=== PATIENT | male | born 1930 | race Caucasian/White ===

== ENCOUNTER 2016-07-31 12:03 | Inpatient (IN) | payer MEDICARE, BC ==
[~2016-07-31] VITALS: Ht 172.7 cm; Wt 60.3 kg
[~2016-07-31 12:03] MED LIST: ATEN1TAB73 PO; BIOTCAP PO; ECHI167T PO; GABA100C4 PO; GNP120TA3 PO; OMEG1CAP53 PO; SAWPOW; VITA400C28 PO; VITA400C70 PO
[2016-07-31 12:08] VITALS: BP 198/74; PULSE 65; RESP 17; TEMP 98.2; O2SAT 96
--- NOTE | 2016-07-31 14:43 | PD ---
HPI Chief Complaint: Abdominal Pain Time Seen by Provider: 14:35 Travel History International Travel<30 days: Yes Contact w/Intl Traveler<30days: [place] of Country Traveled to: [place] Traveled to known affect area: No History of Present Illness HPI 85-year-old male presents for evaluation of abdominal pain. Symptoms started this morning when he woke up at 9 AM. He describes it as an aching pain in the epigastrium which is constant. Nothing makes it better or worse. The pain does not radiate anywhere else. Denies any chest pain or shortness of breath, fevers or chills, flank pain, dysuria, testicular or scrotal pain, hematuria, diarrhea or constipation. He does note that he has had a dry cough for about a week. He reports a history of bilateral hernia repair as well as appendectomy in the past. No history of pancreatitis, cholecystitis. No other complaints. Primary care physician is Dr. Nam. [facility] Past Medical History Anemia: Yes Arthritis: Yes (HANDS KNEES) Atrial Fibrillation: Yes Autoimmune Disease: No Blood Disorders: No Anxiety: Yes Depression: Yes Heart Rhythm Problems: Yes (HISTORY OF ARRYTHMIA, ATENOLOL QOD ) Cancer: No Cardiovascular Problems: Yes (afib) Chemotherapy: No Cerebrovascular Accident: No Diabetes: No Diminished Hearing: No Endocrine: No Gastrointestinal Disorders: Yes (HX OF COLON POLYPS, DIVERTICULOSIS) GERD: Yes Genitourinary: No Headaches: Yes Hepatitis: No Hiatal Hernia: No Hypertension: No Immune Disorder: No Musculoskeletal: Yes Neurologic: No Psychiatric: No Reproductive: No Respiratory: No Immunizations Current: No Radiation Therapy: No Renal Failure: No Seizures: No Thyroid Disease: No Ulcer: Yes (GASTRIC) Past Surgical History Abdominal Surgery: Yes AICD: No Appendectomy: Yes Cardiac Surgery: No Cholecystectomy: Yes (2004) Ear Surgery: No Endocrine Surgery: No Eye Surgery: Yes (CATARACTS) Genitourinary Surgery: No Gynecologic Surgery: No Joint Replacement: No Neurologic Surgery: Yes (LUMBAR LAMINECTOMY) Oral Surgery: Yes (DENTURES, TONSILECTOMY) Pacemaker: No Thoracic Surgery: No Other Surgery: Yes Social History Alcohol Use: No Tobacco Use: No Substance Use: No Allergies-Medications (Allergen,Severity, Reaction): Coded Allergies: Local Anesthetics (Verified Allergy, Severe, ALLERGY TO NOVOCAIN, 3/27/17) PT STATES THAT HE HAS HAD NOVOCAINE NUMEROUS TIMES SINCE THIS EPISODE ALMOST 30 YRS AGO WITHOUT PROBLEM Reported Meds & Prescriptions Reported Meds & Active Scripts Active Review of Systems Except as stated in HPI: all other systems reviewed are Neg Physical Exam Narrative GENERAL: Well-developed well-nourished male in no acute distress SKIN: Warm and dry. HEAD: Atraumatic. Normocephalic. EYES: Pupils equal and round. No scleral icterus. No injection or drainage. ENT: No nasal bleeding or discharge. Mucous membranes pink and moist. NECK: Trachea midline. No JVD. CARDIOVASCULAR: Regular rate and rhythm. No murmur appreciated. RESPIRATORY: No accessory muscle use. Clear to auscultation. Breath sounds equal bilaterally. GASTROINTESTINAL: Abdomen soft, tender to palpation in the epigastrium without guarding. Mild right upper quadrant and left upper quadrant tenderness. MUSCULOSKELETAL: No obvious deformities. No edema. NEUROLOGICAL: Awake and alert. No obvious cranial nerve deficits. Motor grossly within normal limits. Normal speech. PSYCHIATRIC: Appropriate mood and affect; insight and judgment normal. Data Data Last Documented VS Vital Signs Date Time Temp Pulse Resp B/P Pulse Ox O2 Delivery O2 Flow Rate FiO2 07/31/16 17:30 18 07/31/16 17:30 67 159/73 97 Room Air 07/31/16 12:08 98.2 Orders Complete Blood Count With Diff (07/31/16 14:41) Comprehensive Metabolic Panel (07/31/16 14:41) Lipase (07/31/16 14:41) Urinalysis - C+S If Indicated (07/31/16 14:41) Ct Abd/Pel W Iv Contrast(Rout) (07/31/16 14:41) Electrocardiogram (07/31/16 14:41) Ed Poc Ultrasound (07/31/16 ) Labs Laboratory Tests Test 07/31/16 14:50 White Blood Count 8.3 TH/MM3 Red Blood Count 4.27 MIL/MM3 Hemoglobin 12.6 GM/DL Hematocrit 37.3 % Mean Corpuscular Volume 87.3 FL Mean Corpuscular Hemoglobin 29.6 PG Mean Corpuscular Hemoglobin 33.9 % Concent Red Cell Distribution Width 14.8 % Platelet Count 183 TH/MM3 Mean Platelet Volume 9.3 FL Neutrophils (%) (Auto) 64.6 % Lymphocytes (%) (Auto) 25.4 % Monocytes (%) (Auto) 9.0 % Eosinophils (%) (Auto) 0.5 % Basophils (%) (Auto) 0.5 % Neutrophils # (Auto) 5.4 TH/MM3 Lymphocytes # (Auto) 2.1 TH/MM3 Monocytes # (Auto) 0.7 TH/MM3 Eosinophils # (Auto) 0.0 TH/MM3 Basophils # (Auto) 0.0 TH/MM3 CBC Comment DIFF FINAL Differential Comment Urine Color LIGHT-YELLOW Urine Turbidity CLEAR Urine pH 8.0 Urine Specific [place] 1.007 Urine Protein NEG mg/dL Urine Glucose (UA) NEG mg/dL Urine Ketones NEG mg/dL Urine Occult Blood SMALL Urine Nitrite NEG Urine Bilirubin NEG Urine Urobilinogen LESS THAN 2.0 MG/DL Urine Leukocyte Esterase NEG Urine RBC 47 /hpf Urine WBC 1 /hpf Urine Squamous Epithelial <1 /hpf Cells Microscopic Urinalysis Comment CULT NOT INDICATED Sodium Level 141 MEQ/L Potassium Level 4.1 MEQ/L Chloride Level 103 MEQ/L Carbon Dioxide Level 32.5 MEQ/L Anion Gap 6 MEQ/L Blood Urea Nitrogen 16 MG/DL Creatinine 0.87 MG/DL Estimat Glomerular Filtration 84 ML/MIN Rate Random Glucose 106 MG/DL Calcium Level 8.8 MG/DL Total Bilirubin 0.2 MG/DL Aspartate Amino Transf 45 U/L (AST/SGOT) Alanine Aminotransferase 48 U/L (ALT/SGPT) Alkaline Phosphatase 63 U/L Total Protein 6.5 GM/DL Albumin 3.5 GM/DL Lipase 1103 U/L [facility] Medical Decision Making Medical Screen Exam Complete: Yes Emergency Medical Condition: Yes Medical Record Reviewed: Yes Differential Diagnosis Pancreatitis, bowel obstruction, biliary colic, cholecystitis, AAA, ACS, colitis , gastritis Narrative Course 85-year-old male who woke up with epigastric abdominal pain this morning. The patient was initially seen in triage were lab work, EKG, CT abdomen and pelvis have been ordered. The patient will be moved to medical bed when one becomes available. [employer] Trev[employer] Jul 31, 2016 14:43
[2016-07-31 15:28] LABS: AUTOMATED NEUTROPHIL # 5.4 TH/MM3 (1.8-7.7); BASOPHIL % 0.5 % (0.0-2.0); EOSINOPHIL % 0.5 % (0.0-4.0); HEMATOCRIT 37.3 % (39.0-51.0); HEMO FLAGS DIFF FINAL; LYMPH % 25.4 % (9.0-44.0); LYMPHOCYTE # 2.1 TH/MM3 (1.0-4.8); MEAN CELL VOLUME 87.3 FL (80.0-100.0); MEAN CORPUSCULAR HEMOGLOBIN 29.6 PG (27.0-34.0); MEAN CORPUSCULAR HGB CONC 33.9 % (32.0-36.0); NEUT % 64.6 % (16.0-70.0); PLATELET COUNT 183 TH/MM3 (150-450); RED BLOOD COUNT 4.27 MIL/MM3 (4.50-5.90); RED CELL DISTRIBUTION WIDTH 14.8 % (11.6-17.2); WHITE BLOOD COUNT 8.3 TH/MM3 (4.0-11.0)
[2016-07-31 15:35] LABS: BLOOD, URINE SMALL (NEG); GLUCOSE,URINE NEG (NEG); KETONE, URINE NEG (NEG); NITRITE,URINE NEG (NEG); SQUAMOUS EPITHELIAL CELL URINE <1 /hpf (0-5); URINE COLOR LIGHT-YELLOW (YELLW/STRAW)
[2016-07-31 15:37] LABS: COMMENT (UR) CULT NOT INDICATED; CULTURE IF INDICATED CULT NOT INDICATED
[2016-07-31 15:48] LABS: ANION GAP 6 MEQ/L (5-15); AST (GOT) 45 U/L (15-37); BICARBONATE 32.5 MEQ/L (21.0-32.0); BLOOD UREA NITROGEN 16 MG/DL (7-18); CHLORIDE 103 MEQ/L (98-107); GLOMERULAR FILTRATION RATE 84 ML/MIN (>89); POTASSIUM 4.1 MEQ/L (3.5-5.1); SODIUM (NA) 141 MEQ/L (136-145)
[2016-07-31 15:51] LABS: ALKALINE PHOSPHATASE 63 U/L (45-117); ALT (GPT) 48 U/L (12-78); TOTAL BILIRUBIN ADULT 0.2 MG/DL (0.2-1.0)
[2016-07-31 17:30] VITALS: BP 159/73; PULSE 67; RESP 16; O2SAT 97
[2016-07-31] MEDS ORDERED: IOHEXOL 350 MG/ML 10 ML VIAL (for RAD DIAG) IV ONE (18:08)
[2016-07-31] MEDS ORDERED: BIOT50005 PO (18:15)
[2016-07-31] MEDS ORDERED: VITATAB11 PO (18:15)
[2016-07-31] MEDS ORDERED: [UNRECOGNIZED DRUG - CODE] PO (18:15)
[2016-07-31] MEDS ORDERED: OMEP40CA2 PO (18:15)
[2016-07-31] MEDS ORDERED: MISC1CAP2 PO (18:15)
[2016-07-31] MEDS ORDERED: TYLE325T PO (18:15)
[2016-07-31] MEDS ORDERED: ATEN50TA PO (18:15)
[2016-07-31] MEDS ORDERED: GLUCCAP5 PO (18:15)
[2016-07-31] MEDS ORDERED: VITA10006 PO (18:15)
[2016-07-31] MEDS ORDERED: NAPR220T95 PO (18:15)
[2016-07-31] MEDS ORDERED: PREV10CA PO (18:15)
[2016-07-31] MEDS ORDERED: GINK120C4 PO (18:15)
[2016-07-31] MEDS ORDERED: OMEG5CAP PO (18:15)
[2016-07-31] MEDS ORDERED: TAMS0.4C4 PO (18:15)
[2016-07-31] MEDS ORDERED: VITA200012 PO (18:15)
[2016-07-31] MEDS ORDERED: GABA300C5 PO (18:15)
--- NOTE | 2016-07-31 18:29 | RADRPT ---
EXAM DATE/TIME: 07/31/2016 17:59 [place] COMPARISON: CT PULMONARY ANGIOGRAM, June 17, 2015, 12:01. INDICATIONS : Epigastric pain since this morning. IV CONTRAST: 70 cc Omnipaque 350 (iohexol) IV ORAL CONTRAST: No oral contrast ingested. RADIATION DOSE: 9.96 CTDIvol (mGy) MEDICAL HISTORY : Cardiovascular disease. Gastroesophageal reflux disease. Diverticulosis.Prostate cancer SURGICAL HISTORY : Appendectomy. Cholecystectomy.Discectomy, lumbar.Hernia's ENCOUNTER: Initial ACUITY: 1 day PAIN SCALE: 7/10 LOCATION: epigastric region TECHNIQUE: Volumetric scanning of the abdomen and pelvis was performed. Using automated exposure control and ad justment of the mA and/or kV according to patient size, radiation dose was kept as low as reasonably achievable to obtain optimal diagnostic quality images. FINDINGS: There is moderate hydronephrosis on the left to the level of the proximal ureter which raises the pos sibility of congenital UPJ obstruction or possible proximal ureteral stricture. No calcified obstruc ting calculus is noted. Bilateral renal cysts are noted. The largest cyst is noted arising from the lower pole on the left and measures 6.2 cm. The liver, spleen, pancreas and adrenal glands are unre markable. The gallbladder has been resected. The abdominal aorta is calcified but is not aneurysmal ly dilated. The inferior vena cava is normal. No paraaortic, retroperitoneal or mesenteric lymphaden opathy is noted. Degenerative changes are noted throughout the thoracolumbar spine. The urinary bita dder is unremarkable. The prostate gland contains multiple radiation seed implants. No pelvic lymphad enopathy is noted. Bilateral inguinal hernia repairs are noted. No recurrent abdominal wall hernia i s noted. The visualized lung bases are clear. CONCLUSION: 1. Moderate hydronephrosis on the left to the level of the proximal ureter suggestive of congenital U PJ obstruction or possible proximal ureteral stricture. No calcified obstructing ureteral calculus i s noted. 2. Bilateral renal cysts. 3. Degenerative changes throughout the thoracolumbar spine. Yusuf Sneed MD on July 31, 2016 at 18:15 Board Certified Radiologist. This report was verified electronically.
[2016-07-31 18:50] VITALS: BP 159/71; PULSE 68; RESP 16; O2SAT 99
--- NOTE | 2016-07-31 19:24 | PD ---
Physical Exam Narrative I, Dr. Jackson, have reviewed the advance practice practitioner's documentation and am in agreement, met with the patient face to face, made the diagnosis, and the medical decision making was done by me. *My assessment and Findings: Acute pancreatitis vs. gastritis 85yo M with PMH of prostate CA presents to the ED with c/o epigastric abdominal pain that started at 9am this morning. States initially he had back pain but it is now in epigastric region. +Chills. +Hematuria. Denies n/v, dysuria. Labs reviewed, no leukocytosis. H/H low at 12.6/37.3 but at baseline. Lipase is elevated at 1103. AST mildly elevated at 45. UA showed small blood. RBC 47. CTa/p showed moderate hydronephrosis on left suggestive of congenital UPJ obstruction or possible proximal ureteral stricture. Pancreas unremarkable in CT scan. Morphine 2mg IV given for pain. Pt's urologist is Dr. Sushil Reilly. Discussed with Dr. Dinh and accepted to her service for pancreatitis. Data Data Last Documented VS Vital Signs Date Time Temp Pulse Resp B/P Pulse Ox O2 Delivery O2 Flow Rate FiO2 07/31/16 18:50 68 16 159/71 99 Room Air 07/31/16 12:08 98.2 Orders Complete Blood Count With Diff (07/31/16 14:41) Comprehensive Metabolic Panel (07/31/16 14:41) Lipase (07/31/16 14:41) Urinalysis - C+S If Indicated (07/31/16 14:41) Ct Abd/Pel W Iv Contrast(Rout) (07/31/16 14:41) Electrocardiogram (07/31/16 14:41) Ed Poc Ultrasound (07/31/16 ) Iohexol 350 Inj (Omnipaque 350 Inj) (07/31/16 18:08) Morphine Inj (Morphine Inj) (07/31/16 19:30) D5-1/2 Ns + Kcl 20 Meq Inj (D5-1/2 Ns + (07/31/16 19:30) Admit Order (Ed Use Only) (07/31/16 19:52) Labs Laboratory Tests Test 07/31/16 14:50 White Blood Count 8.3 TH/MM3 Red Blood Count 4.27 MIL/MM3 Hemoglobin 12.6 GM/DL Hematocrit 37.3 % Mean Corpuscular Volume 87.3 FL Mean Corpuscular Hemoglobin 29.6 PG Mean Corpuscular Hemoglobin 33.9 % Concent Red Cell Distribution Width 14.8 % Platelet Count 183 TH/MM3 Mean Platelet Volume 9.3 FL Neutrophils (%) (Auto) 64.6 % Lymphocytes (%) (Auto) 25.4 % Monocytes (%) (Auto) 9.0 % Eosinophils (%) (Auto) 0.5 % Basophils (%) (Auto) 0.5 % Neutrophils # (Auto) 5.4 TH/MM3 Lymphocytes # (Auto) 2.1 TH/MM3 Monocytes # (Auto) 0.7 TH/MM3 Eosinophils # (Auto) 0.0 TH/MM3 Basophils # (Auto) 0.0 TH/MM3 CBC Comment DIFF FINAL Differential Comment Urine Color LIGHT-YELLOW Urine Turbidity CLEAR Urine pH 8.0 Urine Specific [place] 1.007 Urine Protein NEG mg/dL Urine Glucose (UA) NEG mg/dL Urine Ketones NEG mg/dL Urine Occult Blood SMALL Urine Nitrite NEG Urine Bilirubin NEG Urine Urobilinogen LESS THAN 2.0 MG/DL Urine Leukocyte Esterase NEG Urine RBC 47 /hpf Urine WBC 1 /hpf Urine Squamous Epithelial <1 /hpf Cells Microscopic Urinalysis Comment CULT NOT INDICATED Sodium Level 141 MEQ/L Potassium Level 4.1 MEQ/L Chloride Level 103 MEQ/L Carbon Dioxide Level 32.5 MEQ/L Anion Gap 6 MEQ/L Blood Urea Nitrogen 16 MG/DL Creatinine 0.87 MG/DL Estimat Glomerular Filtration 84 ML/MIN Rate Random Glucose 106 MG/DL Calcium Level 8.8 MG/DL Total Bilirubin 0.2 MG/DL Aspartate Amino Transf 45 U/L (AST/SGOT) Alanine Aminotransferase 48 U/L (ALT/SGPT) Alkaline Phosphatase 63 U/L Total Protein 6.5 GM/DL Albumin 3.5 GM/DL Lipase 1103 U/L [facility] Supervised Visit with SHARON: Yes Interpretation(s) EKG: NSR 83bpm. Normal axis. No ST segment elevation or depression. Diagnosis Primary Impression: Pancreatitis Qualified Code: K85.90 - Acute pancreatitis, unspecified complication status, unspecified pancreatitis type Additional Impression: Hydronephrosis Qualified Code: N13.1 - Hydronephrosis with ureteral stricture, not elsewhere classified Admitting Information Admitting Physician Requests: Admit Fátima Jackson DO Jul 31, 2016 19:24
[2016-07-31] MEDS ORDERED: MORPHINE SULFATE 4 MG/ML INJ IV PUSH ONE (19:30)
[2016-07-31] MEDS ORDERED: D5-1/2 NS + KCL 20 MEQ INJ 1,000 ML IV SCH (19:30)
--- NOTE | 2016-07-31 19:58 | HHI.HP ---
[facility] Brenda Davis MD Admission Diagnosis Hydronephrosis, pancreatitis Diagnoses: (1) Pancreatitis Diagnosis: Principal (2) Hydronephrosis Diagnosis: Principal (3) Prostate CA Diagnosis: Principal (4) HTN (hypertension) Diagnosis: Principal Travel History International Travel<30 Days: Yes Contact w/Intl Traveler <30 Da: [place] of Country Traveled to: [place] Traveled to Known Affected Are: No History of Present Illness This is an 85-year-old male with PMH of HTN, A-fib and Prostate CA who presented to the ER w/ complaints of acute onset of epigastric pain. States symptoms started earlier this morning, associated nausea but no vomiting. Denies fever, chills or diarrhea. On arrival, BP 198/74, HR 65, O2 sat 96% on RA, Afebrile. CBC unremarkable. Chemistry essentially unremarkable. Lipase 1103. UA with hematuria. 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 BUN/Creatinine normal. Urine output normal. Following w/ Dr. Reilly as outpatient, recent diagnosis of Prostate CA 2 months ago, scheduled for MRI at [facility] tomorrow for staging. Review of Systems Except as stated in HPI: all other systems reviewed are Neg ROS: 14 point review of systems otherwise negative. Past Family Social History Past Medical History PMH: HTN, A-fib and Prostate CA Past Surgical History PAST SURGICAL HISTORY: Appendectomy, Cataract Surgery, Cholecystectomy, Lumbar Laminectomy, Tonsillectomy Allergies: Coded Allergies: Local Anesthetics (Verified Allergy, Severe, ALLERGY TO NOVOCAIN, 07/31/16) PT STATES THAT HE HAS HAD NOVOCAINE NUMEROUS TIMES SINCE THIS EPISODE ALMOST 30 YRS AGO WITHOUT PROBLEM Family History PAST FAMILY HISTORY: Reviewed. No h/o DM or CAD Social History PAST SOCIAL HISTORY: Negative for alcohol, tobacco or drugs. Physical Exam Vital Signs Vital Signs Date Time Temp Pulse Resp B/P Pulse Ox O2 Delivery O2 Flow Rate FiO2 07/31/16 18:50 68 16 159/71 99 Room Air 07/31/16 17:30 18 3/27/17 17:30 67 16 159/73 97 Room Air 07/31/16 12:08 98.2 65 17 198/74 96 Physical Exam PE: GENERAL: Very pleasant elderly Serbian male in no acute distress. HEENT: PERRLA, EOMI. No scleral icterus or conjunctival pallor. No lid lag or facial droop. CARDIOVASCULAR: Regular rate and rhythm. No obvious murmurs to auscultation. No chest tenderness to palpation. RESPIRATORY: No obvious rhonchi or wheezing. Clear to auscultation. Breath sounds equal bilaterally. GASTROINTESTINAL: Abdomen soft, mild epigastric tenderness to palpation, nondistended. BS normal. MUSCULOSKELETAL: Extremities without clubbing, cyanosis, or edema. No obvious deformities. NEUROLOGICAL: Awake, alert and oriented x4. No focal neurologic deficits. Moving both upper and lower extremities spontaneously. Laboratory Laboratory Tests Test 07/31/16 14:50 White Blood Count 8.3 Red Blood Count 4.27 Hemoglobin 12.6 Hematocrit 37.3 Mean Corpuscular Volume 87.3 Mean Corpuscular Hemoglobin 29.6 Mean Corpuscular Hemoglobin 33.9 Concent Red Cell Distribution Width 14.8 Platelet Count 183 Mean Platelet Volume 9.3 Neutrophils (%) (Auto) 64.6 Lymphocytes (%) (Auto) 25.4 Monocytes (%) (Auto) 9.0 Eosinophils (%) (Auto) 0.5 Basophils (%) (Auto) 0.5 Neutrophils # (Auto) 5.4 Lymphocytes # (Auto) 2.1 Monocytes # (Auto) 0.7 Eosinophils # (Auto) 0.0 Basophils # (Auto) 0.0 CBC Comment DIFF FINAL Differential Comment Urine Color LIGHT-YELLOW Urine Turbidity CLEAR Urine pH 8.0 Urine Specific [place] 1.007 Urine Protein NEG Urine Glucose (UA) NEG Urine Ketones NEG Urine Occult Blood SMALL Urine Nitrite NEG Urine Bilirubin NEG Urine Urobilinogen LESS THAN 2.0 Urine Leukocyte Esterase NEG Urine RBC 47 Urine WBC 1 Urine Squamous Epithelial <1 Cells Microscopic Urinalysis Comment CULT NOT INDICATED Sodium Level 141 Potassium Level 4.1 Chloride Level 103 Carbon Dioxide Level 32.5 Anion Gap 6 Blood Urea Nitrogen 16 Creatinine 0.87 Estimat Glomerular Filtration 84 Rate Random Glucose 106 Calcium Level 8.8 Total Bilirubin 0.2 Aspartate Amino Transf 45 (AST/SGOT) Alanine Aminotransferase 48 (ALT/SGPT) Alkaline Phosphatase 63 Total Protein 6.5 Albumin 3.5 Lipase 1103 Result Diagram: 07/31/16 1450 07/31/16 1450 Assessment and Plan Problem List: (1) Pancreatitis ICD Code: K85.90 Status: Acute (2) Hydronephrosis ICD Code: N13.30 Status: Acute (3) Prostate CA ICD Code: C61 Status: Acute (4) HTN (hypertension) ICD Code: I10 Status: Acute Assessment and Plan A/P: 1. Pancreatitis: acute onset of epigastric pain w/ associated nausea. Lipase 1103. CT Abd/Pelvis w/ no abnormalities involving the pancreas, images reviewed by me. Protonix IV, IVF, repeat lipase in am. Analgesics/antiemetics as needed. 2. Hydronephrosis: CT Abd/Pelvis w/ moderate left hydronephrosis suggestive of congenital UPJ obstruction or ureteral stricture, no stone noted, images reviewed by me. No recent images for comparison. BUN/Creatinine normal. Urine output normal. 3. Prostate CA: recent diagnosis 2months ago per patient, following w/ Dr. Reilly. Scheduled for MRI tomorrow at [facility] for Prostate Staging. Will order MRI here as pt has already gone through prep. Called Dr. Reilly's service in order to get details on specific MRI requested, however was told Dr. Reilly has no privileges and we would need to call Urology [employer]. Spoke w/ Dr. Beltran, recommended I contact [facility] for specific order. Called [facility], they are closed at this time. Reviewed order from [facility] via ER system w/ assistance of ER doc, order is for MRI w/ and w/o contrast. Will order same. Fleet enema 2hrs pior to imaging. Pt to follow w/ Dr. Reilly as outpatient. 4. HTN: BP 190's on arrival, likely compounded by pain complaints, currently BP 150's. Will monitor. Resume home Atenolol. 5. DVT Prophylaxis: SCD/Teds. 6. Social work for d/c planning as needed. 7. Case discussed w/ ER physician at length. Physician Certification 2 Midnight Certification Type: Admission for Inpatient Services Order for Inpatient Services The services are ordered in accordance with Medicare regulations or non- Medicare payer requirements, as applicable. In the case of services not specified as inpatient-only, they are appropriately provided as inpatient services in accordance with the 2-midnight benchmark. Estimated LOS (days): 2 days is the estimated time the patient will need to remain in the hospital, assuming treatment plan goals are met and no additional complications. Post-Hospital Plan: Home Problem Qualifiers (1) Pancreatitis: Qualified Code: K85.90 - Acute pancreatitis, unspecified complication status, unspecified pancreatitis type (2) Hydronephrosis: Qualified Code: N13.1 - Hydronephrosis with ureteral stricture, not elsewhere classified Alisa Dinh MD Jul 31, 2016 19:58
[2016-07-31 19:59] VITALS: BP 171/73; PULSE 58; RESP 16; O2SAT 98
[2016-07-31] MEDS ORDERED: BISACODYL 10 MG SUPP PR PRN (20:00)
[2016-07-31] MEDS ORDERED: ONDANSETRON HCL 4 MG/2 ML VIAL IVP PRN (20:00)
[2016-07-31] MEDS ORDERED: HYDROmorphone HCL PF 1 MG/ML VIAL IV PRN (20:00)
[2016-07-31] MEDS ORDERED: SODIUM CHLORIDE 0.9% FLUSH 10 ML FLUSH IV FLUSH PRN (20:00)
[2016-07-31] MEDS ORDERED: ACETAMINOPHEN 325 MG TAB PO PRN (20:00)
[2016-07-31] MEDS: SODIUM CHLORIDE 0.9% FLUSH 10 ML FLUSH IV FLUSH SCH (21:17)
[2016-07-31] MEDS: SODIUM CHLOR 0.9% 1000 ML INJ 1,000 ML IV SCH (21:17)
[2016-07-31 22:07] VITALS: BP 153/72; PULSE 57; RESP 20; TEMP 97.8; O2SAT 99
[2016-07-31] MEDS: PANTOPRAZOLE SODIUM 40 MG VIAL IV PUSH SCH (22:44)
[2016-07-31] MEDS: TAMSULOSIN HCL 0.4 MG CAP PO SCH (22:44)
[2016-08-01] VITALS (7 sets, daily range): BP systolic 94–121; BP diastolic 50–59; PULSE 56–75; RESP 14–20; TEMP 97.5–98.7; O2SAT 92–98
[2016-08-01] MEDS: SODIUM CHLOR 0.9% 1000 ML INJ 1,000 ML IV SCH ×2 (05:35→15:56)
[2016-08-01 06:14] LABS: BASOPHIL % 0.7 % (0.0-2.0); EOSINOPHIL # 0.1 TH/MM3 (0-0.4); EOSINOPHIL % 1.8 % (0.0-4.0); HEMATOCRIT 33.7 % (39.0-51.0); HEMO FLAGS DIFF FINAL; LYMPH % 36.1 % (9.0-44.0); LYMPHOCYTE # 2.2 TH/MM3 (1.0-4.8); MEAN CELL VOLUME 86.2 FL (80.0-100.0); MEAN CORPUSCULAR HEMOGLOBIN 30.2 PG (27.0-34.0); MONO % 12.6 % (0.0-8.0); NEUT % 48.8 % (16.0-70.0); PLATELET COUNT 146 TH/MM3 (150-450); RED BLOOD COUNT 3.91 MIL/MM3 (4.50-5.90); RED CELL DISTRIBUTION WIDTH 14.9 % (11.6-17.2); WHITE BLOOD COUNT 6.1 TH/MM3 (4.0-11.0)
[2016-08-01 06:42] LABS: ALKALINE PHOSPHATASE 67 U/L (45-117); ALT (GPT) 65 U/L (12-78); ANION GAP 5 MEQ/L (5-15); AST (GOT) 66 U/L (15-37); BICARBONATE 32.2 MEQ/L (21.0-32.0); BLOOD UREA NITROGEN 14 MG/DL (7-18); CHLORIDE 104 MEQ/L (98-107); GLOMERULAR FILTRATION RATE 96 ML/MIN (>89); POTASSIUM 4.3 MEQ/L (3.5-5.1); SODIUM (NA) 141 MEQ/L (136-145); TOTAL BILIRUBIN ADULT 0.3 MG/DL (0.2-1.0)
--- NOTE | 2016-08-01 07:51 | HHI.PR ---
Subjective Remarks This is an 85-year-old male with PMH of HTN, A-fib and Prostate CA who presented to the ER w/ complaints of acute onset of epigastric pain. States symptoms started earlier this morning, associated nausea but no vomiting. Denies fever, chills or diarrhea. On arrival, BP 198/74, HR 65, O2 sat 96% on RA, Afebrile. CBC unremarkable. Chemistry essentially unremarkable. Lipase 1103. UA with hematuria. 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 BUN/Creatinine normal. Urine output normal. Following w/ Dr. Reilly as outpatient, recent diagnosis of Prostate CA 2 months ago, scheduled for MRI at [place] [facility] for Staging the test was recommended to be performed here in this facility but as per Radiology department we are not able to perform this kind of test will need to be performed in his facility, seen in his bedroom and improving his abdominal pain, improving his Lipase to 280, has cough will start Bronchodilator, Mucolytic and Incentive spirometry encourage activity, Objective Vital Signs Date Time Temp Pulse Resp B/P Pulse Ox O2 Delivery O2 Flow Rate FiO2 08/01/16 07:13 97.5 57 14 116/59 96 08/01/16 04:16 97.6 61 20 108/53 95 08/01/16 00:27 98.7 58 20 114/55 95 07/31/16 22:07 97.8 57 20 153/72 99 07/31/16 19:59 58 16 171/73 98 Room Air 07/31/16 18:50 68 16 159/71 99 Room Air 07/31/16 17:30 18 07/31/16 17:30 67 16 159/73 97 Room Air 07/31/16 12:08 98.2 65 17 198/74 96 I/O 07/31/16 07/31/16 07/31/16 08/01/16 08/01/16 08/01/16 07:00 15:00 23:00 07:00 15:00 23:00 Output Total 375 ml Balance -375 ml Output Urine Total 375 ml # Voids 2 Result Diagram: 08/01/16 0517 08/01/16 0517 Imaging Last Impressions Abdomen/Pelvis CT 07/31/16 1441 Signed Impressions: Service Date/Time: Sunday, July 31, 2016 17:59 - CONCLUSION: 1. Moderate hydronephrosis on the left to the level of the proximal ureter suggestive of congenital UPJ obstruction or possible proximal ureteral stricture. No calcified obstructing ureteral calculus is noted. 2. Bilateral renal cysts. 3. Degenerative changes throughout the thoracolumbar spine. Yusuf Sneed MD Procedures No procedures performed. Other Results Laboratory Tests Test 07/31/16 08/01/16 14:50 05:17 Urine Color LIGHT-YELLOW Urine Turbidity CLEAR Urine pH 8.0 Urine Specific [place] 1.007 Urine Protein NEG mg/dL Urine Glucose (UA) NEG mg/dL Urine Ketones NEG mg/dL Urine Occult Blood SMALL Urine Nitrite NEG Urine Bilirubin NEG Urine Urobilinogen LESS THAN 2.0 MG/DL Urine Leukocyte Esterase NEG Urine RBC 47 /hpf Urine WBC 1 /hpf Urine Squamous Epithelial <1 /hpf Cells Microscopic Urinalysis Comment CULT NOT INDICATED White Blood Count 6.1 TH/MM3 Red Blood Count 3.91 MIL/MM3 Hemoglobin 11.8 GM/DL Hematocrit 33.7 % Mean Corpuscular Volume 86.2 FL Mean Corpuscular Hemoglobin 30.2 PG Mean Corpuscular Hemoglobin 35.0 % Concent Red Cell Distribution Width 14.9 % Platelet Count 146 TH/MM3 Mean Platelet Volume 8.9 FL Neutrophils (%) (Auto) 48.8 % Lymphocytes (%) (Auto) 36.1 % Monocytes (%) (Auto) 12.6 % Eosinophils (%) (Auto) 1.8 % Basophils (%) (Auto) 0.7 % Neutrophils # (Auto) 3.0 TH/MM3 Lymphocytes # (Auto) 2.2 TH/MM3 Monocytes # (Auto) 0.8 TH/MM3 Eosinophils # (Auto) 0.1 TH/MM3 Basophils # (Auto) 0.0 TH/MM3 CBC Comment DIFF FINAL Differential Comment Sodium Level 141 MEQ/L Potassium Level 4.3 MEQ/L Chloride Level 104 MEQ/L Carbon Dioxide Level 32.2 MEQ/L Anion Gap 5 MEQ/L Blood Urea Nitrogen 14 MG/DL Creatinine 0.77 MG/DL Estimat Glomerular Filtration 96 ML/MIN Rate Random Glucose 94 MG/DL Calcium Level 8.4 MG/DL Total Bilirubin 0.3 MG/DL Aspartate Amino Transf 66 U/L (AST/SGOT) Alanine Aminotransferase 65 U/L (ALT/SGPT) Alkaline Phosphatase 67 U/L Total Protein 5.6 GM/DL Albumin 2.9 GM/DL Lipase 280 U/L Objective Remarks GENERAL: No acute distress. HEENT: PERRLA, EOMI. No scleral icterus or conjunctival pallor. No lid lag or facial droop. CARDIOVASCULAR: Regular rate and rhythm. No obvious murmurs to auscultation. No chest tenderness to palpation. RESPIRATORY: No obvious rhonchi or wheezing. Clear to auscultation. Breath sounds equal bilaterally. GASTROINTESTINAL: Abdomen soft, mild epigastric tenderness to palpation, nondistended. BS normal. MUSCULOSKELETAL: Extremities without clubbing, cyanosis, or edema. No obvious deformities. NEUROLOGICAL: Awake, alert and oriented x4. No focal neurologic deficits. Moving both upper and lower extremities spontaneously. Medications and IVs Current Medications Medications (Trade) Dose Ordered Sig/Lakshmi Route Start Time Stop Time Status Last Admin (Neurontin) 300 mg DAILY PO 08/01/16 09:00 (Flomax) 0.4 mg HS PO 07/31/16 21:00 07/31/16 22:44 Pantoprazole Sodium 40 mg 40 mg Q12H IV PUSH 07/31/16 21:00 07/31/16 22:44 (NS 1000 ml Inj) 1,000 ml @ 100 mls/hr Q10H IV 07/31/16 19:56 07/31/16 21:17 (NS Flush) 2 ml UNSCH PRN IV FLUSH 07/31/16 20:00 (NS Flush) 2 ml BID IV FLUSH 07/31/16 21:00 07/31/16 21:17 (Zofran Inj) 4 mg Q6H PRN IVP 07/31/16 20:00 (Dulcolax Supp) 10 mg DAILY PRN [place] 07/31/16 20:00 (Tylenol) 650 mg Q6H PRN PO 07/31/16 20:00 ([place] 5-325 Mg) 1 tab Q4H PRN PO 07/31/16 20:00 (Dilaudid Pf Inj) 0.5 mg Q3H PRN IV 07/31/16 20:00 07/31/16 22:44 A/P Problem List: (1) Pancreatitis ICD Code: K85.90 (2) HTN (hypertension) ICD Code: I10 (3) Prostate CA ICD Code: C61 Assessment and Plan 1. Pancreatitis: acute onset of epigastric pain w/ associated nausea. Lipase 1103. CT Abd/Pelvis w/ no abnormalities involving the pancreas. Protonix IV, IVF, repeat lipase in am. Analgesics /antiemetics as needed. 2. Hydronephrosis: CT Abd/Pelvis w/ moderate left hydronephrosis suggestive of congenital UPJ obstruction or ureteral stricture no stone noted, images reviewed by me. No recent images for comparison. BUN/Creatinine normal. Urine output normal. 3. Prostate CA: recent diagnosis 2months ago per patient, following w/ Dr. Reilly. Scheduled for MRI today at [facility] for Prostate Staging. Will order MRI here as pt has already gone through prep. Called Dr. Reilly's service in order to get details on specific MRI requested, however was told Dr. Reilly has no privileges and we would need to call Urology educational consultant. Admitted hospitalist Spoke w/ Dr. Beltran, recommended I contact [facility] for specific order. Called [facility], they were closed at that time, but Reviewed order from [facility] via ER system w / assistance of ER doc, order is for MRI w/ and w/o contrast. was not possible to perform this test here. will need to be done in his facility as outpatient. 4. Accelerated Hypertension controlled today was 190s on admission. 5. Cough he has multiple pulmonary issues in the past and he is coughing will start Bronchodilator, Mucolytic, Incentive spirometry and will get CXR if he is improving his condition will discharge home. later on today or in am tomorrow. DVT Prophylaxis: SCD/Teds. Social work for d/c planning as needed. Discharge Planning Expected later today or in am tomorrow. Problem Qualifiers (1) Pancreatitis: Qualified Code: K85.90 - Acute pancreatitis, unspecified complication status, unspecified pancreatitis type Michael Esparza MD Aug 01, 2016 07:51
[2016-08-01] MEDS: GABAPENTIN 300 MG CAP PO SCH (08:31)
[2016-08-01] MEDS: SODIUM CHLORIDE 0.9% FLUSH 10 ML FLUSH IV FLUSH SCH ×2 (08:32→20:18)
[2016-08-01] MEDS: PANTOPRAZOLE SODIUM 40 MG VIAL IV PUSH SCH ×2 (08:32→20:18)
[2016-08-01] MEDS: ACETAMINOPHEN/HYDROcodone 325 MG/5 MG TAB PO PRN ×3 (08:32→22:20)
[2016-08-01] MEDS ORDERED: APOAEQUORIN 10 MG PO SCH (09:00)
[2016-08-01] MEDS: guaiFENesin E.R. 600 MG TAB PO SCH ×2 (14:22→20:18)
--- NOTE | 2016-08-01 14:55 | RADRPT ---
EXAM DATE/TIME: 08/01/2016 13:59 [facility] COMPARISON: CHEST PA & LAT, June 21, 2015, 9:30. INDICATIONS : Chest pain, pneumonia MEDICAL HISTORY : atrial fibrillation SURGICAL HISTORY : None. ENCOUNTER: Initial ACUITY: 1 day PAIN SCORE: 7/10 LOCATION: Bilateral chest FINDINGS: PA and lateral views of the chest demonstrate the lungs to be symmetrically aerated without evidence of mass, infiltrate or effusion. The cardiomediastinal contours are unremarkable. Osseous structure s are intact. CONCLUSION: No acute disease. Earl Galan Jr., MD on August 01, 2016 at 14:53 Board Certified Radiologist. This report was verified electronically.
[2016-08-01] MEDS: RESP: ALBUTEROL 2.5 MG/IPRATROPIUM 0.5 MG NEB (SCH) NEB ×2 (15:34→19:59)
[2016-08-01] MEDS: TAMSULOSIN HCL 0.4 MG CAP PO SCH (20:18)
--- NOTE | 2016-08-01 21:57 | EKG ---
Date Performed: 07/31/2016 Time Performed: 15:02:05 PTAGE: 85 years EKG: Sinus rhythm Since previous tracing, no significant change noted NORMAL ECG PREVIOUS TRACING : 06/17/2015 21.43 DOCTOR: Madhuri Durán Interpretating Date/Time 08/01/2016 21:56:45
[2016-08-02] VITALS: BP 110/46; PULSE 61; RESP 20; TEMP 98.4; O2SAT 98
[2016-08-02] MEDS: SODIUM CHLOR 0.9% 1000 ML INJ 1,000 ML IV SCH ×3 (01:56→20:16)
[2016-08-02] MEDS: RESP: ALBUTEROL 2.5 MG/IPRATROPIUM 0.5 MG NEB (SCH) NEB ×4 (04:17→22:06)
[2016-08-02 08:00] VITALS: BP 116/57; PULSE 72; RESP 17; TEMP 97.9; O2SAT 97
--- NOTE | 2016-08-02 08:27 | HHI.PR ---
Subjective Remarks This is an 85-year-old male with PMH of HTN, A-fib and Prostate CA who presented to the ER w/ complaints of acute onset of epigastric pain. States symptoms started earlier this morning, associated nausea but no vomiting. Denies fever, chills or diarrhea. On arrival, BP 198/74, HR 65, O2 sat 96% on RA, Afebrile. CBC unremarkable. Chemistry essentially unremarkable. Lipase 1103. UA with hematuria. 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 BUN/Creatinine normal. Urine output normal. Following w/ Dr. Reilly as outpatient, recent diagnosis of Prostate CA 2 months ago, scheduled for MRI at [place] for Staging the test was recommended to be performed here in this facility but as per Radiology department we are not able to perform this kind of test will need to be performed in his facility, seen in his bedroom and improving his abdominal pain, improving his Lipase to 280, has cough will start Bronchodilator, Mucolytic and Incentive spirometry encourage activity, 08/02 Seen in his bedroom as per patient started having some Nausea, no vomit, increased abdominal discomfort no clear reason for his Acute pancreatitis, worsening today Lipase level, will consult GI specialist. No diarrhea. Objective Vital Signs Date Time Temp Pulse Resp B/P Pulse Ox O2 Delivery O2 Flow Rate FiO2 08/02/16 00:00 98.4 61 20 110/46 98 08/01/16 20:00 97.8 74 20 121/50 97 08/01/16 19:17 97.9 75 20 105/59 98 08/01/16 15:16 97.8 56 20 94/53 97 08/01/16 11:21 97.7 56 16 105/57 92 I/O 08/01/16 08/01/16 08/01/16 08/02/16 08/02/16 08/02/16 07:00 15:00 23:00 07:00 15:00 23:00 Intake Total 39490 ml 0 ml Output Total 375 ml 1700 ml 300 ml Balance -375 ml 9050 ml -300 ml Intake Oral 750 ml 0 ml IV Total 47745 ml Output Urine Total 375 ml 1700 ml 300 ml # Voids 1 Result Diagram: 08/01/1651608/01/16516 Imaging Last Impressions Chest X-Ray 08/01/16 0000 Signed Impressions: Service Date/Time: Monday, August 01, 2016 13:59 - CONCLUSION: No acute disease. Earl Galan Jr., MD Abdomen/Pelvis CT 07/31/16 1441 Signed Impressions: Service Date/Time: Sunday, July 31, 2016 17:59 - CONCLUSION: 1. Moderate hydronephrosis on the left to the level of the proximal ureter suggestive of congenital UPJ obstruction or possible proximal ureteral stricture. No calcified obstructing ureteral calculus is noted. 2. Bilateral renal cysts. 3. Degenerative changes throughout the thoracolumbar spine. Yusuf Sneed MD Procedures No procedures performed. Other Results Laboratory Tests Test 07/31/16 08/01/16 08/02/16 14:50 05:17 04:35 Urine Color LIGHT-YELLOW Urine Turbidity CLEAR Urine pH 8.0 Urine Specific [place] 1.007 Urine Protein NEG mg/dL Urine Glucose (UA) NEG mg/dL Urine Ketones NEG mg/dL Urine Occult Blood SMALL Urine Nitrite NEG Urine Bilirubin NEG Urine Urobilinogen LESS THAN 2.0 MG/DL Urine Leukocyte Esterase NEG Urine RBC 47 /hpf Urine WBC 1 /hpf Urine Squamous Epithelial <1 /hpf Cells Microscopic Urinalysis Comment CULT NOT INDICATED White Blood Count 6.1 TH/MM3 Red Blood Count 3.91 MIL/MM3 Hemoglobin 11.8 GM/DL Hematocrit 33.7 % Mean Corpuscular Volume 86.2 FL Mean Corpuscular Hemoglobin 30.2 PG Mean Corpuscular Hemoglobin 35.0 % Concent Red Cell Distribution Width 14.9 % Platelet Count 146 TH/MM3 Mean Platelet Volume 8.9 FL Neutrophils (%) (Auto) 48.8 % Lymphocytes (%) (Auto) 36.1 % Monocytes (%) (Auto) 12.6 % Eosinophils (%) (Auto) 1.8 % Basophils (%) (Auto) 0.7 % Neutrophils # (Auto) 3.0 TH/MM3 Lymphocytes # (Auto) 2.2 TH/MM3 Monocytes # (Auto) 0.8 TH/MM3 Eosinophils # (Auto) 0.1 TH/MM3 Basophils # (Auto) 0.0 TH/MM3 CBC Comment DIFF FINAL Differential Comment Sodium Level 141 MEQ/L Potassium Level 4.3 MEQ/L Chloride Level 104 MEQ/L Carbon Dioxide Level 32.2 MEQ/L Anion Gap 5 MEQ/L Blood Urea Nitrogen 14 MG/DL Creatinine 0.77 MG/DL Estimat Glomerular Filtration 96 ML/MIN Rate Random Glucose 94 MG/DL Calcium Level 8.4 MG/DL Total Bilirubin 0.3 MG/DL Aspartate Amino Transf 66 U/L (AST/SGOT) Alanine Aminotransferase 65 U/L (ALT/SGPT) Alkaline Phosphatase 67 U/L Total Protein 5.6 GM/DL Albumin 2.9 GM/DL Lipase 304 U/L Objective Remarks GENERAL: No acute distress. HEENT: PERRLA, EOMI. No scleral icterus or conjunctival pallor. No lid lag or facial droop. CARDIOVASCULAR: Regular rate and rhythm. No obvious murmurs to auscultation. No chest tenderness to palpation. RESPIRATORY: No obvious rhonchi or wheezing. Clear to auscultation. Breath sounds equal bilaterally. GASTROINTESTINAL: Abdomen soft, mild epigastric tenderness to palpation, nondistended. BS normal. MUSCULOSKELETAL: Extremities without clubbing, cyanosis, or edema. No obvious deformities. NEUROLOGICAL: Awake, alert and oriented x4. No focal neurologic deficits. Moving both upper and lower extremities spontaneously. Medications and IVs Current Medications Medications (Trade) Dose Ordered Sig/Lakshmi Route Start Time Stop Time Status Last Admin (Neurontin) 300 mg DAILY PO 08/01/16 09:00 08/01/16 08:31 (Flomax) 0.4 mg HS PO 07/31/16 21:00 08/01/16 20:18 Pantoprazole Sodium 40 mg 40 mg Q12H IV PUSH 07/31/16 21:00 08/01/16 20:18 (NS 1000 ml Inj) 1,000 ml @ 100 mls/hr Q10H IV 07/31/16 19:56 08/01/16 15:56 (NS Flush) 2 ml UNSCH PRN IV FLUSH 07/31/16 20:00 (NS Flush) 2 ml BID IV FLUSH 07/31/16 21:00 08/01/16 20:18 (Zofran Inj) 4 mg Q6H PRN IVP 07/31/16 20:00 (Dulcolax Supp) 10 mg DAILY PRN [place] 07/31/16 20:00 (Tylenol) 650 mg Q6H PRN PO 07/31/16 20:00 ([place] 5-325 Mg) 1 tab Q4H PRN PO 07/31/16 20:00 08/01/16 22:20 (Mucinex Er) 600 mg BID PO 08/01/16 13:45 08/01/16 20:18 A/P Problem List: (1) Pancreatitis ICD Code: K85.90 (2) HTN (hypertension) ICD Code: I10 (3) Prostate CA ICD Code: C61 Assessment and Plan 1. Acute Pancreatitis: acute onset of epigastric pain w/ associated nausea. Lipase 1103. CT Abd/Pelvis w/ no abnormalities involving the pancreas. Protonix IV, IVF, Lipase was improving yesterday and was asymptomatic, was left for another 23 hours observation, today his Lipase level increased and is having again abdominal pain and Nausea. No vomit or diarrhea. 2. Hydronephrosis: CT Abd/Pelvis w/ moderate left hydronephrosis suggestive of congenital UPJ obstruction or ureteral stricture no stone noted, images reviewed by me. No recent images for comparison. BUN/Creatinine normal. Urine output normal. 3. Prostate CA: recent diagnosis 2months ago per patient, following w/ Dr. Reilly. Scheduled for MRI today at [place] for Prostate Staging. Will order MRI here as pt has already gone through prep. Called Dr. Reilly's service in order to get details on specific MRI requested, however was told Dr. Reilly has no privileges and we would need to call Urology conference interpreter. Admitted hospitalist Spoke w/ Dr. Beltran, recommended I contact [facility] for specific order. Called [facility], they were closed at that time, but Reviewed order from [facility] via ER system w / assistance of ER doc, order is for MRI w/ and w/o contrast. was not possible to perform this test here. will need to be done in his facility as outpatient. 4. Accelerated Hypertension controlled today was 190s on admission. 5. Cough he has multiple pulmonary issues in the past and he is coughing will start Bronchodilator, Mucolytic, Incentive spirometry, CXR taken no pathology found. Consult GI specialist due to worsening symptoms and no clear reason for Acute Pancreatitis. DVT Prophylaxis: SCD/Teds. Social work for d/c planning as needed. Discharge Planning Expected later today or in am tomorrow. Problem Qualifiers (1) Pancreatitis: Qualified Code: K85.90 - Acute pancreatitis, unspecified complication status, unspecified pancreatitis type Michael Esparza MD Aug 02, 2016 08:27
[2016-08-02] MEDS: PANTOPRAZOLE SODIUM 40 MG VIAL IV PUSH SCH ×2 (08:42→20:15)
[2016-08-02] MEDS: GABAPENTIN 300 MG CAP PO SCH (08:42)
[2016-08-02] MEDS: guaiFENesin E.R. 600 MG TAB PO SCH ×2 (08:42→20:15)
[2016-08-02] MEDS: SODIUM CHLORIDE 0.9% FLUSH 10 ML FLUSH IV FLUSH SCH ×2 (08:43→20:16)
[2016-08-02 12:00] VITALS: BP 96/52; PULSE 71; RESP 17; TEMP 96.8; O2SAT 98
[2016-08-02 16:00] VITALS: BP 119/59; PULSE 88; RESP 18; TEMP 97.3; O2SAT 97
--- NOTE | 2016-08-02 19:33 | MB ---
cc: IRMA DEJESUS M.D., ROXY DR. PERKOWSKI, MERRELL, MATTHEW M. M.D. DATE OF CONSULTATION 08/02/2016 DATE OF 1930 [address] Irma Dejesus. HISTORY The patient is an 85-year-old white male I was asked to see for further evaluation and management of abdominal pain. He tells me 2 days ago he developed a sudden onset of epigastric pain, very sharp in nature, lasting hours. No associated nausea or vomiting. No radiation to the back or chest. No fever or chills. No prior episodes similar to this. He received some pain medication in the emergency room and he has been comfortable ever since, though he has had minimal discomfort today. He tells me oral intake does not necessarily worsen the discomfort. He has had no early satiety. He tells me he has had some dysphagia however over the past year for solids and liquids lasting up to an hour at a time. He has never had to forcefully regurgitate food. Hesitation occurs in the proximal to mid the retrosternal region. He had undergone panendoscopy this past January and an antral ulcer was found. He had been taking Prilosec routinely but now takes it very intermittently. He does take Aleve essentially daily. PAST MEDICAL HISTORY 1. Hypertension. 2. Atrial fibrillation. 3. Prostate cancer. PAST SURGICAL HISTORY 1. Appendectomy. 2. Cataract surgery. 3. Tonsillectomy. 4. Cholecystectomy. 5. Lumbar laminectomy. MEDICATIONS ON ADMISSION Do not see them listed here. I will get to that in a minute. ALLERGIES [place]AIN. SOCIAL HISTORY Tobacco use none. Alcohol use none. FAMILY HISTORY Breast cancer and heart disease. REVIEW OF SYSTEMS He has had no headaches or vision difficulties. He has had some hematuria. He has had no respiratory difficulties except for mild chronic cough. No palpitations recently. No jaundice. No history of thyroid disease or liver disease or pancreatic disease or adrenal dysfunction. No recent rashes or joint pains. MEDICATIONS Currently in the hospital include: 1. DuoNeb. 2. Mucinex. 3. Neurontin. 4. Flomax. 5. Protonix 40 mg IV q.12 h. 6. Zofran p.r.n. 7. Dulcolax. 8. Tylenol p.r.n. 9. [place]. PHYSICAL EXAMINATION VITAL SIGNS: His weight is 60 kg. Temperature 97.3, pulse 88, blood pressure 119/59. GENERAL: He is alert. He is oriented x3. He is anicteric. He is in good spirits. He is in no distress. HEENT: Extraocular motions are intact. LYMPHATICS: I appreciate no submandibular, cervical, supraclavicular, axillary or epitrochlear adenopathy. LUNGS: Clear to auscultation. CARDIOVASCULAR: Heart exam regular rate and rhythm at this time with an occasional extrasystole. No appreciable murmur or gallop. ABDOMEN: Exam good bowel sounds with no appreciable bruit. The abdomen is soft with focal epigastric tenderness. No masses or hepatosplenomegaly are noted. EXTREMITIES: No pedal edema, Dupuytren's contractures or palmar erythema. RECTAL: Exam reveals good sphincter tone. No masses. No tenderness. A very smooth prostate and small pieces of formed brown stool that test hemoccult negative. LABORATORY DATA ON ADMISSION July 31, 2016 sodium 141, potassium 4.1, BUN 16, creatinine 0.87, AST 45, ALT 48. Alkaline phosphatase and bilirubin normal. Lipase 1103, albumin 3.5. Yesterday BUN 14, creatinine 0.77, bilirubin 0.3, AST 66, ALT 65, alkaline phosphatase normal. Lipase down to 280. This morning at 4:30 lipase was slightly more elevated at 304. White blood cell count today 6.1, hemoglobin 11.8, MCV 86.2, platelets 146. IMAGING CT scan of the abdomen and pelvis (I reviewed this with Dr. Whitley in radiology) revealed some thickening of the antrum and pylorus. The fat plane between the stomach and pancreas is well demarcated with no evidence of a penetrating ulcer. Moderate hydronephrosis was noted on the left to the level of the proximal ureter. No obvious stones were noted. Bilateral renal cysts are noted. Degenerative changes seen throughout the thoracolumbar spine. IMPRESSION Epigastric pain sudden in onset with an elevated lipase with minimal elevation of the AST. The biliary tree is not dilated. There is no obvious calcification evident in the biliary tree to suggest stones or obvious microlithiasis. He has been taking Aleve routinely with no acid suppressant on board. We discussed the possibility of another ulcer as he has had one this past January. On the radiologic imaging the pancreatic duct is mildly dilated only in the head and vaguely, slightly prominent in the body and tail. This is not unusual for the mild dilation of the body and the tail in patients of this age. No filling defects were evident in the pancreatic duct or bile duct. After discussion we decided to proceed with panendoscopy and esophageal dilation (because of the dysphagia for solids and liquids with this suggestion of an esophageal motor disorder as no strictures or rings were noted at the time of his endoscopy this past January.) I reviewed the procedure with him including potential risks of medication reaction, bleeding, perforation and a small chance of missing a lesion. If no abnormalities are found endoscopic ultrasound would be considered to evaluate why the pancreatic duct and the head of the pancreas is dilated. There is no obvious neoplasm or stone evident based on CT scanning. The MRI / MRCP may not be of much more help. Endoscopic ultrasound would be the most sensitive test to evaluate this region. MD BEAN Varner/ASUNCION /5:30 PM /7:10 PM
[2016-08-02 20:00] VITALS: BP 101/58; PULSE 92; RESP 20; TEMP 98.1; O2SAT 96
[2016-08-02 20:14] LABS: BICARBONATE 28.8 MEQ/L (21.0-32.0); POTASSIUM 4.6 MEQ/L (3.5-5.1)
[2016-08-02] MEDS: TAMSULOSIN HCL 0.4 MG CAP PO SCH (20:15)
[2016-08-03] VITALS: BP 110/62; PULSE 89; RESP 20; TEMP 97.6; O2SAT 95
[2016-08-03] MEDS ORDERED: LACTATED RINGER'S 1000 ML IV PRN (00:15)
[2016-08-03 04:00] VITALS: BP 112/74; PULSE 84; RESP 20; TEMP 97.2; O2SAT 95
[2016-08-03] MEDS: RESP: ALBUTEROL 2.5 MG/IPRATROPIUM 0.5 MG NEB (SCH) NEB ×2 (04:05→10:00)
[2016-08-03 06:15] VITALS: BP 112/74; PULSE 84; RESP 20; TEMP 97.2; O2SAT 95
[2016-08-03] MEDS ORDERED: PROPOFOL 200 MG/20 ML AMP IV ONE (07:04)
--- NOTE | 2016-08-03 07:49 | HHI.PR ---
Subjective Remarks This is an 85-year-old male with PMH of HTN, A-fib and Prostate CA who presented to the ER w/ complaints of acute onset of epigastric pain. States symptoms started earlier this morning, associated nausea but no vomiting. Denies fever, chills or diarrhea. On arrival, BP 198/74, HR 65, O2 sat 96% on RA, Afebrile. CBC unremarkable. Chemistry essentially unremarkable. Lipase 1103. UA with hematuria. 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 BUN/Creatinine normal. Urine output normal. Following w/ Dr. Reilly as outpatient, recent diagnosis of Prostate CA 2 months ago, scheduled for MRI at [place] for Staging the test was recommended to be performed here in this facility but as per Radiology department we are not able to perform this kind of test will need to be performed in his facility, seen in his bedroom and improving his abdominal pain, improving his Lipase to 280, has cough will start Bronchodilator, Mucolytic and Incentive spirometry encourage activity, 08/02 Seen in his bedroom as per patient started having some Nausea, no vomit, increased abdominal discomfort no clear reason for his Acute pancreatitis, worsening today Lipase level, will consult GI specialist. No diarrhea. 08/03 Status post GI specialist consult Doctor Sravan Dejesus Appreciated Specialist Assistance noted the patient was taking Naproxen with no acid suppressant, possibility of Ulcer, recommended EGD. do not recommended to get MRCP. status post EGD esophagus appeared normal, with no stricture or ring, suggesting his dysphagia is due to an esophageal motor disorder, a large gastric phytobezoar suggests severe gastroparesis as the pylorus was not particularly stenotic, the duodenal bulb and sweep appeared normal, okay to dischargee home and full liquid diet, pineapple juice 8 ounces three times a day and bethanechol avoid cold fluid foods and drink warm liquid specially before and with pills and meals follow up with doctor Melendez in two weeks. Objective Vital Signs Date Time Temp Pulse Resp B/P Pulse Ox O2 Delivery O2 Flow Rate FiO2 08/03/16 06:15 97.2 84 20 112/74 95 08/03/16 04:00 97.2 84 20 112/74 95 08/03/16 00:00 97.6 89 20 110/62 95 08/02/16 20:00 98.1 92 20 101/58 96 08/02/16 16:00 97.3 88 18 119/59 97 08/02/16 12:00 96.8 71 17 96/52 98 08/02/16 08:00 97.9 72 17 116/57 97 I/O 08/02/16 08/02/16 08/02/16 08/03/16 08/03/16 08/03/16 07:00 15:00 23:00 07:00 15:00 23:00 Intake Total 0 ml 120 ml 480 ml 0 ml Output Total 300 ml 400 ml 450 ml 350 ml Balance -300 ml -280 ml 30 ml -350 ml Intake Oral 0 ml 120 ml 480 ml 0 ml IV Total 0 ml Output Urine Total 300 ml 400 ml 450 ml 350 ml # Bowel Movements 0 0 0 Result Diagram: 08/01/16 0517 08/02/16 0435 Imaging Last Impressions Chest X-Ray 08/01/16 0000 Signed Impressions: Service Date/Time: Monday, August 01, 2016 13:59 - CONCLUSION: No acute disease. Earl Galan Jr., MD Abdomen/Pelvis CT 07/31/16 1441 Signed Impressions: Service Date/Time: Sunday, July 31, 2016 17:59 - CONCLUSION: 1. Moderate hydronephrosis on the left to the level of the proximal ureter suggestive of congenital UPJ obstruction or possible proximal ureteral stricture. No calcified obstructing ureteral calculus is noted. 2. Bilateral renal cysts. 3. Degenerative changes throughout the thoracolumbar spine. Yusuf Sneed MD Procedures No procedures performed. Other Results Laboratory Tests Test 07/31/16 08/01/16 08/02/16 14:50 05:17 04:35 Urine Color LIGHT-YELLOW Urine Turbidity CLEAR Urine pH 8.0 Urine Specific [place] 1.007 Urine Protein NEG mg/dL Urine Glucose (UA) NEG mg/dL Urine Ketones NEG mg/dL Urine Occult Blood SMALL Urine Nitrite NEG Urine Bilirubin NEG Urine Urobilinogen LESS THAN 2.0 MG/DL Urine Leukocyte Esterase NEG Urine RBC 47 /hpf Urine WBC 1 /hpf Urine Squamous Epithelial <1 /hpf Cells Microscopic Urinalysis Comment CULT NOT INDICATED White Blood Count 6.1 TH/MM3 Red Blood Count 3.91 MIL/MM3 Hemoglobin 11.8 GM/DL Hematocrit 33.7 % Mean Corpuscular Volume 86.2 FL Mean Corpuscular Hemoglobin 30.2 PG Mean Corpuscular Hemoglobin 35.0 % Concent Red Cell Distribution Width 14.9 % Platelet Count 146 TH/MM3 Mean Platelet Volume 8.9 FL Neutrophils (%) (Auto) 48.8 % Lymphocytes (%) (Auto) 36.1 % Monocytes (%) (Auto) 12.6 % Eosinophils (%) (Auto) 1.8 % Basophils (%) (Auto) 0.7 % Neutrophils # (Auto) 3.0 TH/MM3 Lymphocytes # (Auto) 2.2 TH/MM3 Monocytes # (Auto) 0.8 TH/MM3 Eosinophils # (Auto) 0.1 TH/MM3 Basophils # (Auto) 0.0 TH/MM3 CBC Comment DIFF FINAL Differential Comment Total Bilirubin 0.3 MG/DL Aspartate Amino Transf 66 U/L (AST/SGOT) Alanine Aminotransferase 65 U/L (ALT/SGPT) Alkaline Phosphatase 67 U/L Total Protein 5.6 GM/DL Albumin 2.9 GM/DL Sodium Level 141 MEQ/L Potassium Level 4.6 MEQ/L Chloride Level 105 MEQ/L Carbon Dioxide Level 28.8 MEQ/L Anion Gap 7 MEQ/L Blood Urea Nitrogen 16 MG/DL Creatinine 0.91 MG/DL Estimat Glomerular Filtration 80 ML/MIN Rate Random Glucose 118 MG/DL Calcium Level 8.7 MG/DL Lipase 304 U/L Objective Remarks GENERAL: No acute distress. HEENT: PERRLA, EOMI. No scleral icterus or conjunctival pallor. No lid lag or facial droop. CARDIOVASCULAR: Regular rate and rhythm. No obvious murmurs to auscultation. No chest tenderness to palpation. RESPIRATORY: No obvious rhonchi or wheezing. Clear to auscultation. Breath sounds equal bilaterally. GASTROINTESTINAL: Abdomen soft, mild epigastric tenderness to palpation, nondistended. BS normal. MUSCULOSKELETAL: Extremities without clubbing, cyanosis, or edema. No obvious deformities. NEUROLOGICAL: Awake, alert and oriented x4. No focal neurologic deficits. Moving both upper and lower extremities spontaneously. Medications and IVs Current Medications Medications (Trade) Dose Ordered Sig/Lakshmi Route Start Time Stop Time Status Last Admin (Neurontin) 300 mg DAILY PO 08/01/16 09:00 08/02/16 08:42 (Flomax) 0.4 mg HS PO 07/31/16 21:00 08/02/16 20:15 Pantoprazole Sodium 40 mg 40 mg Q12H IV PUSH 07/31/16 21:00 08/02/16 20:15 (NS 1000 ml Inj) 1,000 ml @ 100 mls/hr Q10H IV 07/31/16 19:56 08/01/16 15:56 (NS Flush) 2 ml UNSCH PRN IV FLUSH 07/31/16 20:00 (NS Flush) 2 ml BID IV FLUSH 07/31/16 21:00 08/02/16 20:16 (Zofran Inj) 4 mg Q6H PRN IVP 07/31/16 20:00 (Dulcolax Supp) 10 mg DAILY PRN NE 07/31/16 20:00 (Tylenol) 650 mg Q6H PRN PO 07/31/16 20:00 ([place] 5-325 Mg) 1 tab Q4H PRN PO 07/31/16 20:00 08/01/16 22:20 Guaifenesin 600 mg 600 mg BID PO 08/01/16 13:45 08/02/16 20:15 (Lr 1000 ml Inj) 1,000 ml @ 0 mls/hr Q0M PRN IV 08/03/16 00:15 08/06/16 00:14 A/P Problem List: (1) Pancreatitis ICD Code: K85.90 (2) HTN (hypertension) ICD Code: I10 (3) Prostate CA ICD Code: C61 Assessment and Plan 1. Acute Pancreatitis: acute onset of epigastric pain w/ associated nausea. Lipase 1103. CT Abd/Pelvis w/ no abnormalities involving the pancreas. Protonix IV, IVF, Lipase was improving yesterday and was asymptomatic, was left for another 23 hours observation, today his Lipase level increased and is having again abdominal pain and Nausea. No vomit or diarrhea. Status post GI specialist consult Doctor Sravan Dejesus Appreciated Specialist Assistance noted the patient was taking Naproxen with no acid suppressant, possibility of Ulcer, recommended EGD. do not recommended to get MRCP. status post EGD esophagus appeared normal, with no stricture or ring, suggesting his dysphagia is due to an esophageal motor disorder, a large gastric phytobezoar suggests severe gastroparesis as the pylorus was not particularly stenotic, the duodenal bulb and sweep appeared normal , okay to dischargee home and full liquid diet, pineapple juice 8 ounces three times a day and bethanechol avoid cold fluid foods and drink warm liquid specially before and with pills and meals follow up with doctor Melendez in two weeks. 2. Hydronephrosis: CT Abd/Pelvis w/ moderate left hydronephrosis suggestive of congenital UPJ obstruction or ureteral stricture no stone noted, images reviewed by me. No recent images for comparison. BUN/Creatinine normal. Urine output normal. 3. Prostate CA: recent diagnosis 2months ago per patient, following w/ Dr. Reilly. Scheduled for MRI today at [place] for Prostate Staging. Will order MRI here as pt has already gone through prep. Called Dr. Reilly's service in order to get details on specific MRI requested, however was told Dr. Reilly has no privileges and we would need to call Urology production administrative assistant. Admitted hospitalist Spoke w/ Dr. Beltran, recommended I contact [place] for specific order. Called [place], they were closed at that time, but Reviewed order from [facility] via ER system w / assistance of ER doc, order is for MRI w/ and w/o contrast. was not possible to perform this test here. will need to be done in his facility as outpatient. 4. Accelerated Hypertension controlled today was 190s on admission. 5. Cough he has multiple pulmonary issues in the past and he is coughing will start Bronchodilator, Mucolytic, Incentive spirometry, CXR taken no pathology found. Consult GI specialist due to worsening symptoms and no clear reason for Acute Pancreatitis. DVT Prophylaxis: SCD/Teds. Social work for d/c planning as needed. Discharge Planning Okay to discharge from GI specialist standpoint. Problem Qualifiers (1) Pancreatitis: Qualified Code: K85.90 - Acute pancreatitis, unspecified complication status, unspecified pancreatitis type Michael Esparza MD Aug 03, 2016 07:49
[2016-08-03] MEDS: SODIUM CHLOR 0.9% 1000 ML INJ 1,000 ML IV SCH (07:56)
[2016-08-03 08:00] VITALS: BP 138/65; PULSE 74; RESP 18; TEMP 97.3; O2SAT 97
[2016-08-03] MEDS: SODIUM CHLORIDE 0.9% FLUSH 10 ML FLUSH IV FLUSH SCH (09:00)
[2016-08-03] MEDS: PANTOPRAZOLE SODIUM 40 MG VIAL IV PUSH SCH (10:10)
[2016-08-03] MEDS: GABAPENTIN 300 MG CAP PO SCH (10:10)
[2016-08-03] MEDS: guaiFENesin E.R. 600 MG TAB PO SCH (10:10)
[2016-08-03] MEDS: ACETAMINOPHEN/HYDROcodone 325 MG/5 MG TAB PO PRN (10:10)
[2016-08-03] MEDS ORDERED: CHERSYP2 PO (10:54)
--- NOTE | 2016-08-03 10:58 | HHI.DS ---
Discharge Summary Admission Date Jul 31, 2016 at 19:53 Discharge Date: Aug 03, 2016 Admitting Diagnosis Hydronephrosis, pancreatitis (1) Pancreatitis ICD Code: K85.90 (2) Hydronephrosis ICD Code: N13.30 Diagnosis: Secondary (3) Prostate CA ICD Code: C61 Diagnosis: Secondary (4) Gastroparesis ICD Code: K31.84 Diagnosis: Principal (5) Accelerated hypertension ICD Code: I10 Diagnosis: Principal Procedures EGD Brief History - From Admission This is an 85-year-old male with PMH of HTN, A-fib and Prostate CA who presented to the ER w/ complaints of acute onset of epigastric pain. States symptoms started earlier this morning, associated nausea but no vomiting. Denies fever, chills or diarrhea. On arrival, BP 198/74, HR 65, O2 sat 96% on RA, Afebrile. CBC unremarkable. Chemistry essentially unremarkable. Lipase 1103. UA with hematuria. 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 BUN/Creatinine normal. Urine output normal. Following w/ Dr. Reilly as outpatient, recent diagnosis of Prostate CA 2 months ago, scheduled for MRI at [place] tomorrow for staging. CBC/BMP: 08/01/16 0517 08/02/16 0435 Significant Findings Laboratory Tests Test 07/31/16 08/01/16 08/02/16 14:50 05:17 04:35 Red Blood Count 4.27 MIL/MM3 3.91 MIL/MM3 (4.50-5.90) (4.50-5.90) Hemoglobin 12.6 GM/DL 11.8 GM/DL (13.0-17.0) (13.0-17.0) Hematocrit 37.3 % 33.7 % (39.0-51.0) (39.0-51.0) Monocytes (%) (Auto) 9.0 % (0.0-8.0) 12.6 % (0.0-8.0) Urine Occult Blood SMALL (NEG) Urine RBC 47 /hpf (0-3) Carbon Dioxide Level 32.5 MEQ/L 32.2 MEQ/L (21.0-32.0) (21.0-32.0) Estimat Glomerular Filtration 84 ML/MIN (>89) 80 ML/MIN (>89) Rate Aspartate Amino Transf 45 U/L (15-37) 66 U/L (15-37) (AST/SGOT) Lipase 1103 U/L (73-393) Platelet Count 146 TH/MM3 (150-450) Calcium Level 8.4 MG/DL (8.5-10.1) Total Protein 5.6 GM/DL (6.4-8.2) Albumin 2.9 GM/DL (3.4-5.0) Random Glucose 118 MG/DL (74-106) Imaging Last Impressions Chest X-Ray 08/01/16 0000 Signed Impressions: Service Date/Time: Monday, August 01, 2016 13:59 - CONCLUSION: No acute disease. Earl Galan Jr., MD Abdomen/Pelvis CT 07/31/16 1441 Signed Impressions: Service Date/Time: Sunday, July 31, 2016 17:59 - CONCLUSION: 1. Moderate hydronephrosis on the left to the level of the proximal ureter suggestive of congenital UPJ obstruction or possible proximal ureteral stricture. No calcified obstructing ureteral calculus is noted. 2. Bilateral renal cysts. 3. Degenerative changes throughout the thoracolumbar spine. Yusuf Sneed MD PE at Discharge GENERAL: No acute distress. HEENT: PERRLA, EOMI. No scleral icterus or conjunctival pallor. No lid lag or facial droop. CARDIOVASCULAR: Regular rate and rhythm. No obvious murmurs to auscultation. No chest tenderness to palpation. RESPIRATORY: No obvious rhonchi or wheezing. Clear to auscultation. Breath sounds equal bilaterally. GASTROINTESTINAL: Abdomen soft, mild epigastric tenderness to palpation, nondistended. BS normal. MUSCULOSKELETAL: Extremities without clubbing, cyanosis, or edema. No obvious deformities. NEUROLOGICAL: Awake, alert and oriented x4. No focal neurologic deficits. Moving both upper and lower extremities spontaneously. Hospital Course This is an 85-year-old male with PMH of HTN, A-fib and Prostate CA who presented to the ER w/ complaints of acute onset of epigastric pain. States symptoms started earlier this morning, associated nausea but no vomiting. Denies fever, chills or diarrhea. On arrival, BP 198/74, HR 65, O2 sat 96% on RA, Afebrile. CBC unremarkable. Chemistry essentially unremarkable. Lipase 1103. UA with hematuria. 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 BUN/Creatinine normal. Urine output normal. Following w/ Dr. Reilly as outpatient, recent diagnosis of Prostate CA 2 months ago, scheduled for MRI at [place] for Staging the test was recommended to be performed here in this facility but as per Radiology department we are not able to perform this kind of test will need to be performed in his facility, seen in his bedroom and improving his abdominal pain, improving his Lipase to 280, has cough will start Bronchodilator, Mucolytic and Incentive spirometry encourage activity, 08/02 Seen in his bedroom as per patient started having some Nausea, no vomit, increased abdominal discomfort no clear reason for his Acute pancreatitis, worsening today Lipase level, will consult GI specialist. No diarrhea. 08/03 Status post GI specialist consult Doctor Sravan Dejesus Appreciated Specialist Assistance noted the patient was taking Naproxen with no acid suppressant, possibility of Ulcer, recommended EGD. do not recommended to get MRCP. status post EGD esophagus appeared normal, with no stricture or ring, suggesting his dysphagia is due to an esophageal motor disorder, a large gastric phytobezoar suggests severe gastroparesis as the pylorus was not particularly stenotic, the duodenal bulb and sweep appeared normal, okay to dischargee home and full liquid diet, pineapple juice 8 ounces three times a day and bethanechol avoid cold fluid foods and drink warm liquid specially before and with pills and meals follow up with doctor Melendez in two weeks. Assessment and Plan 1. Acute Pancreatitis: acute onset of epigastric pain w/ associated nausea. Lipase 1103. CT Abd/Pelvis w/ no abnormalities involving the pancreas. Protonix IV, IVF, Lipase was improving yesterday and was asymptomatic, was left for another 23 hours observation, today his Lipase level increased and is having again abdominal pain and Nausea. No vomit or diarrhea. Status post GI specialist consult Doctor Sravan Dejesus Appreciated Specialist Assistance noted the patient was taking Naproxen with no acid suppressant, possibility of Ulcer, recommended EGD. do not recommended to get MRCP. status post EGD esophagus appeared normal, with no stricture or ring, suggesting his dysphagia is due to an esophageal motor disorder, a large gastric phytobezoar suggests severe gastroparesis as the pylorus was not particularly stenotic, the duodenal bulb and sweep appeared normal , okay to dischargee home and full liquid diet, pineapple juice 8 ounces three times a day and bethanechol avoid cold fluid foods and drink warm liquid specially before and with pills and meals follow up with doctor Melendez in two weeks. 2. Hydronephrosis: CT Abd/Pelvis w/ moderate left hydronephrosis suggestive of congenital UPJ obstruction or ureteral stricture no stone noted, images reviewed by me. No recent images for comparison. BUN/Creatinine normal. Urine output normal. 3. Prostate CA: recent diagnosis 2months ago per patient, following w/ Dr. Reilly. Scheduled for MRI today at [place] for Prostate Staging. Will order MRI here as pt has already gone through prep. Called Dr. Reilly's service in order to get details on specific MRI requested, however was told Dr. Reilly has no privileges and we would need to call Urology car conditioner. Admitted hospitalist Spoke w/ Dr. Beltran, recommended I contact [facility] for specific order. Called [facility], they were closed at that time, but Reviewed order from [facility] via ER system w / assistance of ER doc, order is for MRI w/ and w/o contrast. was not possible to perform this test here. will need to be done in his facility as outpatient. 4. Accelerated Hypertension controlled today was 190s on admission. 5. Cough he has multiple pulmonary issues in the past and he is coughing will start Bronchodilator, Mucolytic, Incentive spirometry, CXR taken no pathology found. Consult GI specialist due to worsening symptoms and no clear reason for Acute Pancreatitis. DVT Prophylaxis: SCD/Teds. Social work for d/c planning as needed. Discharge Planning Okay to discharge from GI specialist standpoint. Pt Condition on Discharge: Good Discharge Disposition: Discharge Home Discharge Time: > 30 minutes Discharge Instructions DIET: Follow Instructions for: Full Liquid Diet Additional Diet Instructions: Read recommendations given by GI specialist. Activities you can perform: Regular-No Restrictions Michael Esparza MD Aug 03, 2016 10:58
[2016-08-03 12:00] VITALS: BP 126/81; PULSE 82; RESP 18; TEMP 96.1; O2SAT 94
--- NOTE | 2016-08-03 13:28 | EKG ---
Date Performed: 08/02/2016 Time Performed: 21:36:13 PTAGE: 85 years EKG: Sinus rhythm WITH FREQUENT SUPRAVENTRICULAR PREMATURE COMPLEXES ABNORMAL RHYTHM ECG PREVIOUS TRACING : 07/31/2016 15.02 Compared to prior tracing no significant change DOCTOR: Cornel Forde Interpretating Date/Time 08/03/2016 13:28:09
== END 2016-08-03 12:51 | disposition home or self-care (01) | DRG 439 ==
LOC: NEPA 12:03 → NEDA 19:53 → NEPFCDU 21:59 → N07A 08-01 21:19
PROVIDERS: ADMIT Internal Medicine; ATTEND Internal Medicine
PROC: 0DJ08ZZ Inspection of Upper Intestinal Tract, Via Natural or Artificial Opening Endoscopic (ICD-10-PCS; principal; 2016-08-03 06:35)
DX: K85.90 Acute pancreatitis without necrosis or infection, unspecified (principal); N13.1 Hydronephrosis with ureteral stricture, not elsewhere classified; T18.2XXA Foreign body in stomach, initial encounter; C61 Malignant neoplasm of prostate; I48.91 Unspecified atrial fibrillation; R13.10 Dysphagia, unspecified; K31.84 Gastroparesis; K21.9 Gastro-esophageal reflux disease without esophagitis; I10 Essential (primary) hypertension; X58.XXXA Exposure to other specified factors, initial encounter; R05 Cough; K22.8 Other specified diseases of esophagus
CPT/HCPCS: 71020; 74177; 80048; 80053; 81001; 83690; 85025; 93005; 94150; 94640; 94664; C9113; J1170; J2270; J3480; J7030; Q9967

== ENCOUNTER 2016-12-25 01:49 | Emergency (ER) | payer MEDICARE, BC ==
[~2016-12-25 01:49] MED LIST changes: -ATEN1TAB73 PO; +ATEN50TA PO; +BIOT50005 PO; -BIOTCAP PO; +CHERSYP2 PO; -ECHI167T PO; -GABA100C4 PO; +GABA300C5 PO; -GNP120TA3 PO; -OMEG1CAP53 PO; +OMEG5CAP PO; +OMEP40CA2 PO; -SAWPOW; +TAMS0.4C4 PO; +TYLE325T PO; +VITA10006 PO; +VITA200012 PO; -VITA400C28 PO; -VITA400C70 PO; +VITATAB11 PO; +[UNRECOGNIZED DRUG - CODE] PO
[2016-12-25 01:53] VITALS: BP 161/70; PULSE 65; RESP 16; TEMP 97.9; O2SAT 99
[2016-12-25] MEDS ORDERED: SODIUM CHLORIDE 0.9% FLUSH 10 ML FLUSH IV FLUSH PRN (02:45)
[2016-12-25 02:55] LABS: AUTOMATED NEUTROPHIL # 6.8 TH/MM3 (1.8-7.7); BASOPHIL % 0.5 % (0.0-2.0); EOSINOPHIL # 0.2 TH/MM3 (0-0.4); EOSINOPHIL % 1.7 % (0.0-4.0); HEMATOCRIT 37.8 % (39.0-51.0); HEMO FLAGS DIFF FINAL; LYMPH % 14.3 % (9.0-44.0); LYMPHOCYTE # 1.3 TH/MM3 (1.0-4.8); MEAN CELL VOLUME 90.1 FL (80.0-100.0); MEAN CORPUSCULAR HEMOGLOBIN 31.3 PG (27.0-34.0); MEAN CORPUSCULAR HGB CONC 34.8 % (32.0-36.0); MONO % 9.8 % (0.0-8.0); NEUT % 73.7 % (16.0-70.0); PLATELET COUNT 165 TH/MM3 (150-450); RED BLOOD COUNT 4.19 MIL/MM3 (4.50-5.90); RED CELL DISTRIBUTION WIDTH 13.9 % (11.6-17.2); WHITE BLOOD COUNT 9.2 TH/MM3 (4.0-11.0)
[2016-12-25 02:57] LABS: BLOOD, URINE SMALL (NEG); CALCIUM OXALATE CRYSTALS,URINE OCC /hpf; COMMENT (UR) CULT NOT INDICATED; CULTURE IF INDICATED CULT NOT INDICATED; GLUCOSE,URINE NEG (NEG); KETONE, URINE NEG (NEG); NITRITE,URINE NEG (NEG); PH, URINE 6.5 (5.0-8.5); URINE COLOR YELLOW (YELLW/STRAW)
[2016-12-25 03:08] LABS: PROTHROMBIN TIME - PATIENT 10.5 SEC (9.8-11.6)
[2016-12-25 03:09] LABS: ALT (GPT) 24 U/L (12-78); ANION GAP 6 MEQ/L (5-15); AST (GOT) 20 U/L (15-37); BICARBONATE 29.8 MEQ/L (21.0-32.0); BLOOD UREA NITROGEN 22 MG/DL (7-18); CHLORIDE 102 MEQ/L (98-107); GLOMERULAR FILTRATION RATE 51 ML/MIN (>89); POTASSIUM 4.3 MEQ/L (3.5-5.1); SODIUM (NA) 138 MEQ/L (136-145)
[2016-12-25 03:11] LABS: ALKALINE PHOSPHATASE 57 U/L (45-117); TOTAL BILIRUBIN ADULT 0.3 MG/DL (0.2-1.0)
[2016-12-25] MEDS ORDERED: ONDANSETRON HCL 4 MG/2 ML VIAL IV PUSH ONE (03:15)
[2016-12-25] MEDS ORDERED: MORPHINE SULFATE 4 MG/ML INJ IV PUSH ONE (03:15)
[2016-12-25] MEDS ORDERED: SODIUM CHLORID 0.9% 500 ML INJ 500 ML IV ONE (03:15)
--- NOTE | 2016-12-25 03:15 | PD ---
HPI Chief Complaint: Flank/Kidney Pain Time Seen by Provider: 02:53 Travel History International Travel<30 days: No Contact w/Intl Traveler<30days: No Traveled to known affect area: No History of Present Illness HPI Patient is an 86-year-old male who presents to emergency room with complaints of left sided flank pain. Patient reports that left-sided flank pain began yesterday, reports that the pain does radiate to his left groin. Patient reports that the pain has been persistent, reports that he has associated dysuria with urinary frequency with this. Denies any hematuria, denies any history of kidney stones in the past. Patient reports nausea with no vomiting. Patient denies any chest pain or shortness of breath. Patient with no other complaints at this time. PFSH Past Medical History Anemia: Yes Arthritis: Yes (HANDS KNEES) Atrial Fibrillation: Yes Autoimmune Disease: No Blood Disorders: No Anxiety: Yes Depression: Yes Heart Rhythm Problems: Yes (A-FIB) Cancer: No Cardiovascular Problems: Yes High Cholesterol: No Chemotherapy: No Chest Pain: No Congestive Heart Failure: No Cerebrovascular Accident: No Diabetes: No Diminished Hearing: No Endocrine: No Gastrointestinal Disorders: Yes (HX OF COLON POLYPS, DIVERTICULOSIS) GERD: Yes Genitourinary: No Headaches: Yes Hepatitis: No Hiatal Hernia: No Hypertension: Yes Immune Disorder: No Musculoskeletal: Yes Neurologic: No Psychiatric: Yes Reproductive: No Respiratory: No Immunizations Current: No Radiation Therapy: No Renal Failure: No Seizures: No Thyroid Disease: No Ulcer: Yes (GASTRIC) Tetanus Vaccination: > 5 Years Influenza Vaccination: Yes Past Surgical History Abdominal Surgery: Yes AICD: No Appendectomy: Yes Cardiac Surgery: No Cholecystectomy: Yes (2004) Ear Surgery: No Endocrine Surgery: No Eye Surgery: Yes (CATARACTS) Genitourinary Surgery: No Gynecologic Surgery: No Joint Replacement: No Neurologic Surgery: Yes (LUMBAR LAMINECTOMY) Oral Surgery: Yes (DENTURES, TONSILECTOMY) Pacemaker: No Thoracic Surgery: No Other Surgery: Yes Social History Alcohol Use: No Tobacco Use: No Substance Use: No Allergies-Medications (Allergen,Severity, Reaction): Coded Allergies: benzocaine (Unverified Allergy, Severe, ALLERGY TO NOVOCAIN, 12/25/16) PT STATES THAT HE HAS HAD NOVOCAINE NUMEROUS TIMES SINCE THIS EPISODE ALMOST 30 YRS AGO WITHOUT PROBLEM bupivacaine (Unverified Allergy, Severe, ALLERGY TO NOVOCAIN, 12/25/16) PT STATES THAT HE HAS HAD NOVOCAINE NUMEROUS TIMES SINCE THIS EPISODE ALMOST 30 YRS AGO WITHOUT PROBLEM ethyl chloride (Unverified Allergy, Severe, ALLERGY TO NOVOCAIN, 12/25/16) PT STATES THAT HE HAS HAD NOVOCAINE NUMEROUS TIMES SINCE THIS EPISODE ALMOST 30 YRS AGO WITHOUT PROBLEM lidocaine (Unverified Allergy, Severe, ALLERGY TO NOVOCAIN, 12/25/16) PT STATES THAT HE HAS HAD NOVOCAINE NUMEROUS TIMES SINCE THIS EPISODE ALMOST 30 YRS AGO WITHOUT PROBLEM ropivacaine (Unverified Allergy, Severe, ALLERGY TO NOVOCAIN, 12/25/16) PT STATES THAT HE HAS HAD NOVOCAINE NUMEROUS TIMES SINCE THIS EPISODE ALMOST 30 YRS AGO WITHOUT PROBLEM Reported Meds & Prescriptions Reported Meds & Active Scripts Active Cheratussin AC Liq (Guaifenesin-Codeine Liq) 100-10 Mg/5 Ml Syrp 10 Ml PO Q4H PRN Do not exceed 6 doses/24 hrs. Reported Omeprazole 40 Mg Cap 40 Mg PO DAILY Tamsulosin (Tamsulosin HCl) 0.4 Mg Cap 0.4 Mg PO HS Vitamin B Complex (B-Complex Vitamins) 1 Tab 1 Tab PO DAILY Quinidine Sulfate 300 Mg Tab 300 Mg PO DAILY PRN Atenolol 50 Mg Tab 50 Mg PO EVERY OTHER DAY Tylenol (Acetaminophen) 325 Mg Tab 650 Mg PO Q4H PRN Gabapentin 300 Mg Cap 300 Mg PO DAILY Review of Systems General / Constitutional: No: Fever Eyes: No: Visual changes HENT: No: Headaches Cardiovascular: No: Chest Pain or Discomfort Respiratory: No: Shortness of Breath Gastrointestinal: Positive: Nausea, Abdominal Pain, No: Vomiting Genitourinary: Positive: Urgency, Frequency, Dysuria, Flank Pain Musculoskeletal: No: Pain Skin: No Rash Neurologic: No: Weakness Psychiatric: No: Depression Endocrine: No: Polydipsia Hematologic/Lymphatic: No: Easy Bruising Physical Exam Narrative GENERAL: Mild distress SKIN: Focused skin assessment warm/dry. HEAD: Atraumatic. Normocephalic. EYES: Pupils equal and round. No scleral icterus. No injection or drainage. ENT: No nasal bleeding or discharge. Mucous membranes pink and moist. NECK: Trachea midline. No JVD. CARDIOVASCULAR: Regular rate and rhythm. No murmur appreciated. RESPIRATORY: No accessory muscle use. Clear to auscultation. Breath sounds equal bilaterally. GASTROINTESTINAL: Abdomen soft, non-tender, nondistended. Hepatic and splenic margins not palpable. Patient with left sided flank pain MUSCULOSKELETAL: No obvious deformities. No clubbing. No cyanosis. No edema. NEUROLOGICAL: Awake and alert. No obvious cranial nerve deficits. Motor grossly within normal limits. Normal speech. PSYCHIATRIC: Appropriate mood and affect; insight and judgment normal. Data Data Last Documented VS Vital Signs Date Time Temp Pulse Resp B/P (MAP) Pulse Ox O2 Delivery O2 Flow Rate FiO2 12/25/16 01:53 97.9 65 16 161/70 (100) 99 Room Air Orders Orders Complete Blood Count With Diff (12/25/16 02:41) Comprehensive Metabolic Panel (12/25/16 02:41) Lipase (12/25/16 02:41) Prothrombin Time / Inr (Pt) (12/25/16 02:41) Act Partial Throm Time (Ptt) (12/25/16 02:41) Urinalysis - C+S If Indicated (12/25/16 02:41) Iv Access Insert/Monitor (12/25/16 02:41) Ecg Monitoring (12/25/16 02:41) Oximetry (12/25/16 02:41) Sodium Chloride 0.9% Flush (Ns Flush) (12/25/16 02:45) Ct Abd/Pel W/O Iv Contrast (12/25/16 03:10) Morphine Inj (Morphine Inj) (12/25/16 03:15) Sodium Chlorid 0.9% 500 Ml Inj (Ns 500 M (12/25/16 03:15) Ondansetron Inj (Zofran Inj) (12/25/16 03:15) Labs Laboratory Tests Test 12/25/16 02:50 White Blood Count 9.2 TH/MM3 Red Blood Count 4.19 MIL/MM3 Hemoglobin 13.1 GM/DL Hematocrit 37.8 % Mean Corpuscular Volume 90.1 FL Mean Corpuscular Hemoglobin 31.3 PG Mean Corpuscular Hemoglobin Concent 34.8 % Red Cell Distribution Width 13.9 % Platelet Count 165 TH/MM3 Mean Platelet Volume 8.2 FL Neutrophils (%) (Auto) 73.7 % Lymphocytes (%) (Auto) 14.3 % Monocytes (%) (Auto) 9.8 % Eosinophils (%) (Auto) 1.7 % Basophils (%) (Auto) 0.5 % Neutrophils # (Auto) 6.8 TH/MM3 Lymphocytes # (Auto) 1.3 TH/MM3 Monocytes # (Auto) 0.9 TH/MM3 Eosinophils # (Auto) 0.2 TH/MM3 Basophils # (Auto) 0.0 TH/MM3 CBC Comment DIFF FINAL Differential Comment Prothrombin Time 10.5 SEC Prothromb Time International Ratio 1.0 RATIO Activated Partial Thromboplast Time 27.0 SEC Urine Color YELLOW Urine Turbidity HAZY Urine pH 6.5 Urine Specific [place] 1.016 Urine Protein NEG mg/dL Urine Glucose (UA) NEG mg/dL Urine Ketones NEG mg/dL Urine Occult Blood SMALL Urine Nitrite NEG Urine Bilirubin NEG Urine Urobilinogen LESS THAN 2.0 MG/DL Urine Leukocyte Esterase NEG Urine RBC 5 /hpf Urine WBC 2 /hpf Urine Calcium Oxalate Crystals OCC /hpf Urine Amorphous Sediment FEW Microscopic Urinalysis Comment CULT NOT INDICATED Blood Urea Nitrogen 22 MG/DL Creatinine 1.33 MG/DL Random Glucose 123 MG/DL Total Protein 7.3 GM/DL Albumin 3.7 GM/DL Calcium Level 9.1 MG/DL Alkaline Phosphatase 57 U/L Aspartate Amino Transf (AST/SGOT) 20 U/L Alanine Aminotransferase (ALT/SGPT) 24 U/L Total Bilirubin 0.3 MG/DL Sodium Level 138 MEQ/L Potassium Level 4.3 MEQ/L Chloride Level 102 MEQ/L Carbon Dioxide Level 29.8 MEQ/L Anion Gap 6 MEQ/L Estimat Glomerular Filtration Rate 51 ML/MIN Lipase 101 U/L [facility] Medical Decision Making Medical Screen Exam Complete: Yes Emergency Medical Condition: Yes Interpretation(s) Vital Signs Date Time Temp Pulse Resp B/P (MAP) Pulse Ox O2 Delivery O2 Flow Rate FiO2 12/25/16 01:53 97.9 65 16 161/70 (100) 99 Room Air Differential Diagnosis Differential includes cystitis, pyelonephritis, kidney stone, muscle skeletal pain Narrative Course Patient is an 86-year-old male who presents to emergency room complaints of left -sided flank pain which started yesterday. Patient Reports that flank pain radiates to his left groin, reports that it is associated nausea with dysuria and urinary urgency and frequency. Patient with no fevers or chills, no chest pain or shortness of breath. On physical exam, patient does have tenderness to left flank, CT of the abdomen pelvis ordered to evaluate for possible kidney stones. Lab work ordered to evaluate for renal function. UA ordered to evaluate for possible hematuria versus infection. Will medicate with morphine, Zofran and IV fluids. Vital Signs Date Time Temp Pulse Resp B/P (MAP) Pulse Ox O2 Delivery O2 Flow Rate FiO2 12/25/16 01:53 97.9 65 16 161/70 (100) 99 Room Air Laboratory Tests Test 12/25/16 02:50 White Blood Count 9.2 TH/MM3 (4.0-11.0) Red Blood Count 4.19 MIL/MM3 (4.50-5.90) Hemoglobin 13.1 GM/DL (13.0-17.0) Hematocrit 37.8 % (39.0-51.0) Mean Corpuscular Volume 90.1 FL (80.0-100.0) Mean Corpuscular Hemoglobin 31.3 PG (27.0-34.0) Mean Corpuscular Hemoglobin Concent 34.8 % (32.0-36.0) Red Cell Distribution Width 13.9 % (11.6-17.2) Platelet Count 165 TH/MM3 (150-450) Mean Platelet Volume 8.2 FL (7.0-11.0) Neutrophils (%) (Auto) 73.7 % (16.0-70.0) Lymphocytes (%) (Auto) 14.3 % (9.0-44.0) Monocytes (%) (Auto) 9.8 % (0.0-8.0) Eosinophils (%) (Auto) 1.7 % (0.0-4.0) Basophils (%) (Auto) 0.5 % (0.0-2.0) Neutrophils # (Auto) 6.8 TH/MM3 (1.8-7.7) Lymphocytes # (Auto) 1.3 TH/MM3 (1.0-4.8) Monocytes # (Auto) 0.9 TH/MM3 (0-0.9) Eosinophils # (Auto) 0.2 TH/MM3 (0-0.4) Basophils # (Auto) 0.0 TH/MM3 (0-0.2) CBC Comment DIFF FINAL Differential Comment Prothrombin Time 10.5 SEC (9.8-11.6) Prothromb Time International Ratio 1.0 RATIO Activated Partial Thromboplast Time 27.0 SEC (24.3-30.1) Urine Color YELLOW (YELLW/STRAW) Urine Turbidity HAZY (CLEAR) Urine pH 6.5 (5.0-8.5) Urine Specific [place] 1.016 (1.002-1.035) Urine Protein NEG mg/dL (NEG-TRACE) Urine Glucose (UA) NEG mg/dL (NEG) Urine Ketones NEG mg/dL (NEG) Urine Occult Blood SMALL (NEG) Urine Nitrite NEG (NEG) Urine Bilirubin NEG (NEG) Urine Urobilinogen LESS THAN 2.0 MG/DL (LESS Urine Leukocyte Esterase NEG (NEG) Urine RBC 5 /hpf (0-3) Urine WBC 2 /hpf (0-5) Urine Calcium Oxalate Crystals OCC /hpf (NONE) Urine Amorphous Sediment FEW Microscopic Urinalysis Comment CULT NOT INDICATED Blood Urea Nitrogen 22 MG/DL (7-18) Creatinine 1.33 MG/DL (0.60-1.30) Random Glucose 123 MG/DL (74-106) Total Protein 7.3 GM/DL (6.4-8.2) Albumin 3.7 GM/DL (3.4-5.0) Calcium Level 9.1 MG/DL (8.5-10.1) Alkaline Phosphatase 57 U/L (45-117) Aspartate Amino Transf (AST/SGOT) 20 U/L (15-37) Alanine Aminotransferase (ALT/SGPT) 24 U/L (12-78) Total Bilirubin 0.3 MG/DL (0.2-1.0) Sodium Level 138 MEQ/L (136-145) Potassium Level 4.3 MEQ/L (3.5-5.1) Chloride Level 102 MEQ/L (98-107) Carbon Dioxide Level 29.8 MEQ/L (21.0-32.0) Anion Gap 6 MEQ/L (5-15) Estimat Glomerular Filtration Rate 51 ML/MIN (>89) Lipase 101 U/L (73-393) Ct of abdomen and pelvis: stable moderate left hydronephrosis since july 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 Stable renal cysts. Ct result was reviewed with patient, all labs and studies reviewed with patient in detail. Patient was given a copy of his studies and lab work as he will need to follow up with his urologist. Patient is comfortable in the ER, signs and symptoms of when to return was reviewed with patient in detail Diagnosis Primary Impression: Left flank pain Additional Impressions: Hydronephrosis Renal cyst Patient Instructions: General Instructions, Narcotic given in the ED Additional Instructions: Please provide patient with a copy of his lab work and studies at discharge Please follow up with your urologist as soon as possible, please bring a copy of your studies to your doctor's office for follow up Return to ER if symptoms worsen or progress Please follow up with your primary care doctor Tracee Gillis DO Dec 25, 2016 03:15
--- NOTE | 2016-12-25 03:55 | RADRPT ---
EXAM DATE/TIME: 12/25/2016 03:38 [facility] COMPARISON: No previous studies available for comparison. INDICATIONS : Left sided flank pain with nausea. ORAL CONTRAST: No oral contrast ingested. RADIATION DOSE: 6.39 CTDIvol (mGy) MEDICAL HISTORY : Cardiovascular disease. Gastroesophageal reflux disease. Carcinoma, prostate. SURGICAL HISTORY : Appendectomy. Cholecystectomy. ENCOUNTER: Initial ACUITY: 1 day PAIN SCALE: 6/10 LOCATION: Left flank TECHNIQUE: Volumetric scanning of the abdomen and pelvis was performed. Using automated exposure control and ad justment of the mA and/or kV according to patient size, radiation dose was kept as low as reasonably achievable to obtain optimal diagnostic quality images. DICOM format image data is available electro nically for review and comparison. FINDINGS: There is moderate left hydronephrosis similar in appearance to July 2016. Findings remain compatible with a partial left UPJ obstruction. Again seen is a subcentimeter cyst lower pole left kidney. Stab le lower pole right renal cyst. No right hydronephrosis. Lung bases demonstrate some basilar atelectasis or scarring. No acute findings in the visualized live r, spleen, adrenals or pancreas. No free fluid. No bowel obstruction. No pelvic masses. CONCLUSION: 1. 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 Stable renal cysts. No new findings within the abdomen and pelvis. Joe Stroud MD on December 25, 2016 at 3:45 Board Certified Radiologist. This report was verified electronically.
[2017-02-22] MEDS ORDERED: SODIUM CHLOR 0.9% 1000 ML INJ 1,000 ML IV SCH (19:23)
[2017-02-22] MEDS ORDERED: ACETAMINOPHEN/HYDROcodone 325 MG/10 MG TAB PO PRN (19:30)
[2017-02-22] MEDS ORDERED: ONDANSETRON HCL 4 MG/2 ML VIAL IV PUSH PRN (19:30)
[2017-02-22] MEDS ORDERED: SODIUM CHLORIDE 0.9% FLUSH 10 ML FLUSH IV FLUSH PRN (19:30)
[2017-02-22] MEDS ORDERED: KETOROLAC TROMETHAMINE 30 MG/ML (IVP) VIAL IV PUSH PRN (19:30)
[2017-02-22] MEDS ORDERED: ACETAMINOPHEN/HYDROcodone 325 MG/5 MG TAB PO PRN (19:30)
[2017-02-22] MEDS ORDERED: SODIUM CHLORIDE 0.9% FLUSH 10 ML FLUSH IV FLUSH SCH (21:00)
== END 2016-12-25 05:51 | disposition home or self-care (01) ==
LOC: NEPE 01:49
DX: R10.9 Unspecified abdominal pain (principal); N13.30 Unspecified hydronephrosis; R11.0 Nausea; I48.91 Unspecified atrial fibrillation; K21.9 Gastro-esophageal reflux disease without esophagitis; I10 Essential (primary) hypertension
CPT/HCPCS: 74176; 80053; 81001; 83690; 85025; 85610; 85730; 96374; 96375; 99285; J2270; J2405; J7040

== ENCOUNTER 2017-02-22 12:56 | Observation (INO) | payer MEDICARE, BC ==
[~2017-02-22] VITALS: Ht 167.6 cm; Wt 62.0 kg
[~2017-02-22 12:56] MED LIST changes: -BIOT50005 PO; -OMEG5CAP PO; -VITA10006 PO; -VITA200012 PO
[2017-02-22 12:58] VITALS: BP 139/72; PULSE 51; RESP 14; TEMP 98.1; O2SAT 99
[2017-02-22 14:22] VITALS: BP 122/78; PULSE 55; RESP 18; O2SAT 97
--- NOTE | 2017-02-22 14:47 | PD ---
HPI Chief Complaint: GI Complaint Time Seen by Provider: 14:37 Travel History International Travel<30 days: No Contact w/Intl Traveler<30days: No Traveled to known affect area: No History of Present Illness HPI 86-year-old male came to the emergency room with vague complains. Patient understands Croatian but speaks little Croatian. He is [place]. However communication has been established. Patient says that today he had one episode of vomiting and one episode of diarrhea. The stool appeared very dark in color. Since then he has been feeling extremely weak. He denies of any chest pain, abdominal pain or headache. Denies of any lightheadedness or syncopal episode. Denies of any palpitations. Vital signs were relatively stable. [facility] Past Medical History Narrative Medical List of his past medical, surgical, social and family history is reviewed from the nursing note. Anemia: Yes Arthritis: Yes (HANDS KNEES) Atrial Fibrillation: Yes Autoimmune Disease: No Blood Disorders: No Anxiety: Yes Depression: Yes Heart Rhythm Problems: Yes (A-FIB) Cancer: No Cardiovascular Problems: Yes (A-FIB) High Cholesterol: No Chemotherapy: No Chest Pain: No Congestive Heart Failure: No Cerebrovascular Accident: No Diabetes: No Diminished Hearing: No Endocrine: No Gastrointestinal Disorders: Yes (HX OF COLON POLYPS, DIVERTICULOSIS) GERD: Yes Genitourinary: No Headaches: Yes Hepatitis: No Hiatal Hernia: No Hypertension: Yes Immune Disorder: No Implanted Vascular Access Dvce: No Medical other: No Musculoskeletal: Yes Neurologic: No Psychiatric: Yes Reproductive: No Respiratory: No Immunizations Current: No Radiation Therapy: No Renal Failure: No Seizures: No Thyroid Disease: No Ulcer: Yes (GASTRIC) ?: Not Past Surgical History Abdominal Surgery: Yes AICD: No Appendectomy: Yes Cardiac Surgery: No Cholecystectomy: Yes (2004) Ear Surgery: No Endocrine Surgery: No Eye Surgery: Yes (CATARACTS) Genitourinary Surgery: No Gynecologic Surgery: No Insulin Pump: No Joint Replacement: No Neurologic Surgery: Yes (LUMBAR LAMINECTOMY) Oral Surgery: Yes (DENTURES, TONSILECTOMY) Pacemaker: No Thoracic Surgery: No Other Surgery: Yes Social History Alcohol Use: No Tobacco Use: No Substance Use: No Allergies-Medications (Allergen,Severity, Reaction): Coded Allergies: benzocaine (Unverified Allergy, Severe, ALLERGY TO NOVOCAIN, 12/25/16) PT STATES THAT HE HAS HAD NOVOCAINE NUMEROUS TIMES SINCE THIS EPISODE ALMOST 30 YRS AGO WITHOUT PROBLEM bupivacaine (Unverified Allergy, Severe, ALLERGY TO NOVOCAIN, 12/25/16) PT STATES THAT HE HAS HAD NOVOCAINE NUMEROUS TIMES SINCE THIS EPISODE ALMOST 30 YRS AGO WITHOUT PROBLEM ethyl chloride (Unverified Allergy, Severe, ALLERGY TO NOVOCAIN, 12/25/16) PT STATES THAT HE HAS HAD NOVOCAINE NUMEROUS TIMES SINCE THIS EPISODE ALMOST 30 YRS AGO WITHOUT PROBLEM lidocaine (Unverified Allergy, Severe, ALLERGY TO NOVOCAIN, 12/25/16) PT STATES THAT HE HAS HAD NOVOCAINE NUMEROUS TIMES SINCE THIS EPISODE ALMOST 30 YRS AGO WITHOUT PROBLEM ropivacaine (Unverified Allergy, Severe, ALLERGY TO NOVOCAIN, 12/25/16) PT STATES THAT HE HAS HAD NOVOCAINE NUMEROUS TIMES SINCE THIS EPISODE ALMOST 30 YRS AGO WITHOUT PROBLEM Comments List of his allergies reviewed from the nursing note. Reported Meds & Prescriptions Reported Meds & Active Scripts Active Reported Omeprazole 40 Mg Cap 40 Mg PO DAILY Tamsulosin (Tamsulosin HCl) 0.4 Mg Cap 0.4 Mg PO HS Vitamin B Complex (B-Complex Vitamins) 1 Tab 1 Tab PO DAILY Quinidine Sulfate 300 Mg Tab 300 Mg PO DAILY PRN Atenolol 50 Mg Tab 50 Mg PO EVERY OTHER DAY Tylenol (Acetaminophen) 325 Mg Tab 650 Mg PO Q4H PRN Narrative Medication List of his home medications reviewed from the nursing note. Review of Systems Except as stated in HPI: all other systems reviewed are Neg Gastrointestinal: Positive: Vomiting, Diarrhea Musculoskeletal: Positive: Weakness Physical Exam Narrative GENERAL: Awake, alert, mild distress SKIN: Focused skin assessment warm/dry. HEAD: Atraumatic. Normocephalic. EYES: Pupils equal and round. No scleral icterus. No injection or drainage. ENT: No nasal bleeding or discharge. Mucous membranes pink and moist. Dry mucous membrane. NECK: Trachea midline. No JVD. CARDIOVASCULAR: Regular rate and rhythm. No murmur appreciated. RESPIRATORY: No accessory muscle use. Clear to auscultation. Breath sounds equal bilaterally. GASTROINTESTINAL: Abdomen soft, non-tender, nondistended. Hepatic and splenic margins not palpable. MUSCULOSKELETAL: No obvious deformities. No clubbing. No cyanosis. No edema. NEUROLOGICAL: Awake and alert. No obvious cranial nerve deficits. Motor grossly within normal limits. Normal speech. PSYCHIATRIC: Appropriate mood and affect; insight and judgment normal. Data Data Last Documented VS Vital Signs Date Time Temp Pulse Resp B/P (MAP) Pulse Ox O2 Delivery O2 Flow Rate FiO2 02/22/17 15:38 55 133/59 (83) 129/63 (85) 02/22/17 15:04 98 Room Air 02/22/17 15:04 18 02/22/17 12:58 98.1 Orders Orders Electrocardiogram (02/22/17 14:53) Ckmb (Isoenzyme) Profile (02/22/17 14:53) Complete Blood Count With Diff (02/22/17 14:53) Comprehensive Metabolic Panel (02/22/17 14:53) Magnesium (Mg) (02/22/17 14:53) Prothrombin Time / Inr (Pt) (02/22/17 14:53) Troponin I (02/22/17 14:53) Chest, Single Ap (02/22/17 14:53) Ecg Monitoring (02/22/17 14:53) Bilateral Bp Monitoring (02/22/17 14:53) Iv Access Insert/Monitor (02/22/17 14:53) Oximetry (02/22/17 14:53) Oxygen Administration (02/22/17 14:53) Sodium Chloride 0.9% Flush (Ns Flush) (02/22/17 15:00) Sodium Chlor 0.9% 1000 Ml Inj (Ns 1000 M (02/22/17 15:00) CKMB (02/22/17 15:00) CKMB% (02/22/17 15:00) Labs Laboratory Tests Test 02/22/17 15:00 White Blood Count 4.2 TH/MM3 Red Blood Count 3.79 MIL/MM3 Hemoglobin 11.4 GM/DL Hematocrit 34.1 % Mean Corpuscular Volume 89.8 FL Mean Corpuscular Hemoglobin 30.0 PG Mean Corpuscular Hemoglobin Concent 33.4 % Red Cell Distribution Width 14.2 % Platelet Count 161 TH/MM3 Mean Platelet Volume 9.2 FL Neutrophils (%) (Auto) 60.1 % Lymphocytes (%) (Auto) 26.1 % Monocytes (%) (Auto) 9.7 % Eosinophils (%) (Auto) 2.7 % Basophils (%) (Auto) 1.4 % Neutrophils # (Auto) 2.6 TH/MM3 Lymphocytes # (Auto) 1.1 TH/MM3 Monocytes # (Auto) 0.4 TH/MM3 Eosinophils # (Auto) 0.1 TH/MM3 Basophils # (Auto) 0.1 TH/MM3 CBC Comment DIFF FINAL Differential Comment Prothrombin Time 11.3 SEC Prothromb Time International Ratio 1.0 RATIO Blood Urea Nitrogen 20 MG/DL Creatinine 0.82 MG/DL Random Glucose 132 MG/DL Total Protein 6.2 GM/DL Albumin 3.2 GM/DL Calcium Level 8.7 MG/DL Magnesium Level 2.1 MG/DL Alkaline Phosphatase 53 U/L Aspartate Amino Transf (AST/SGOT) 19 U/L Alanine Aminotransferase (ALT/SGPT) 20 U/L Total Bilirubin 0.3 MG/DL Sodium Level 139 MEQ/L Potassium Level 3.9 MEQ/L Chloride Level 105 MEQ/L Carbon Dioxide Level 30.5 MEQ/L Anion Gap 4 MEQ/L Estimat Glomerular Filtration Rate 90 ML/MIN Total Creatine Kinase 183 U/L Creatine Kinase MB 5.1 NG/ML Troponin I LESS THAN 0.02 NG/ML MDM Medical Decision Making Medical Screen Exam Complete: Yes Emergency Medical Condition: Yes Medical Record Reviewed: Yes Interpretation(s) Twelve-lead EKG was reviewed by me. Normal sinus rhythm, normal axis, bradycardia, nonspecific ST-T wave changes. Heart rate of 59 bpm. Differential Diagnosis Dehydration, electrolyte abnormality, renal failure, ACS Narrative Course 5:21 PM blood test results of back and within acceptable limits. There was orthostatic vital signs done initially which was positive. Patient also got dizzy upon standing up. I had given him 1 L of IV fluid bolus after which orthostatics were repeated and he continues to be positive and still lightheaded when he stands up. I would like to admit him at this point. Procedures EKG Prior to Arrival: No Diagnosis Primary Impression: Dehydration Additional Impression: Orthostatic hypotension Admitting Information Admitting Physician Requests: Stephen Appiah MD Feb 22, 2017 14:47
[2017-02-22] MEDS ORDERED: SODIUM CHLORIDE 0.9% FLUSH 10 ML FLUSH IVF PRN (15:00)
[2017-02-22] MEDS ORDERED: SODIUM CHLOR 0.9% 1000 ML INJ 1,000 ML IV ONE (15:00)
[2017-02-22 15:04] VITALS: RESP 18; O2SAT 98
--- NOTE | 2017-02-22 15:22 | RADRPT ---
EXAM DATE/TIME: 02/22/2017 15:06 [facility] COMPARISON: CHEST PA & LAT, August 01, 2016, 13:59. CHEST SINGLE AP, June 17, 2015, 9:50. INDICATIONS : Chest pain. MEDICAL HISTORY : Gastroesophageal reflux disease. Atrial fibrillation. Dyspnea. Colon polyps.Diverticulosis. Ulcer. Re nal disease. Left renal cyst. Arthritis. SURGICAL HISTORY : Appendectomy. Cholecystectomy. Tonsillectomy. Lumbar laminectomy. ENCOUNTER: Initial ACUITY: 1 day PAIN SCORE: 8/10 LOCATION: Bilateral chest FINDINGS: 2 AP views of the chest demonstrate a normal-sized cardiac silhouette. Multiple EKG lines overlie the patient. No effusion, consolidation, or pneumothorax is present. Bones and soft tissues demonstrate no acute finding. CONCLUSION: No acute cardiopulmonary abnormality is identified. Roldan Gutierrez MD on February 22, 2017 at 15:19 Board Certified Radiologist. This report was verified electronically.
[2017-02-22 15:30] LABS: AUTOMATED NEUTROPHIL # 2.6 TH/MM3 (1.8-7.7); BASOPHIL # 0.1 TH/MM3 (0-0.2); BASOPHIL % 1.4 % (0.0-2.0); EOSINOPHIL # 0.1 TH/MM3 (0-0.4); EOSINOPHIL % 2.7 % (0.0-4.0); HEMATOCRIT 34.1 % (39.0-51.0); HEMO FLAGS DIFF FINAL; LYMPH % 26.1 % (9.0-44.0); LYMPHOCYTE # 1.1 TH/MM3 (1.0-4.8); MEAN CELL VOLUME 89.8 FL (80.0-100.0); MEAN CORPUSCULAR HGB CONC 33.4 % (32.0-36.0); MONO % 9.7 % (0.0-8.0); NEUT % 60.1 % (16.0-70.0); PLATELET COUNT 161 TH/MM3 (150-450); RED BLOOD COUNT 3.79 MIL/MM3 (4.50-5.90); RED CELL DISTRIBUTION WIDTH 14.2 % (11.6-17.2); WHITE BLOOD COUNT 4.2 TH/MM3 (4.0-11.0)
[2017-02-22 15:38] VITALS: BP_SYST 129; BP_SYST 133; BP_DIAS 59; BP_DIAS 63; PULSE 55
[2017-02-22 15:46] LABS: PROTHROMBIN TIME - PATIENT 11.3 SEC (9.8-11.6)
[2017-02-22 15:55] LABS: ALT (GPT) 20 U/L (12-78); ANION GAP 4 MEQ/L (5-15); AST (GOT) 19 U/L (15-37); BICARBONATE 30.5 MEQ/L (21.0-32.0); BLOOD UREA NITROGEN 20 MG/DL (7-18); CHLORIDE 105 MEQ/L (98-107); GLOMERULAR FILTRATION RATE 90 ML/MIN (>89); MAGNESIUM 2.1 MG/DL (1.5-2.5); POTASSIUM 3.9 MEQ/L (3.5-5.1); SODIUM (NA) 139 MEQ/L (136-145)
[2017-02-22 15:59] LABS: ALKALINE PHOSPHATASE 53 U/L (45-117); CREATINE KINASE 183 U/L (39-308); TOTAL BILIRUBIN ADULT 0.3 MG/DL (0.2-1.0)
[2017-02-22 16:12] LABS: CKMB 5.1 NG/ML (0.5-3.6)
--- NOTE | 2017-02-22 17:30 | HHI.HP ---
HPI Service Family Medicine Primary Care Physician Brenda Davis MD Admission Diagnosis dehydration, orthostatic hypotension Diagnoses: International Travel<30 Days: No Contact w/Intl Traveler<30days: No Known Affected Area: No History of Present Illness Patient is an 86 y/o M w/PMH of HTN, A-fib and Prostate CA who presents with near-syncope. Patient is from [place] and has a heavy-accent. Patient states that he first had episodes of sweating,followed by vomiting breakfast he had eaten this morning. Started feeling nauseous at 12 pm. Vomited 3x. No vomiting or nausea since then. [place] dizziness and lightheadedness ; endorses feeling off balance. The night before, patient ate chicken and potatoes for dinner with friends at a restaurant. Did not check to see if his friends had similar symptoms. Also reports episode of diarrhea x1 that appeared black. Drove himself to emergency room because he was concerned about vomiting and sweating, and he was worried about his health since he lives alone. [place] weak when he arrived to the ED (describes weakness as a lack of energy). Feels better now. No nausea/vomiting, no abdominal pain, no palpitations, visual disturbance, or fall. Cannot recall his last diverticulosis flare. Has been having difficulties with urination, including pain with initiating his stream. He also notes changes in urine color. Approximately one week ago, it was a red color after taking a medication for bladder spasms that was likely Pyridium. Urine today was [place]-green. Took a year-old tab of ciprofloxacin this morning because he thought he was ill. Dr. Morales is his urologist, who he has been following with him regularly for his hx of prostate cancer. Last radiation for prostate was in October. He was also evaluated this week by Dr. Fink for neurology. He says he was seen for his memory and sometimes "walks like I am drunk." Patient claims chronic pain in his neck from cervical disc disease. (Divine Schilling MD R1) Review of Systems Constitutional: DENIES: Weight gain, Weight loss Eyes: DENIES: Vision loss Ears, nose, mouth, throat: DENIES: Vertigo Respiratory: DENIES: Cough, Sputum production, Shortness of breath Cardiovascular: DENIES: Chest pain, Palpitations Genitourinary: COMPLAINS OF: Urinary frequency, Urinary incontinence, Dysuria Musculoskeletal: COMPLAINS OF: Joint pain (Divine Schilling MD R1) Past Family Social History Past Medical History Prostate cancer - diagnosed this year, finished radiation in 10/2016 at clinic on [place] atrial fibrillation diverticulosis - last flare about a year ago cervical disc disease HTN Past Surgical History Laminectomy Tonsils bilateral hernias radiation to prostate cholecystectomy (Divine Schilling MD R1) Allergies: Coded Allergies: benzocaine (Unverified Allergy, Severe, ALLERGY TO NOVOCAIN, 12/25/16) PT STATES THAT HE HAS HAD NOVOCAINE NUMEROUS TIMES SINCE THIS EPISODE ALMOST 30 YRS AGO WITHOUT PROBLEM bupivacaine (Unverified Allergy, Severe, ALLERGY TO NOVOCAIN, 12/25/16) PT STATES THAT HE HAS HAD NOVOCAINE NUMEROUS TIMES SINCE THIS EPISODE ALMOST 30 YRS AGO WITHOUT PROBLEM ethyl chloride (Unverified Allergy, Severe, ALLERGY TO NOVOCAIN, 12/25/16) PT STATES THAT HE HAS HAD NOVOCAINE NUMEROUS TIMES SINCE THIS EPISODE ALMOST 30 YRS AGO WITHOUT PROBLEM lidocaine (Unverified Allergy, Severe, ALLERGY TO NOVOCAIN, 12/25/16) PT STATES THAT HE HAS HAD NOVOCAINE NUMEROUS TIMES SINCE THIS EPISODE ALMOST 30 YRS AGO WITHOUT PROBLEM ropivacaine (Unverified Allergy, Severe, ALLERGY TO NOVOCAIN, 12/25/16) PT STATES THAT HE HAS HAD NOVOCAINE NUMEROUS TIMES SINCE THIS EPISODE ALMOST 30 YRS AGO WITHOUT PROBLEM Family History 2 sisters : breast cancer Older brother: passed at 70 Social History Born in [place]. Lives in house alone. No smoking, drinking, no other drugs. (Divine Schilling MD R1) Physical Exam Vital Signs Vital Signs Date Time Temp Pulse Resp B/P (MAP) Pulse Ox O2 Delivery O2 Flow Rate FiO2 02/22/17 15:38 55 133/59 (83) 129/63 (85) 02/22/17 15:04 98 Room Air 02/22/17 15:04 18 98 Room Air 02/22/17 14:22 55 18 122/78 (93) 97 Room Air 02/22/17 14:18 18 02/22/17 12:58 98.1 51 14 139/72 (94) 99 Physical Exam GENERAL: This is a well-nourished, well-developed patient, in no apparent distress. SKIN: . Cool and dry. HEAD: Atraumatic. Normocephalic. EYES: Pupils equal round and reactive. Extraocular motions intact. ENT: Nose without bleeding, purulent drainage or septal hematoma. Airway patent. NECK: Trachea midline. No JVD or lymphadenopathy. CARDIOVASCULAR: Regular rate and rhythm without murmurs, gallops, or rubs. RESPIRATORY: Clear to auscultation. Breath sounds equal bilaterally. GASTROINTESTINAL: Abdomen soft, nondistended. No tenderness to palpation. + inguinal lymphadenopathy MUSCULOSKELETAL: Extremities without clubbing, cyanosis, or edema. No joint tenderness, effusion, or edema noted. No calf tenderness. Negative Homans sign bilaterally. BACK: right sided CVA tenderness NEUROLOGICAL: Awake and alert. No focal deficits. Motor and sensory grossly within normal limits. Normal speech. No pronator drift. 5/5 motor strength. Normal finger to nose testing. Laboratory Laboratory Tests Test 02/22/17 15:00 White Blood Count 4.2 Red Blood Count 3.79 Hemoglobin 11.4 Hematocrit 34.1 Mean Corpuscular Volume 89.8 Mean Corpuscular Hemoglobin 30.0 Mean Corpuscular Hemoglobin Concent 33.4 Red Cell Distribution Width 14.2 Platelet Count 161 Mean Platelet Volume 9.2 Neutrophils (%) (Auto) 60.1 Lymphocytes (%) (Auto) 26.1 Monocytes (%) (Auto) 9.7 Eosinophils (%) (Auto) 2.7 Basophils (%) (Auto) 1.4 Neutrophils # (Auto) 2.6 Lymphocytes # (Auto) 1.1 Monocytes # (Auto) 0.4 Eosinophils # (Auto) 0.1 Basophils # (Auto) 0.1 CBC Comment DIFF FINAL Differential Comment Prothrombin Time 11.3 Prothromb Time International Ratio 1.0 Blood Urea Nitrogen 20 Creatinine 0.82 Random Glucose 132 Total Protein 6.2 Albumin 3.2 Calcium Level 8.7 Magnesium Level 2.1 Alkaline Phosphatase 53 Aspartate Amino Transf (AST/SGOT) 19 Alanine Aminotransferase (ALT/SGPT) 20 Total Bilirubin 0.3 Sodium Level 139 Potassium Level 3.9 Chloride Level 105 Carbon Dioxide Level 30.5 Anion Gap 4 Estimat Glomerular Filtration Rate 90 Total Creatine Kinase 183 Creatine Kinase MB 5.1 Troponin I LESS THAN 0.02 (Divine Schilling MD R1) Result Diagram: 02/22/17 1500 02/22/17 1500 Caprini VTE Risk Assessment Caprini VTE Risk Assessment: Mod/High Risk (score >= 2) Caprini Risk Assessment Model Point Value = 1 Point Value = 2 Point Value = 3 Point Value = 5 Age 41-60 Minor surgery BMI > 25 kg/m2 Swollen legs Varicose veins or History of unexplained or recurrent spontaneous Oral contraceptives or hormone replacement Sepsis (< 1 month) Serious lung disease, including pneumonia (< 1 month) Abnormal pulmonary function Acute myocardial infarction Congestive heart failure (< 1 month) History of inflammatory bowel disease Medical patient at bed rest Age 61-74 Arthroscopic surgery Major open surgery (> 45 min) Laparoscopic surgery (> 45 min) Malignancy Confined to bed (> 72 hours) Immobilizing plaster cast Central venous access Age >= 75 History of VTE Family history of VTE Factor V Leiden Prothrombin [id number] Lupus anticoagulant Anticardiolipin antibodies Elevated serum homocysteine Heparin-induced thrombocytopenia Other congenital or acquired thrombophilia Stroke (< 1 month) Elective arthroplasty Hip, pelvis, or leg fracture Acute spinal cord injury (< 1 month) Prophylaxis Regimen Total Risk Factor Score Risk Level Prophylaxis Regimen 0-1 Low Early ambulation 2 Moderate Order ONE of the following: *Sequential Compression Device (SCD) *Heparin 5000 units SQ BID 3-4 Higher Order ONE of the following medications: *Heparin 5000 units SQ TID *Enoxaparin/Lovenox 40 mg SQ daily (WT < 150 kg, CrCl > 30 mL/min) *Enoxaparin/Lovenox 30 mg SQ daily (WT < 150 kg, CrCl > 10-29 mL/min) *Enoxaparin/Lovenox 30 mg SQ BID (WT < 150 kg, CrCl > 30 mL/min) AND/OR *Sequential Compression Device (SCD) 5 or more Highest Order ONE of the following medications: *Heparin 5000 units SQ TID (Preferred with Epidurals) *Enoxaparin/Lovenox 40 mg SQ daily (WT < 150 kg, CrCl > 30 mL/min) *Enoxaparin/Lovenox 30 mg SQ daily (WT < 150 kg, CrCl > 10-29 mL/min) *Enoxaparin/Lovenox 30 mg SQ BID (WT < 150 kg, CrCl > 30 mL/min) AND *Sequential Compression Device (SCD) (Divine Schilling MD R1) Assessment and Plan Assessment and Plan 86 y/o M w/hx of afib, diverticulosis, and prostate cancer who is admitted for generalized weakness and near-syncope. Associated with nausea, vomiting, and dark tarry stools. Admitted to observation. Work-up so far suggestive of orthostatic syncope/vasovagal syncope. BP >10 mm Hg systolic decrease with positional change per ED note. Troponins were negative and ECG wnl. Will further r/o arrhythmic causes with cardiac tele monitoring. No focal deficits seen on exam. Blood or fluid loss and malnutrition may be a contributory factor as total protein and albumin were low, BUN was slightly elevated at 20, and patient has observed dark tarry stool x1. Will continue IVF, regular diet, perform hemoccult of stool, and trend HH. Code Status FULL Discussed Condition With Dr. Siddiqi (Divine Schilling MD R1) Attending Attestation THIS CASE WAS DISCUSSED WITH THE RESIDENT PHYSICIAN. I HAVE REVIEWED THE RECORD AND AGREE WITH THE ABOVE NOTE AND PLAN OF CARE WAS DISCUSSED. I HAVE AUTHORIZED THE ORDER FOR PLACEMENT IN OUT-PATIENT OBSERVATION STATUS. (Rachel Sheldon MD) Problem List: (1) Near syncope ICD Codes: R55 - Syncope and collapse Plan: Work-up so far suggestive of orthostatic syncope/vasovagal syncope. BP > 10 mm Hg systolic decrease with positional change per ED note. Troponins were negative and ECG wnl. Will further r/o arrhythmic causes with cardiac tele monitoring. No focal deficits seen on exam. May perform orthostatic vitals again before and after fluid bolus. If no resolution and other causes are ruled out, consider recommending compression stockings to patient and may consult occupational therapy for recommendations on modifying daily living activities for future safety. - electrolytes wnl - ECG normal sinus bradycardia - troponins x1 nl - CXR wnl PLAN - Con't tele - trend HH given dark stools - IV hydration - consider repeat orthostatics - monitor (2) Afib ICD Codes: I48.91 - Unspecified atrial fibrillation Status: Chronic Plan: Con't lovenox and atenolol - consider ordering an echo (r/o valvular stenosis) (3) Dark stools ICD Codes: R19.5 - Other fecal abnormalities Plan: Dark stools x1 today, may be related to diverticulosis v upper GI bleed -Trend HHs Q6H -hemoccult stool and rectal exam -stool studies (4) Anemia ICD Codes: D64.9 - Anemia, unspecified Status: Acute Plan: See above for melena - will monitor - for hgb<7, consider type and cross and transfusion (5) Vomiting ICD Codes: R11.10 - Vomiting, unspecified Status: Acute Plan: Patient is not currently nauseous. Vomiting episode possibly related to undercooked food v gastroenteritis. WBC wnl, denies abdominal pain, no fevers. -Zofran PRN - order flu panel (6) Orthostatic hypotension ICD Codes: I95.1 - Orthostatic hypotension Status: Acute Plan: - Monitor vitals and I/Os - IV hydration - out of bed with assistance - consider repeat orthostatic vitals, see above (7) Hydronephrosis, left ICD Codes: N13.30 - Unspecified hydronephrosis Plan: CT done 12/25/16 showing moderate left sided hydronephrosis, likely secondary to prostate cancer - stable, BUN/Cr w/in normal limits - monitor I/Os (8) Prostate CA ICD Codes: C61 - Malignant neoplasm of prostate Status: Acute Plan: s/p radiation w/increasing urinary hesitancy and pain. Normal WBC, U/A negative for pathology. -Monitor strict I/Os -Con't home tamsulosin (9) Chronic neck pain ICD Codes: M54.2 - Cervicalgia; G89.29 - Other chronic pain Plan: Patient complains of chronic neck pain - Lortab 10-325 mg PRN for pain (10) FEN Plan: Fluids: IVF Regular Diet Lovanox, hold if hemoccult positive or decrease in hematocrit Replace electrolytes if needed (Divine Schilling MD R1) Problem Qualifiers (1) Anemia: Divine Schilling MD R1 Feb 22, 2017 17:30 Rachel Sheldon MD Feb 23, 2017 14:14
[2017-02-22 17:57] LABS: BLOOD, URINE NEG (NEG); GLUCOSE,URINE NEG (NEG); HYALINE CAST, URINE 1 /lpf (RARE); KETONE, URINE NEG (NEG); NITRITE,URINE NEG (NEG)
[2017-02-22 18:11] LABS: COMMENT (UR) CULT NOT INDICATED; CULTURE IF INDICATED CULT NOT INDICATED; URINE COLOR LIGHT-GREEN (YELLW/STRAW)
[2017-02-22] MEDS ORDERED: QUINIDINE SULFATE 300 MG PO PRN (18:15)
[2017-02-22] MEDS ORDERED: NALOXONE HCL 0.4 MG/ML AMP IV PUSH PRN (18:30)
[2017-02-22] MEDS ORDERED: SENNOSIDES 8.6 MG TAB PO PRN (18:30)
[2017-02-22] MEDS ORDERED: LACTULOSE SYRUP 20 GM/30 ML CUP PO PRN (18:30)
[2017-02-22] MEDS ORDERED: BISACODYL 10 MG SUPP RECTAL PRN (18:30)
[2017-02-22] MEDS ORDERED: SODIUM CHLORIDE 0.9% FLUSH 10 ML FLUSH IV FLUSH PRN (18:30)
[2017-02-22 19:00] VITALS: BP 131/78; PULSE 72; RESP 16; O2SAT 96
[2017-02-22] MEDS: SODIUM CHLOR 0.9% 1000 ML INJ 1,000 ML IV SCH ×2 (19:08→20:38)
[2017-02-22] MEDS ORDERED: ENOXAPARIN SODIUM 40 MG/0.4 ML SYRINGE SQ SCH (20:00)
[2017-02-22] MEDS ORDERED: ACETAMINOPHEN/HYDROcodone 325 MG/10 MG TAB PO PRN (20:45)
[2017-02-22] MEDS ORDERED: ACETAMINOPHEN/HYDROcodone 325 MG/5 MG TAB PO PRN (20:45)
[2017-02-22 20:48] VITALS: BP 147/67; PULSE 78; RESP 18; TEMP 97.4; O2SAT 99
[2017-02-22] MEDS ORDERED: TAMSULOSIN HCL 0.4 MG CAP PO SCH (21:00)
[2017-02-22 21:56] LABS: HEMATOCRIT 34.2 % (39.0-51.0); REVIEW FLAG FINAL
--- NOTE | 2017-02-22 22:52 | RADRPT ---
EXAM DATE/TIME: 02/22/2017 22:00 [facility] COMPARISON: CT ABDOMEN & PELVIS W/O CONTRAST, December 25, 2016, 3:38. INDICATIONS : Lower abdominal pain with dysuria. ORAL CONTRAST: No oral contrast ingested. RADIATION DOSE: 5.81 CTDIvol (mGy) MEDICAL HISTORY : Carcinoma, prostate. Diverticulitis. Hydronephrosis. Cardiovascular disease. Gastroesophageal reflux disease. SURGICAL HISTORY : Appendectomy. Cholecystectomy. ENCOUNTER: Initial ACUITY: 1 day PAIN SCALE: 7/10 LOCATION: Bilateral lower quadrant TECHNIQUE: Volumetric scanning of the abdomen and pelvis was performed. Using automated exposure control and ad justment of the mA and/or kV according to patient size, radiation dose was kept as low as reasonably achievable to obtain optimal diagnostic quality images. DICOM format image data is available electro nically for review and comparison. FINDINGS: Stable examination relative to the prior study. There is moderate left hydronephrosis inclusive of di latation of the pelvis to the UVJ this is probably chronic. The ureter beyond this appears normal. Th ere is a 4.4 cm cyst of the lower pole the left kidney and the right kidney is negative other than a stable 2 cm cyst of the lower pole there. Facet arthritic changes noted of the lower l umbar spine with surgical clips in the bilateral inguinal regions. I would represents inguinal hernia repair. There are a few scattered uncomplicated diverticula in the proximal sigmoid colon with benig n bowel distribution. Prior cholecystectomy is noted. The liver and spleen as well as pancreas and ad renal glands are normal. CONCLUSION: Stable CT scan of the abdomen and pelvis. Bilateral renal cysts as described above. 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 Ureters beyond this are normal. Surgical clips were seen as noted in the region of the pro state. A few scattered Diverticuli of the colon. Degenerative changes of lower lumbar spine. Kt Burns MD on February 22, 2017 at 22:43 Board Certified Radiologist. This report was verified electronically.
[2017-02-22] MEDS: DOCUSATE SODIUM 50 MG/SENNA 8.6 MG TAB PO SCH (22:53)
[2017-02-22] MEDS: SODIUM CHLORIDE 0.9% FLUSH 10 ML FLUSH IV FLUSH SCH (22:54)
[2017-02-22 23:25] LABS: HEMATOCRIT 33.2 % (39.0-51.0); REVIEW FLAG FINAL
[2017-02-23] VITALS (7 sets, daily range): BP systolic 107–153; BP diastolic 53–67; PULSE 64–72; RESP 16–18; TEMP 97.7–98.1; O2SAT 94–98
[2017-02-23 04:25] LABS: AUTOMATED NEUTROPHIL # 1.9 TH/MM3 (1.8-7.7); BASOPHIL # 0.1 TH/MM3 (0-0.2); BASOPHIL % 1.8 % (0.0-2.0); EOSINOPHIL # 0.2 TH/MM3 (0-0.4); EOSINOPHIL % 4.4 % (0.0-4.0); HEMATOCRIT 32.2 % (39.0-51.0); HEMO FLAGS DIFF FINAL; LYMPH % 35.2 % (9.0-44.0); LYMPHOCYTE # 1.4 TH/MM3 (1.0-4.8); MEAN CELL VOLUME 89.6 FL (80.0-100.0); MEAN CORPUSCULAR HEMOGLOBIN 30.5 PG (27.0-34.0); MEAN CORPUSCULAR HGB CONC 34.1 % (32.0-36.0); MONO % 10.8 % (0.0-8.0); NEUT % 47.8 % (16.0-70.0); PLATELET COUNT 155 TH/MM3 (150-450); RED BLOOD COUNT 3.59 MIL/MM3 (4.50-5.90); RED CELL DISTRIBUTION WIDTH 14.2 % (11.6-17.2)
[2017-02-23 04:27] LABS: ANION GAP 6 MEQ/L (5-15); AST (GOT) 17 U/L (15-37); BICARBONATE 26.3 MEQ/L (21.0-32.0); BLOOD UREA NITROGEN 16 MG/DL (7-18); CHLORIDE 109 MEQ/L (98-107); GLOMERULAR FILTRATION RATE 101 ML/MIN (>89); POTASSIUM 3.9 MEQ/L (3.5-5.1); SODIUM (NA) 141 MEQ/L (136-145)
[2017-02-23 04:30] LABS: ALKALINE PHOSPHATASE 47 U/L (45-117); ALT (GPT) 17 U/L (12-78); TOTAL BILIRUBIN ADULT 0.3 MG/DL (0.2-1.0)
[2017-02-23] MEDS: SODIUM CHLOR 0.9% 1000 ML INJ 1,000 ML IV SCH ×3 (06:38→14:30)
[2017-02-23] MEDS ORDERED: PANTOPRAZOLE SOD 40 MG DELAYED RELEASE TAB PO SCH (09:00)
[2017-02-23] MEDS: SODIUM CHLORIDE 0.9% FLUSH 10 ML FLUSH IV FLUSH SCH (09:00)
[2017-02-23] MEDS ORDERED: NON-FORMULARY DRUG (Omeprazole 40 MG) PO SCH (09:00)
[2017-02-23] MEDS: DOCUSATE SODIUM 50 MG/SENNA 8.6 MG TAB PO SCH (10:27)
[2017-02-23 11:37] LABS: HEMATOCRIT 33.2 % (39.0-51.0); REVIEW FLAG FINAL
--- NOTE | 2017-02-23 13:50 | HHI.FPPN ---
Problem Problem List: (1) Orthostatic hypotension (2) Dehydration (3) Afib (4) Vomiting Subjective Subjective 86 y/o with PMH of HTN, A-fib and Prostate CA who presented to the ED with one day h/o emesis and nausea and episode of watery dark stool -- felt lightheaded and dizzy and weak. He was found to have orthostatic hypotension in the ED and was given IVF bolus and admitted for observation and monitoring due to his comorbid illnesses and advanced age. On exam this morning he is resting comfortably in bed, eating his full breakfast and denies any other symptoms like what he had on admission. He reports recent dysuria and some change in urine culture -- he took bladder spasm med a week ago and cipro at home the day of admission. He has a h/o prostate CA with radiation treatment last done in October He denies CP, SOB, ONEAL, Denies continues emesis, nausea or diarrhea and reports he is back to his usual state of health. Review of Systems Constitutional: DENIES: Weight gain, Weight loss Eyes: DENIES: Vision loss Ears, nose, mouth, throat: DENIES: Vertigo Respiratory: DENIES: Cough, Sputum production, Shortness of breath Cardiovascular: DENIES: Chest pain, Palpitations Genitourinary: COMPLAINS OF: Urinary frequency, Urinary incontinence, Dysuria Musculoskeletal: COMPLAINS OF: Joint pain chronic Past Family Social History Past Medical History Prostate cancer - diagnosed this year, finished radiation in 10/2016 at clinic on [place] atrial fibrillation diverticulosis - last flare about a year ago cervical disc disease HTN Past Surgical History Laminectomy Tonsils bilateral hernias radiation to prostate cholecystectomy Allergies: Coded Allergies: benzocaine (Unverified Allergy, Severe, ALLERGY TO NOVOCAIN, 12/25/16) PT STATES THAT HE HAS HAD NOVOCAINE NUMEROUS TIMES SINCE THIS EPISODE ALMOST 30 YRS AGO WITHOUT PROBLEM bupivacaine (Unverified Allergy, Severe, ALLERGY TO NOVOCAIN, 12/25/16) PT STATES THAT HE HAS HAD NOVOCAINE NUMEROUS TIMES SINCE THIS EPISODE ALMOST 30 YRS AGO WITHOUT PROBLEM ethyl chloride (Unverified Allergy, Severe, ALLERGY TO NOVOCAIN, 12/25/16) PT STATES THAT HE HAS HAD NOVOCAINE NUMEROUS TIMES SINCE THIS EPISODE ALMOST 30 YRS AGO WITHOUT PROBLEM lidocaine (Unverified Allergy, Severe, ALLERGY TO NOVOCAIN, 12/25/16) PT STATES THAT HE HAS HAD NOVOCAINE NUMEROUS TIMES SINCE THIS EPISODE ALMOST 30 YRS AGO WITHOUT PROBLEM ropivacaine (Unverified Allergy, Severe, ALLERGY TO NOVOCAIN, 12/25/16) PT STATES THAT HE HAS HAD NOVOCAINE NUMEROUS TIMES SINCE THIS EPISODE ALMOST 30 YRS AGO WITHOUT PROBLEM Family History 2 sisters : breast cancer Older brother: passed at 70 Social History Born in [place]. Lives in house alone. No smoking, drinking, no other drugs. Hospital Objective Objective Last Impressions Chest X-Ray 02/22/17 1453 Signed Impressions: Service Date/Time: February 15:06 - CONCLUSION: No acute cardiopulmonary abnormality is identified. Roldan Gutierrez MD Abdomen/Pelvis CT 02/22/17 0000 Signed Impressions: Service Date/Time: February 22:00 - CONCLUSION: Stable CT scan of the abdomen and pelvis. Bilateral renal cysts as described above. 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 Ureters beyond this are normal. Surgical clips were seen as noted in the region of the prostate. A few scattered Diverticuli of the colon. Degenerative changes of lower lumbar spine. Kt Burns MD Laboratory Tests - Abnormals Test 02/22/17 15:00 02/22/17 17:35 02/22/17 20:41 02/22/17 22:51 Red Blood Count 3.79 MIL/MM3 Hemoglobin 11.4 GM/DL 11.1 GM/DL Hematocrit 34.1 % 33.2 % Monocytes (%) (Auto) 9.7 % Blood Urea Nitrogen 20 MG/DL Random Glucose 132 MG/DL Total Protein 6.2 GM/DL Albumin 3.2 GM/DL Anion Gap 4 MEQ/L Creatine Kinase MB 5.1 NG/ML Troponin I LESS THAN 0.02 NG/ML Urine Color LIGHT-GREEN Test 02/23/17 03:48 02/23/17 10:38 Red Blood Count 3.59 MIL/MM3 Hemoglobin 11.0 GM/DL 11.2 GM/DL Hematocrit 32.2 % 33.2 % Monocytes (%) (Auto) 10.8 % Eosinophils (%) (Auto) 4.4 % Total Protein 5.5 GM/DL Albumin 2.8 GM/DL Calcium Level 8.2 MG/DL Chloride Level 109 MEQ/L Vital Signs 02/22/17 02/22/17 02/22/17 02/22/17 14:18 14:22 15:04 15:04 Pulse 55 Resp 18 18 18 B/P (MAP) 122/78 (93) Pulse Ox 97 98 98 O2 Delivery Room Air Room Air Room Air 02/22/17 02/22/17 02/22/17 02/22/17 15:38 18:40 19:00 19:45 Pulse 55 72 Resp 16 B/P (MAP) 133/59 (83) 131/78 (95) 129/63 (85) Pulse Ox 96 O2 Delivery Room Air FiO2 21 02/22/17 02/23/17 02/23/17 02/23/17 20:48 00:00 03:03 04:00 Temp 97.4 98.1 98.1 Pulse 78 64 72 70 Resp 18 16 16 B/P (MAP) 147/67 (93) 125/58 (80) 107/53 (71) Pulse Ox 99 96 95 02/23/17 02/23/17 02/23/17 04:01 08:00 12:04 Temp 97.7 97.8 Pulse 67 67 67 Resp 18 18 B/P (MAP) 120/60 (80) 126/58 (80) Pulse Ox 94 98 Physical exam O. CONSTITUTIONAL/GEN: normally nourished, in NAD. EYES: conjunctiva normal, PERRLA, EOMI. ENT: Mouth and pharynx normal. NECK: thyroid midline, carotids symmetrical. LUNGS: clear A-P, respiratory effort is normal. CARDIOVASCULAR: RR without murmur or gallop. No significant edema. GI/ABD: soft without masses, without organomegaly. : no CVA tenderness NEURO: No focal deficits. Gait is normal SKIN: color normal, no rashes noted. HEME/LYMPH: no bruising, petechia or significant adenopathy MUSC: back is normal in appearance. Extremities are normal in appearance. PSYCH/MENTAL STATUS: Alert and oriented x 3. Assessment Assessment: (1) Orthostatic hypotension Plan: He has received IVF and this appears to have resolved. He had not ambulated yet so we will have him ambulate with assistance with the nurses to make sure he is no longer symptomatic. Feel this this is the cause of his symptoms and thi sis likely due to the 1 day h/o emesis, nausea and loose stool - these symptoms have resolved so suspect this may have been a food related illness that has now resolved. (2) Dehydration Plan: labs and symptoms have resolved with IVF (3) Vomiting Plan: suspect related to food -- this has resolved. (4) Dysuria Plan: pt with ho prostate CA -- urine is [place] green which is likely from medications he has been taking for his bladder -- this sometimes obscures the resuts of the urinalysis -- to be on the safe side will start on cipro PO upon discharge and obtain urine culture. His urologist or PCP can follow this culture as an outpatient. (5) Dark stools Plan: H/H has been trended and has remained stable -_ there is no evidence of GI bleed at this time -- Assessment 86 year old male that is slightly malnourished with dehydration and symptomatic orthostatic hypotension from 1 day of emesis and diarrhea. His symptoms have resolved with IVF hydration. H/o prostate CA with radiation with dysuria and abnormal colored urine. PLAN PLAN plan as above patient was seen and dw the resident team -- Dr. Escalante, Dr. Schilling, Dr. Siddiqi, Dr. Bonilla Anticipate DC later today. Rachel Sheldon MD Feb 23, 2017 13:50
--- NOTE | 2017-02-23 15:09 | HHI.DCPOC ---
Discharge Care Plan Diagnosis: (1) Near syncope (2) Afib (3) Dark stools Goals to Promote Your Health To prevent worsening of your condition and complications, follow up with your PCP Dr. Davis within one week after hospital discharge and complete your course of antibiotics unless instructed to discontinue. Directions to Meet Your Goals Take your medications as prescribed Follow your dietary instruction Follow activity as directed Keep your appointments as scheduled Take your immunizations and boosters as scheduled If your symptoms worsen call your PCP, if no PCP go to Urgent Care Center or Emergency Room Smoking is Dangerous to Your Health. Avoid second hand smoke Call the 24-hour hour crisis hotline for domestic abuse at Milton Escalante MD R2 Feb 23, 2017 15:09
[2017-02-23] MEDS ORDERED: CIPR250T2 PO (15:11)
[2017-02-23 16:22] LABS: BLOOD, URINE SMALL (NEG); COMMENT (UR) CULT NOT INDICATED; CULTURE IF INDICATED CULT NOT INDICATED; GLUCOSE,URINE NEG (NEG); KETONE, URINE NEG (NEG); NITRITE,URINE NEG (NEG); PH, URINE 6.5 (5.0-8.5); URINE COLOR LIGHT-GREEN (YELLW/STRAW)
--- NOTE | 2017-02-23 22:03 | EKG ---
Date Performed: 02/22/2017 Time Performed: 15:03:55 PTAGE: 86 years EKG: SINUS BRADYCARDIA BORDERLINE ECG PREVIOUS TRACING : 08/02/2016 21.36 DOCTOR: Elton Walker Interpretating Date/Time 02/23/2017 21:38:28
[2017-02-24] MEDS ORDERED: ATENOLOL 50 MG TAB PO SCH (09:00)
== END 2017-02-23 17:02 | disposition home or self-care (01) ==
LOC: NEPE 12:56 → NEDA 17:30 → NEPGCP 20:01
PROVIDERS: ADMIT Family Medicine; ATTEND Family Medicine
DX: I95.1 Orthostatic hypotension (principal); E86.0 Dehydration; R11.2 Nausea with vomiting, unspecified; R30.0 Dysuria; E46 Unspecified protein-calorie malnutrition; B95.2 Enterococcus as the cause of diseases classified elsewhere; K92.1 Melena; I10 Essential (primary) hypertension; I48.91 Unspecified atrial fibrillation; Z85.46 Personal history of malignant neoplasm of prostate; K57.90 Diverticulosis of intestine, part unspecified, without perforation or abscess without bleeding; Z92.3 Personal history of irradiation
CPT/HCPCS: 71010; 74176; 80053; 81001; 82550; 82552; 83690; 83735; 84484; 85014; 85018; 85025; 85610; 86850; 86900; 86901; 87077; 87086; 87186; 93005; 96360; 96361; 96372; 99285; G0378; J1650; J7030

== ENCOUNTER 2017-04-05 19:47 | Emergency (ER) | payer OTHER, MEDICARE, BC ==
[~2017-04-05 19:47] MED LIST changes: -CHERSYP2 PO; +CIPR250T2 PO; -GABA300C5 PO; -[UNRECOGNIZED DRUG - CODE] PO
[2017-04-05 19:51] VITALS: BP 199/80; PULSE 71; RESP 16; TEMP 98.5; O2SAT 98
[2017-04-05 22:48] VITALS: BP 176/82; PULSE 72; RESP 16; O2SAT 97
[2017-04-05] MEDS ORDERED: TRAM50TA PO (22:52)
[2017-04-05 23:15] LABS: AUTOMATED NEUTROPHIL # 3.4 TH/MM3 (1.8-7.7); BASOPHIL # 0.1 TH/MM3 (0-0.2); BASOPHIL % 1.1 % (0.0-2.0); EOSINOPHIL # 0.1 TH/MM3 (0-0.4); EOSINOPHIL % 2.3 % (0.0-4.0); HEMO FLAGS DIFF FINAL; LYMPH % 26.4 % (9.0-44.0); LYMPHOCYTE # 1.5 TH/MM3 (1.0-4.8); MEAN CELL VOLUME 90.4 FL (80.0-100.0); MEAN CORPUSCULAR HEMOGLOBIN 29.9 PG (27.0-34.0); MONO % 11.5 % (0.0-8.0); NEUT % 58.7 % (16.0-70.0); PLATELET COUNT 157 TH/MM3 (150-450); RED BLOOD COUNT 3.87 MIL/MM3 (4.50-5.90); RED CELL DISTRIBUTION WIDTH 14.2 % (11.6-17.2); WHITE BLOOD COUNT 5.9 TH/MM3 (4.0-11.0)
[2017-04-05 23:26] LABS: ANION GAP 5 MEQ/L (5-15); AST (GOT) 23 U/L (15-37); BICARBONATE 29.8 MEQ/L (21.0-32.0); BLOOD UREA NITROGEN 17 MG/DL (7-18); CHLORIDE 103 MEQ/L (98-107); GLOMERULAR FILTRATION RATE 91 ML/MIN (>89); SODIUM (NA) 138 MEQ/L (136-145)
[2017-04-05 23:27] LABS: ALT (GPT) 20 U/L (12-78)
[2017-04-05 23:31] LABS: ALKALINE PHOSPHATASE 55 U/L (45-117); TOTAL BILIRUBIN ADULT 0.4 MG/DL (0.2-1.0)
[2017-04-05] MEDS ORDERED: IOHEXOL 350 MG/ML 10 ML VIAL (for RAD DIAG) IVCONTRAST ONE (23:44)
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
[2017-04-06] MEDS ORDERED: KETOROLAC TROMETHAMINE 30 MG/ML (IVP) VIAL IV PUSH ONE (00:15)
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
[2017-04-06] MEDS ORDERED: TYLE325T PO (00:53)
[2017-04-06 01:24] VITALS: BP 182/78; PULSE 56; RESP 16; O2SAT 96
--- NOTE | 2017-04-06 16:36 | EKG ---
Date Performed: 04/05/2017 Time Performed: 22:53:41 PTAGE: 86 years EKG: Sinus rhythm WITH OCCASIONAL SUPRAVENTRICULAR PREMATURE COMPLEXES Since previous tracing, no significant change n oted BORDERLINE ECG PREVIOUS TRACING : 02/22/2017 15.03 DOCTOR: aLyla Perkins Interpretating Date/Time 04/06/2017 16:35:06
== END 2017-04-06 01:46 | disposition home or self-care (01) ==
LOC: NEPC 19:47
DX: S20.20XA Contusion of thorax, unspecified, initial encounter (principal); R05 Cough; R94.31 Abnormal electrocardiogram [ECG] [EKG]; I10 Essential (primary) hypertension; Z86.2 Personal history of diseases of the blood and blood-forming organs and certain disorders involving the immune mechanism; Z87.39 Personal history of other diseases of the musculoskeletal system and connective tissue; Z86.79 Personal history of other diseases of the circulatory system; Z86.59 Personal history of other mental and behavioral disorders; Z87.19 Personal history of other diseases of the digestive system; V89.2XXA Person injured in unspecified motor-vehicle accident, traffic, initial encounter
CPT/HCPCS: 71260; 80053; 84484; 85025; 93005; 96374; 99285; J1885; Q9967

== ENCOUNTER 2017-06-03 07:32 | Inpatient (IN) | payer MEDICARE, BC ==
[2017-06-03] VITALS (7 sets, daily range): BP systolic 102–159; BP diastolic 52–71; PULSE 80–114; RESP 14–18; TEMP 98–99.7; O2SAT 95–100
[~2017-06-03] VITALS: Ht 167.6 cm; Wt 64.0 kg
[~2017-06-03 07:32] MED LIST changes: -CIPR250T2 PO; +TRAM50TA PO
--- NOTE | 2017-06-03 07:59 | PD ---
HPI Chief Complaint: Abdominal Pain Time Seen by Provider: 07:47 Travel History International Travel<30 days: No Contact w/Intl Traveler<30days: No Traveled to known affect area: No History of Present Illness HPI 86-year-old male presents with diffuse abdominal pain without other associated symptoms since last night. He states he's had this before but never seen a physician for it. He states he cut his hurts all over and is having difficulty giving me other history other than the above. PFSH Past Medical History Narrative Medical History obtained from records. Patient states he has prostate cancer in the past and can't think of his other history but was here recently. Anemia: Yes Arthritis: Yes (HANDS KNEES) Asthma: No Atrial Fibrillation: Yes Autoimmune Disease: No Blood Disorders: No Anxiety: Yes Depression: Yes Heart Rhythm Problems: Yes (A-FIB) Cancer: No Cardiovascular Problems: Yes High Cholesterol: No Chemotherapy: No Chest Pain: No Congestive Heart Failure: No COPD: No Cerebrovascular Accident: No Diabetes: No Diminished Hearing: No Endocrine: No Gastrointestinal Disorders: Yes (COLON POLYPS, DIVERTICULOSIS) GERD: Yes Genitourinary: No Headaches: Yes Hepatitis: No Hiatal Hernia: No Hypertension: Yes Immune Disorder: No Implanted Vascular Access Dvce: No Musculoskeletal: Yes Neurologic: No Psychiatric: Yes Reproductive: No Respiratory: No Immunizations Current: No Radiation Therapy: No Renal Failure: No Seizures: No Sleep Apnea: No Thyroid Disease: No Ulcer: Yes (GASTRIC) Tetanus Vaccination: < 5 Years Influenza Vaccination: Yes Past Surgical History Narrative Surgical From records Abdominal Surgery: Yes AICD: No Appendectomy: Yes Cardiac Surgery: No Cholecystectomy: Yes (2004) Ear Surgery: No Endocrine Surgery: No Eye Surgery: Yes (CATARACTS) Genitourinary Surgery: No Gynecologic Surgery: No Insulin Pump: No Joint Replacement: No Neurologic Surgery: Yes (LUMBAR LAMINECTOMY) Oral Surgery: Yes (DENTURES) Pacemaker: No Thoracic Surgery: No Tonsillectomy: Yes Other Surgery: Yes Social History Alcohol Use: No Tobacco Use: No Substance Use: No Allergies-Medications (Allergen,Severity, Reaction): Coded Allergies: benzocaine (Unverified Allergy, Severe, ALLERGY TO NOVOCAIN, 12/25/16) PT STATES THAT HE HAS HAD NOVOCAINE NUMEROUS TIMES SINCE THIS EPISODE ALMOST 30 YRS AGO WITHOUT PROBLEM bupivacaine (Unverified Allergy, Severe, ALLERGY TO NOVOCAIN, 12/25/16) PT STATES THAT HE HAS HAD NOVOCAINE NUMEROUS TIMES SINCE THIS EPISODE ALMOST 30 YRS AGO WITHOUT PROBLEM ethyl chloride (Unverified Allergy, Severe, ALLERGY TO NOVOCAIN, 12/25/16) PT STATES THAT HE HAS HAD NOVOCAINE NUMEROUS TIMES SINCE THIS EPISODE ALMOST 30 YRS AGO WITHOUT PROBLEM lidocaine (Unverified Allergy, Severe, ALLERGY TO NOVOCAIN, 12/25/16) PT STATES THAT HE HAS HAD NOVOCAINE NUMEROUS TIMES SINCE THIS EPISODE ALMOST 30 YRS AGO WITHOUT PROBLEM ropivacaine (Unverified Allergy, Severe, ALLERGY TO NOVOCAIN, 12/25/16) PT STATES THAT HE HAS HAD NOVOCAINE NUMEROUS TIMES SINCE THIS EPISODE ALMOST 30 YRS AGO WITHOUT PROBLEM Reported Meds & Prescriptions Reported Meds & Active Scripts Active Tylenol (Acetaminophen) 325 Mg Tab 1,000 Mg PO Q6H PRN Reported Tramadol (Tramadol HCl) 50 Mg Tab 50 Mg PO Q6H PRN Omeprazole 40 Mg Cap 40 Mg PO DAILY Tamsulosin (Tamsulosin HCl) 0.4 Mg Cap 0.4 Mg PO HS Vitamin B Complex (B-Complex Vitamins) 1 Tab 1 Tab PO DAILY Atenolol 50 Mg Tab 50 Mg PO EVERY OTHER DAY Review of Systems ROS Limitations: Poor Historian Except as stated in HPI: all other systems reviewed are Neg Physical Exam Exam Limitations: Poor Historian Narrative GENERAL: Well-nourished, well-developed patient. SKIN: Warm and dry. HEAD: Normocephalic and atraumatic. EYES: No injection or drainage. ENT: No nasal drainage noted. NECK: Supple, trachea midline. CARDIOVASCULAR: Regular rate and rhythm RESPIRATORY: Breath sounds equal bilaterally. No accessory muscle use. GASTROINTESTINAL: Abdomen soft, mild tenderness diffusely, nondistended. NEUROLOGICAL: Awake. Moves all extremities and sensory grossly within normal limits. Normal speech. Data Data Last Documented VS Vital Signs Date Time Temp Pulse Resp B/P (MAP) Pulse Ox O2 Delivery O2 Flow Rate FiO2 06/03/17 12:00 80 17 111/57 (75) 100 Room Air 06/03/17 07:49 98.3 Orders Orders Complete Blood Count With Diff (06/03/17 07:51) Comprehensive Metabolic Panel (06/03/17 07:51) Urinalysis - C+S If Indicated (06/03/17 07:51) Lipase (06/03/17 07:51) Ct Abd/Pel W Iv Contrast(Rout) (06/03/17 ) Iv Access Insert/Monitor (06/03/17 07:51) Iohexol 350 Inj (Omnipaque 350 Inj) (06/03/17 09:06) Sodium Chlorid 0.9% 500 Ml Inj (Ns 500 M (06/03/17 10:00) Urine Culture (06/03/17 10:30) Ceftriaxone Inj (Rocephin Inj) (06/03/17 12:15) Admit Order (Ed Use Only) (06/03/17 12:46) Labs Laboratory Tests Test 06/03/17 07:50 06/03/17 10:30 White Blood Count 9.2 TH/MM3 Red Blood Count 3.55 MIL/MM3 Hemoglobin 10.5 GM/DL Hematocrit 31.2 % Mean Corpuscular Volume 87.8 FL Mean Corpuscular Hemoglobin 29.6 PG Mean Corpuscular Hemoglobin Concent 33.8 % Red Cell Distribution Width 14.4 % Platelet Count 309 TH/MM3 Mean Platelet Volume 7.6 FL Neutrophils (%) (Auto) 74.8 % Lymphocytes (%) (Auto) 11.6 % Monocytes (%) (Auto) 12.3 % Eosinophils (%) (Auto) 0.2 % Basophils (%) (Auto) 1.1 % Neutrophils # (Auto) 6.8 TH/MM3 Lymphocytes # (Auto) 1.1 TH/MM3 Monocytes # (Auto) 1.1 TH/MM3 Eosinophils # (Auto) 0.0 TH/MM3 Basophils # (Auto) 0.1 TH/MM3 CBC Comment AUTO DIFF Differential Comment AUTO DIFF CONFIRMED Platelet Estimate NORMAL Platelet Morphology Comment NORMAL Red Cell Morphology Comment NORMAL Blood Urea Nitrogen 16 MG/DL Creatinine 1.15 MG/DL Random Glucose 123 MG/DL Total Protein 6.7 GM/DL Albumin 2.7 GM/DL Calcium Level 8.5 MG/DL Alkaline Phosphatase 74 U/L Aspartate Amino Transf (AST/SGOT) 13 U/L Alanine Aminotransferase (ALT/SGPT) 18 U/L Total Bilirubin 0.6 MG/DL Sodium Level 134 MEQ/L Potassium Level 4.3 MEQ/L Chloride Level 101 MEQ/L Carbon Dioxide Level 26.9 MEQ/L Anion Gap 6 MEQ/L Estimat Glomerular Filtration Rate 61 ML/MIN Lipase 90 U/L Urine Color LIGHT-GREEN Urine Turbidity TURBID Urine pH 6.0 Urine Specific Douglass 1.024 Urine Protein 30 mg/dL Urine Glucose (UA) NEG mg/dL Urine Ketones NEG mg/dL Urine Occult Blood MOD Urine Nitrite POS Urine Bilirubin NEG Urine Urobilinogen LESS THAN 2.0 MG/DL Urine Leukocyte Esterase LARGE Urine RBC /hpf Urine WBC /hpf Urine WBC Clumps MANY Urine Bacteria MANY /hpf Urine Mucus MOD /lpf Microscopic Urinalysis Comment CULTURE INDICATED MDM Medical Decision Making Medical Screen Exam Complete: Yes Emergency Medical Condition: Yes Medical Record Reviewed: Yes (past history confirmed) Interpretation(s) CBC & BMP Diagram 06/03/17 07:50 Total Protein 6.7, Albumin 2.7 L, Calcium Level 8.5, Alkaline Phosphatase 74, Aspartate Amino Transf (AST/SGOT) 13 L, Alanine Aminotransferase (ALT/SGPT) 18, Total Bilirubin 0.6 Last 24 hours Impressions Abdomen/Pelvis CT 06/03/17 0000 Signed Impressions: Service Date/Time: Saturday, June 03, 2017 08:57 - CONCLUSION: Abnormal enhancement of the left renal pelvis and proximal one third of the left ureter. This may represent inflammation from infection versus the presence of a transitional cell neoplasm. There is also circumferential wall thickening identified within the bladder which is greater than expected given the degree of distention. This can also be seen in the setting of cystitis, radiation treatment or neoplasm. No other concerning abnormalities are noted. Jinny Mosquera MD ua with uti Differential Diagnosis Diverticulitis, stone, UTI, gastritis Narrative Course Will check blood work, urinalysis, CT scan abdominal pelvis and reevaluate Went back to talk with patient and he recalls that he is now taking Bactrim for urinary tract infection and has had it a while when I informed he has one. We' ll give Rocephin and place in the hospital given age, CT findings and patient's statement that he is already on antibiotics for the above. Patient has no leukocytosis, renal failure and his vitals here are stable. Physician Communication Physician Communication dr willson agrees to admit Diagnosis Primary Impression: Pyelonephritis Admitting Information Admitting Physician Requests: Observation Nancy Cruz MD Jun 03, 2017 07:59
[2017-06-03 08:15] LABS: AUTOMATED NEUTROPHIL # 6.8 TH/MM3 (1.8-7.7); BASOPHIL # 0.1 TH/MM3 (0-0.2); BASOPHIL % 1.1 % (0.0-2.0); EOSINOPHIL % 0.2 % (0.0-4.0); HEMATOCRIT 31.2 % (39.0-51.0); HEMOGLOBIN 10.5 GM/DL (13.0-17.0); LYMPH % 11.6 % (9.0-44.0); LYMPHOCYTE # 1.1 TH/MM3 (1.0-4.8); MEAN CELL VOLUME 87.8 FL (80.0-100.0); MEAN CORPUSCULAR HEMOGLOBIN 29.6 PG (27.0-34.0); MEAN CORPUSCULAR HGB CONC 33.8 % (32.0-36.0); MEAN PLATELET VOLUME 7.6 FL (7.0-11.0); MONO % 12.3 % (0.0-8.0); MONOCYTE # 1.1 TH/MM3 (0-0.9); NEUT % 74.8 % (16.0-70.0); PLATELET COUNT 309 TH/MM3 (150-450); RED BLOOD COUNT 3.55 MIL/MM3 (4.50-5.90); RED CELL DISTRIBUTION WIDTH 14.4 % (11.6-17.2); WHITE BLOOD COUNT 9.2 TH/MM3 (4.0-11.0)
[2017-06-03 08:37] LABS: ALBUMIN 2.7 GM/DL (3.4-5.0); ALT (GPT) 18 U/L (12-78); AST (GOT) 13 U/L (15-37); BICARBONATE 26.9 MEQ/L (21.0-32.0); BLOOD UREA NITROGEN 16 MG/DL (7-18); CALCIUM 8.5 MG/DL (8.5-10.1); CHLORIDE 101 MEQ/L (98-107); CREATININE 1.15 MG/DL (0.60-1.30); GLOMERULAR FILTRATION RATE 61 ML/MIN (>89); GLUCOSE,RANDOM 123 MG/DL (74-106); SODIUM (NA) 134 MEQ/L (136-145)
[2017-06-03 08:38] LABS: ALKALINE PHOSPHATASE 74 U/L (45-117); TOTAL BILIRUBIN ADULT 0.6 MG/DL (0.2-1.0); TOTAL PROTEIN 6.7 GM/DL (6.4-8.2)
[2017-06-03] MEDS ORDERED: IOHEXOL 350 MG/ML 10 ML VIAL (for RAD DIAG) IVCONTRAST ONE (09:06)
--- NOTE | 2017-06-03 09:27 | RADRPT ---
EXAM DATE/TIME: 06/03/2017 08:57 [facility] COMPARISON: CT ABDOMEN & PELVIS W CONTRAST, July 31, 2016, 17:59. INDICATIONS : Abdominal pain. IV CONTRAST: 76 cc Omnipaque 350 (iohexol) IV ORAL CONTRAST: No oral contrast ingested. RADIATION DOSE: 4.54 CTDIvol (mGy) MEDICAL HISTORY : Diverticulitis. Hypertension. Carcinoma, prostate. SURGICAL HISTORY : Cholecystectomy. Appendectomy.Lumbar laminectomy ENCOUNTER: Initial ACUITY: 1 day PAIN SCALE: 6/10 LOCATION: Bilateral lower quadrant TECHNIQUE: Volumetric scanning of the abdomen and pelvis was performed. Using automated exposure control and ad justment of the mA and/or kV according to patient size, radiation dose was kept as low as reasonably achievable to obtain optimal diagnostic quality images. DICOM format image data is available electro nically for review and comparison. FINDINGS: LOWER LUNGS: The visualized lower lungs are clear. LIVER: Homogeneous density without lesion. There is no dilation of the biliary tree. No calcified gallston es. SPLEEN: Normal size without lesion. PANCREAS: Within normal limits. KIDNEYS: There is abnormal appearance of the left renal pelvis and proximal one third of the left ureter with enhancement of the wall of the renal pelvis and ureter which is a new finding as compared to the prio r exam. There is no evidence of distal obstructing lesion or stone. The bladder is incompletely diste nded but demonstrates uniform wall thickening which appears greater than expected given the degree of distention. The dominant cyst identified within the lower pole of the left kidney appears slightly d ecreased in size as compared to the prior exam. There are stable benign exophytic cysts involving the right kidney. No abnormalities are identified within the right kidney, no hydronephrosis stones or c oncerning renal mass. ADRENAL GLANDS: Within normal limits. VASCULAR: There is no aortic aneurysm. BOWEL/MESENTERY: The stomach, small bowel, and colon demonstrate no acute abnormality. There is no free intraperitone al air or fluid. ABDOMINAL WALL: Within normal limits. RETROPERITONEUM: There is no lymphadenopathy. BLADDER: Uniform circumferential wall thickening which is somewhat greater than expected given the degree of d istention. REPRODUCTIVE: Within normal limits. INGUINAL: There is no lymphadenopathy or hernia. MUSCULOSKELETAL: Within normal limits for patient age. No lytic or blastic lesion. CONCLUSION: Abnormal enhancement of the left renal pelvis and proximal one third of the left ureter. This may rep resent inflammation from infection versus the presence of a transitional cell neoplasm. There is also circumferential wall thickening identified within the bladder which is greater than expected given t he degree of distention. This can also be seen in the setting of cystitis, radiation treatment or vy plasm. No other concerning abnormalities are noted. Jinny Mosquera MD on June 03, 2017 at 9:16 Board Certified Radiologist. This report was verified electronically.
[2017-06-03] MEDS ORDERED: SODIUM CHLORID 0.9% 500 ML INJ 500 ML IV ONE (10:00)
[2017-06-03 12:02] LABS: BACTERIA, URINE MANY /hpf; BILIRUBIN, URINE NEG (NEG); BLOOD, URINE MOD (NEG); GLUCOSE,URINE NEG (NEG); KETONE, URINE NEG (NEG); MUCUS URINE MOD /lpf (OCC); NITRITE,URINE POS (NEG); URINE LEUKOCYTE ESTERASE LARGE (NEG); WHITE BLOOD CELL CLUMPS MANY
[2017-06-03 12:04] LABS: URINE COLOR LIGHT-GREEN (YELLW/STRAW)
[2017-06-03] MEDS ORDERED: cefTRIAXone INJ 1,000 MG in SODIUM CHLORIDE 0.9% INJ 100 ML IV ONE (12:15)
--- NOTE | 2017-06-03 16:18 | HHI.HP ---
[facility] Service [facility] Primary Care Physician Brenda Davis MD Admission Diagnosis acute cysttiis pyelonephritis Diagnoses: Chief Complaint: Lower abdominal pain dysuria Travel History International Travel<30 Days: No Contact w/Intl Traveler <30 Da: No Traveled to Known Affected Are: No History of Present Illness Patient is a very pleasant 86-year-old Malay male history of prostate cancer diagnosed last year ago underwent radiation therapy. Who came to the hospital as complaining of feverish chilly sensation . Yesterday morning complaining of generalized lower abdominal pain . Patient on further history states has been having urinary frequency and pain all throughout during urination "hurts so much". This has been going on for this has been going on for months and actually is followed by a urologist. Last week was seen by him and was given antibiotics name of which he doesn't recall 5 days with no help. Patient also states that color of urine is intermittent intermittently [place] green in color. This morning with worsening lower abdominal pain associated with fever sensation but no temperature documente and lower abdominal discomfort. This time also complained of some left-sided flank pain. Patient denies any nausea vomiting neck pain denies any bowel movement changes last bowel movement was yesterday. Review of Systems Constitutional: COMPLAINS OF: Fever Endocrine: DENIES: Heat/cold intolerance, Polydipsia, Polyuria, Polyphagia Eyes: DENIES: Blurred vision, Diplopia, Eye inflammation, Eye pain, Vision loss , Photosensitivity, Double Vision Ears, nose, mouth, throat: DENIES: Tinnitus, Hearing loss, Vertigo, Nasal discharge, Oral lesions, Throat pain, Hoarseness, Ear Pain, Running Nose, Epistaxis, Sinus Pain, Toothache, Odynophagia Respiratory: DENIES: Apneas, Cough, Snoring, Wheezing, Hemoptysis, Sputum production, Shortness of breath Cardiovascular: DENIES: Chest pain, Palpitations, Syncope, Dyspnea on Exertion , PND, Lower Extremity Edema, Orthopnea, Claudication Gastrointestinal: DENIES: Abdominal pain, Black stools, Bloody stools, Constipation, Diarrhea, Nausea, Vomiting, Difficulty Swallowing, Anorexia Genitourinary: COMPLAINS OF: Urinary frequency, Urgency (positive), DENIES: Sexual dysfunction, Urinary incontinence, Hematuria, Dysuria, Nocturia, Penile Discharge, Testicular Pain, Testicular Swelling Musculoskeletal: DENIES: Joint pain, Muscle aches, Stiffness, Joint Swelling, Back pain, Neck pain Integumentary: DENIES: Abnormal pigmentation, Nail changes, Pruritus, Rash Hematologic/lymphatic: DENIES: Bruising, Lymphadenopathy Immunologic/allergic: DENIES: Eczema, Urticaria Neurologic: DENIES: Abnormal gait, Headache, Localized weakness, Paresthesias, Seizures, Speech Problems, Tremor, Poor Balance Psychiatric: DENIES: Anxiety, Confusion, Mood changes, Depression, Hallucinations, Agitation, Suicidal Ideation, Homicidal Ideation, Delusions Past Family Social History Past Medical History History of prostate cancer diagnosed a year ago underwent radiation therapy History of atrial fibrillation History of diverticulosis next and her history of cysts chronic back and neck pain. Past Surgical History Bilateral inguinal hernia surgery History of questionable laminectomy Reported Medications Tramadol Omeprazole Flomax Vitamin B Atenolol Allergies: Coded Allergies: benzocaine (Unverified Allergy, Severe, ALLERGY TO NOVOCAIN, 12/25/16) PT STATES THAT HE HAS HAD NOVOCAINE NUMEROUS TIMES SINCE THIS EPISODE ALMOST 30 YRS AGO WITHOUT PROBLEM bupivacaine (Unverified Allergy, Severe, ALLERGY TO NOVOCAIN, 12/25/16) PT STATES THAT HE HAS HAD NOVOCAINE NUMEROUS TIMES SINCE THIS EPISODE ALMOST 30 YRS AGO WITHOUT PROBLEM ethyl chloride (Unverified Allergy, Severe, ALLERGY TO NOVOCAIN, 12/25/16) PT STATES THAT HE HAS HAD NOVOCAINE NUMEROUS TIMES SINCE THIS EPISODE ALMOST 30 YRS AGO WITHOUT PROBLEM lidocaine (Unverified Allergy, Severe, ALLERGY TO NOVOCAIN, 12/25/16) PT STATES THAT HE HAS HAD NOVOCAINE NUMEROUS TIMES SINCE THIS EPISODE ALMOST 30 YRS AGO WITHOUT PROBLEM ropivacaine (Unverified Allergy, Severe, ALLERGY TO NOVOCAIN, 12/25/16) PT STATES THAT HE HAS HAD NOVOCAINE NUMEROUS TIMES SINCE THIS EPISODE ALMOST 30 YRS AGO WITHOUT PROBLEM Family History Noncontributory Social History Denies smoking alcohol or substance abuse Patient lives by himself and is very independent with ADLs patient he walks every day Physical Exam Vital Signs Vital Signs Date Time Temp Pulse Resp B/P (MAP) Pulse Ox O2 Delivery O2 Flow Rate FiO2 06/03/17 15:52 99.1 06/03/17 12:00 80 17 111/57 (75) 100 Room Air 06/03/17 07:54 16 06/03/17 07:49 98.3 81 16 109/54 (72) 98 06/03/17 07:34 98.0 99 14 102/52 (69) 97 Physical Exam GENERAL: This is a well-nourished, well-developed patient, in no apparent distress. SKIN: No rashes, ecchymoses or lesions. Cool and dry. HEAD: Atraumatic. Normocephalic. No temporal or scalp tenderness. EYES: Pupils equal round and reactive. Extraocular motions intact. No scleral icterus. No injection or drainage. ENT: Nose without bleeding, purulent drainage or septal hematoma. Throat without erythema, very dry oral mucosa Airway patent. NECK: Trachea midline. No JVD or lymphadenopathy. Supple, nontender, no meningeal signs. CARDIOVASCULAR: Regular rate and rhythm without murmurs RESPIRATORY: Clear to auscultation. Breath sounds equal bilaterally. No wheezes , rales, or rhonchi. GASTROINTESTINAL: Abdomen soft, non-tender, nondistended. Positive tenderness on the palpation of the lower abdomen suprapubic area mild left CVA tenderness MUSCULOSKELETAL: Extremities without clubbing, cyanosis, or edema. No joint tenderness, effusion, or edema noted. No calf tenderness. Negative Homans sign bilaterally. NEUROLOGICAL: Awake and alert. Cranial nerves II through XII intact. Motor and sensory grossly within normal limits. Five out of 5 muscle strength in all muscle groups. Normal speech. Laboratory Laboratory Tests Test 06/03/17 07:50 06/03/17 10:30 White Blood Count 9.2 Red Blood Count 3.55 Hemoglobin 10.5 Hematocrit 31.2 Mean Corpuscular Volume 87.8 Mean Corpuscular Hemoglobin 29.6 Mean Corpuscular Hemoglobin Concent 33.8 Red Cell Distribution Width 14.4 Platelet Count 309 Mean Platelet Volume 7.6 Neutrophils (%) (Auto) 74.8 Lymphocytes (%) (Auto) 11.6 Monocytes (%) (Auto) 12.3 Eosinophils (%) (Auto) 0.2 Basophils (%) (Auto) 1.1 Neutrophils # (Auto) 6.8 Lymphocytes # (Auto) 1.1 Monocytes # (Auto) 1.1 Eosinophils # (Auto) 0.0 Basophils # (Auto) 0.1 CBC Comment AUTO DIFF Differential Comment AUTO DIFF CONFIRMED Platelet Estimate NORMAL Platelet Morphology Comment NORMAL Red Cell Morphology Comment NORMAL Blood Urea Nitrogen 16 Creatinine 1.15 Random Glucose 123 Total Protein 6.7 Albumin 2.7 Calcium Level 8.5 Alkaline Phosphatase 74 Aspartate Amino Transf (AST/SGOT) 13 Alanine Aminotransferase (ALT/SGPT) 18 Total Bilirubin 0.6 Sodium Level 134 Potassium Level 4.3 Chloride Level 101 Carbon Dioxide Level 26.9 Anion Gap 6 Estimat Glomerular Filtration Rate 61 Lipase 90 Urine Color LIGHT-GREEN Urine Turbidity TURBID Urine pH 6.0 Urine Specific [place] 1.024 Urine Protein 30 Urine Glucose (UA) NEG Urine Ketones NEG Urine Occult Blood MOD Urine Nitrite POS Urine Bilirubin NEG Urine Urobilinogen LESS THAN 2.0 Urine Leukocyte Esterase LARGE Urine RBC Urine WBC Urine WBC Clumps MANY Urine Bacteria MANY Urine Mucus MOD Microscopic Urinalysis Comment CULTURE INDICATED Date/Time Source Procedure Growth Status 06/03/17 10:30 Urine Clean Catch Urine Culture Pending Received Result Diagram: 06/03/17 0750 06/03/17 0750 Imaging Last Impressions Abdomen/Pelvis CT 06/03/17 0000 Signed Impressions: Service Date/Time: Saturday, June 03, 2017 08:57 - CONCLUSION: Abnormal enhancement of the left renal pelvis and proximal one third of the left ureter. This may represent inflammation from infection versus the presence of a transitional cell neoplasm. There is also circumferential wall thickening identified within the bladder which is greater than expected given the degree of distention. This can also be seen in the setting of cystitis, radiation treatment or neoplasm. No other concerning abnormalities are noted. Jinny Mosquera MD Caprini VTE Risk Assessment Caprini VTE Risk Assessment: No/Low Risk (score <= 1) Caprini Risk Assessment Model Point Value = 1 Point Value = 2 Point Value = 3 Point Value = 5 Age 41-60 Minor surgery BMI > 25 kg/m2 Swollen legs Varicose veins or History of unexplained or recurrent spontaneous Oral contraceptives or hormone replacement Sepsis (< 1 month) Serious lung disease, including pneumonia (< 1 month) Abnormal pulmonary function Acute myocardial infarction Congestive heart failure (< 1 month) History of inflammatory bowel disease Medical patient at bed rest Age 61-74 Arthroscopic surgery Major open surgery (> 45 min) Laparoscopic surgery (> 45 min) Malignancy Confined to bed (> 72 hours) Immobilizing plaster cast Central venous access Age >= 75 History of VTE Family history of VTE Factor V Leiden Prothrombin [id number] Lupus anticoagulant Anticardiolipin antibodies Elevated serum homocysteine Heparin-induced thrombocytopenia Other congenital or acquired thrombophilia Stroke (< 1 month) Elective arthroplasty Hip, pelvis, or leg fracture Acute spinal cord injury (< 1 month) Prophylaxis Regimen Total Risk Factor Score Risk Level Prophylaxis Regimen 0-1 Low Early ambulation 2 Moderate Order ONE of the following: *Sequential Compression Device (SCD) *Heparin 5000 units SQ BID 3-4 Higher Order ONE of the following medications: *Heparin 5000 units SQ TID *Enoxaparin/Lovenox 40 mg SQ daily (WT < 150 kg, CrCl > 30 mL/min) *Enoxaparin/Lovenox 30 mg SQ daily (WT < 150 kg, CrCl > 10-29 mL/min) *Enoxaparin/Lovenox 30 mg SQ BID (WT < 150 kg, CrCl > 30 mL/min) AND/OR *Sequential Compression Device (SCD) 5 or more Highest Order ONE of the following medications: *Heparin 5000 units SQ TID (Preferred with Epidurals) *Enoxaparin/Lovenox 40 mg SQ daily (WT < 150 kg, CrCl > 30 mL/min) *Enoxaparin/Lovenox 30 mg SQ daily (WT < 150 kg, CrCl > 10-29 mL/min) *Enoxaparin/Lovenox 30 mg SQ BID (WT < 150 kg, CrCl > 30 mL/min) AND *Sequential Compression Device (SCD) Assessment and Plan Assessment and Plan 86-year-old male presenting with Lower abdominal/suprapubic tenderness, + left CVA tenderness with dysuria/ pain frequency going on for months now Patient sounds very frustrated with this persistent pain and urinary symptoms Acute cystitis- Recurrent symptoms -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 we'll find out the name - Will give Percocet when necessary for pain Continue Flomax continue IVF Abnormal CT- possible transitional cell neoplasm- in the bladder vs inflammatory changes consider Urology consult in am- will let us know his urologist Acute Kidney injury - creatinine bumped up slightly to 1.15 from 0.8 continue IVF. patient also clinically dry BMP in am History of atrial fibrillation currently in sinus rhythm on exam Continue on his atenolol.- Patient states he takes only half tablet a day but doesn't sure of the milligram- start Atenolol at 25 mg daily get EKG.- sinus. continue ASA Continue on home meds- Omperazole, MVI CATALINA/ Up and ambulating Discussed Condition With patient Aliya Brantley MD Jun 03, 2017 16:18
[2017-06-03] MEDS ORDERED: ACETAMINOPHEN 325 MG TAB PO PRN (16:30)
[2017-06-03] MEDS: DEXT 5%-NACL 0.9% 1000 ML INJ 1,000 ML IV SCH (16:55)
[2017-06-03] MEDS: oxyCODONE/ACETAMINOPHEN 7.5 MG/325 MG TAB PO PRN (16:55)
[2017-06-03] MEDS: PHENAZOPYRIDINE HCL 200 MG TAB PO SCH (16:55)
[2017-06-03] MEDS: ATENOLOL 25 MG TAB PO SCH (19:11)
[2017-06-03] MEDS: TAMSULOSIN HCL 0.4 MG CAP PO SCH (21:21)
[2017-06-04] MEDS: PHENAZOPYRIDINE HCL 200 MG TAB PO SCH ×3 (02:45→17:22)
[2017-06-04 03:43] VITALS: BP 102/53; PULSE 73; RESP 18; TEMP 99.6; O2SAT 95
[2017-06-04] MEDS: DEXT 5%-NACL 0.9% 1000 ML INJ 1,000 ML IV SCH (06:11)
[2017-06-04 08:39] VITALS: BP 109/53; PULSE 68; RESP 18; TEMP 97.5; O2SAT 96
[2017-06-04] MEDS ORDERED: cefTRIAXone INJ 1,000 MG in SODIUM CHLORIDE 0.9% INJ 100 ML IV SCH (09:00)
[2017-06-04] MEDS: ATENOLOL 25 MG TAB PO SCH (09:00)
[2017-06-04 09:06] LABS: BICARBONATE 29.3 MEQ/L (21.0-32.0); CALCIUM 8.6 MG/DL (8.5-10.1); CREATININE 0.97 MG/DL (0.60-1.30)
--- NOTE | 2017-06-04 09:49 | HHI.PR ---
Subjective Remarks Follow up for acute cystitis. The patient reports symptoms slightly improved today. Still with dysuria and mild suprapubic pain. Denies fevers but does report occasional chills. He's tolerating oral intake. No nausea/vomiting. His urologist is Dr. Reilly who does not come to [facility]. Patient agrees to seen on -call urologist. Objective Vitals Vital Signs Date Time Temp Pulse Resp B/P (MAP) Pulse Ox O2 Delivery O2 Flow Rate FiO2 06/04/17 08:39 97.5 68 18 109/53 (71) 96 06/04/17 03:43 99.6 73 18 102/53 (69) 95 06/03/17 23:57 99.7 81 18 110/60 (77) 95 06/03/17 19:48 98.1 81 18 108/54 (72) 95 06/03/17 19:09 22 06/03/17 16:23 98.0 114 18 159/71 (100) 98 06/03/17 16:12 06/03/17 15:52 99.1 06/03/17 12:00 80 17 111/57 (75) 100 Room Air I/O 06/03/17 06/03/17 06/03/17 06/04/17 06/04/17 06/04/17 07:00 15:00 23:00 07:00 15:00 23:00 Intake Total 600 ml 480 ml Output Total 1000 ml Balance 600 ml -520 ml Intake Oral 480 ml IV Total 600 ml Output Urine Total 1000 ml # Voids 1 Result Diagram: 06/03/17 0750 06/04/17 0640 Imaging Last Impressions Abdomen/Pelvis CT 06/03/17 0000 Signed Impressions: Service Date/Time: Saturday, June 03, 2017 08:57 - CONCLUSION: Abnormal enhancement of the left renal pelvis and proximal one third of the left ureter. This may represent inflammation from infection versus the presence of a transitional cell neoplasm. There is also circumferential wall thickening identified within the bladder which is greater than expected given the degree of distention. This can also be seen in the setting of cystitis, radiation treatment or neoplasm. No other concerning abnormalities are noted. Jinny Msoquera MD Objective Remarks GENERAL: Well-nourished, well-developed pleasant elderly male patient in [facility]. SKIN: Warm and dry. No rash. HEENT: Normocephalic. Atraumatic. Pupils equal and round. Mucous membranes pink and moist. NECK: Supple. Trachea midline. CARDIOVASCULAR: Regular rate and rhythm. S1, S2 noted. No murmur appreciated. RESPIRATORY: No accessory muscle use. Clear to auscultation. Breath sounds equal bilaterally. GASTROINTESTINAL: Abdomen soft, non-tender, nondistended. Normoactive bowel sounds x4. MUSCULOSKELETAL: No obvious deformities. Extremities without clubbing, cyanosis , or edema. No CVA tenderness today. NEUROLOGICAL: Awake and alert. No obvious cranial nerve deficits. Motor grossly within normal limits. Normal speech. PSYCHIATRIC: Appropriate mood and affect; insight and judgment normal. Medications and IVs Current Medications Medications (Trade) Dose Ordered Sig/Lakshmi Route Start Time Stop Time Status Last Admin Dextrose/Sodium Chloride 1,000 ml @ 70 mls/hr [id number] IV 06/03/17 16:00 06/04/17 06:11 (Pyridium) 200 mg Q8H PO 06/03/17 17:00 06/05/17 16:59 06/04/17 10:18 (Percocet 7.5-325 Mg) 1 tab Q6H PRN PO 06/03/17 16:30 06/03/17 16:55 Ceftriaxone Sodium 1000 mg/ Sodium Chloride 100 ml @ 200 mls/hr Q24H IV 06/04/17 09:00 06/04/17 10:16 (Flomax) 0.4 mg HS PO 06/03/17 21:00 06/03/17 21:21 (Allbee C) 1 tab DAILY PO 06/04/17 09:00 06/04/17 10:18 (Protonix) 40 mg DAILY PO 06/04/17 09:00 06/04/17 10:17 (Tylenol) 650 mg Q4H PRN PO 06/03/17 16:30 (Tenormin) 25 mg DAILY PO 06/03/17 17:00 06/03/17 19:11 A/P Assessment and Plan 86-year-old male with history of prostate cancer s/p radiation, afib, diverticulosis, presents with lower abdominal/suprapubic pain, +left CVA tenderness with dysuria/pain frequency going on for months now Acute Cystitis: Recurrent symptoms, suspect secondary to UTI in combination 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 UA +UTI. -Continue antibiotics with IV Rocephin -Continue Pyridium 200 mg po q8h for 2 days, monitor for response -Continue flomax -Continue pain control with tylenol and percocet prn -S/p IVF, will discontinue for now as patient tolerating oral intake and JOSEPH resolved -Monitor urine culture, adjust antibiotics accordingly -Consult urologist, patient sees Dr. Reilly however does not come to [facility] , consult placed to Dr. Beltran -Seen by Dr. Beltran, agrees with above plan, no acute urological intervention necessary -Consult PT Abnormal CT- possible transitional cell neoplasm in the bladder vs inflammatory changes -Consulted urology as above, recommends outpatient f/up with Dr. Reilly later this week Acute Kidney injury - creatinine bumped up slightly to 1.15 from 0.8. -s/p IVF hydration -repeat BMP improved with Cr 0.97 -patient tolerating oral intake, will discontinue IVF -avoid nephrotoxins -repeat labs in am History of atrial fibrillation: currently in sinus rhythm on exam -Continue on his atenolol.- Patient states he takes only half tablet a day but doesn't sure of the milligram- start Atenolol at 25 mg daily -EKG reviewed, shows NSR -continue ASA Other chronic medical conditions stable, continue on home meds as appropriate. DVT Prophylaxis: teds/SCDs, ambulation Discharge Planning Likely can discharge tomorrow morning. Patient did not feel ready for discharge today, still symptomatic although improved. Awaiting urine culture results. PT consulted. Winsome Stover PA-C Jun 04, 2017 9:49 am
[2017-06-04] MEDS: PANTOPRAZOLE SOD 40 MG DELAYED RELEASE TAB PO SCH (10:17)
[2017-06-04] MEDS: VITAMIN B COMPLEX/VIT C TAB PO SCH (10:18)
[2017-06-04 12:03] VITALS: BP 102/56; PULSE 69; RESP 18; TEMP 98; O2SAT 95
--- NOTE | 2017-06-04 15:36 | PD.CONS ---
HPI Service Urology Consult Requested By Teresa Stover Reason for Consult CT scan concerning for neoplasm Primary Care Physician Brenda Davis MD Diagnosis: History of Present Illness 86 year-old gentleman with a history of prostate cancer who is status post recent radiation therapy and under the care of Dr. Ildefonso Reilly who presents with symptoms of feeling feverish and with lower abdominal pain. Preliminary evaluation included a CT scan which circumferential wall thickening of the urinary bladder as well as abnormal enhancement of the left renal pelvis and proximal left ureter. The patient was noted to have dilation of the left collecting system for quite some time as evident on prior imaging studies. Urinalysis was consistent with a urinary tract infection and the patient was administered Rocephin and Pyridium. The prostate cancer was diagnosed just over one year ago and was last evaluated by Dr. Reilly his local urologist within the past week for ongoing symptoms of dysuria and frequency and treated with tamsulosin and oral antibiotics. Urology consult is now placed regarding the abnormal CT findings. Review of Systems Constitutional: COMPLAINS OF: Fever, Chills Gastrointestinal: COMPLAINS OF: Abdominal pain (lower) Genitourinary: COMPLAINS OF: Urinary frequency, Urgency, DENIES: Hematuria Musculoskeletal: COMPLAINS OF: Back pain (left flank) Except as stated in HPI: all other systems reviewed are Neg Past Family Social History Past Medical History Prostate cancer Atrial fibrillation Diverticulosis Past Surgical History Status post radiation therapy for prostate cancer Status post bilateral inguinal herniorrhaphies Questional history lower back surgery Reported Medications Refer to EMR Allergies: Coded Allergies: benzocaine (Unverified Allergy, Severe, ALLERGY TO NOVOCAIN, 12/25/16) PT STATES THAT HE HAS HAD NOVOCAINE NUMEROUS TIMES SINCE THIS EPISODE ALMOST 30 YRS AGO WITHOUT PROBLEM bupivacaine (Unverified Allergy, Severe, ALLERGY TO NOVOCAIN, 12/25/16) PT STATES THAT HE HAS HAD NOVOCAINE NUMEROUS TIMES SINCE THIS EPISODE ALMOST 30 YRS AGO WITHOUT PROBLEM ethyl chloride (Unverified Allergy, Severe, ALLERGY TO NOVOCAIN, 12/25/16) PT STATES THAT HE HAS HAD NOVOCAINE NUMEROUS TIMES SINCE THIS EPISODE ALMOST 30 YRS AGO WITHOUT PROBLEM lidocaine (Unverified Allergy, Severe, ALLERGY TO NOVOCAIN, 12/25/16) PT STATES THAT HE HAS HAD NOVOCAINE NUMEROUS TIMES SINCE THIS EPISODE ALMOST 30 YRS AGO WITHOUT PROBLEM ropivacaine (Unverified Allergy, Severe, ALLERGY TO NOVOCAIN, 12/25/16) PT STATES THAT HE HAS HAD NOVOCAINE NUMEROUS TIMES SINCE THIS EPISODE ALMOST 30 YRS AGO WITHOUT PROBLEM Active Ordered Medications Refer to EMR Family History Reviewed and noncontributory Social History Denies tobacco, alcohol or intravenous drug abuse history Physical Exam Vital Signs Date Time Temp Pulse Resp B/P (MAP) Pulse Ox O2 Delivery O2 Flow Rate FiO2 06/04/17 12:03 98.0 69 18 102/56 (71) 95 06/04/17 08:39 97.5 68 18 109/53 (71) 96 06/04/17 03:43 99.6 73 18 102/53 (69) 95 06/03/17 23:57 99.7 81 18 110/60 (77) 95 06/03/17 19:48 98.1 81 18 108/54 (72) 95 06/03/17 19:09 22 06/03/17 16:23 98.0 114 18 159/71 (100) 98 06/03/17 16:12 06/03/17 15:52 99.1 Physical Exam GENERAL: This is a well-nourished, well-developed patient, in no apparent distress. SKIN: No rashes, ecchymoses or lesions. Cool and dry. HEAD: Atraumatic. Normocephalic. No temporal or scalp tenderness. EYES: Pupils equal round and reactive. Extraocular motions intact. No scleral icterus. No injection or drainage. ENT: Nose without bleeding, purulent drainage or septal hematoma. Throat without erythema, tonsillar hypertrophy or exudate. Uvula midline. Airway patent. NECK: Trachea midline. No JVD or lymphadenopathy. Supple, nontender, no meningeal signs. GASTROINTESTINAL: Abdomen soft, non-tender, nondistended. No hepato-splenomegaly , or palpable masses. No guarding. GENITOURINARY: Bladder not distended, no CVA tenderness MUSCULOSKELETAL: Extremities without clubbing, cyanosis, or edema. No joint tenderness, effusion, or edema noted. No calf tenderness. Negative Homans sign bilaterally. NEUROLOGICAL: Awake and alert. Cranial nerves II through XII intact. Motor and sensory grossly within normal limits. Five out of 5 muscle strength in all muscle groups. Normal speech. Lab results reviewed: Yes Laboratory Tests Test 06/04/17 06:40 Blood Urea Nitrogen 16 Creatinine 0.97 Random Glucose 115 Calcium Level 8.6 Sodium Level 136 Potassium Level 4.0 Chloride Level 100 Carbon Dioxide Level 29.3 Anion Gap 7 Estimat Glomerular Filtration Rate 74 Date/Time Source Procedure Growth Status 06/04/17 06:44 Blood Peripheral Aerobic Blood Culture Pending Received 06/04/17 06:44 Blood Peripheral Anaerobic Blood Culture Pending Received 06/03/17 10:30 Urine Clean Catch Urine Culture - Preliminary Gram Negative Sharif Resulted Result Diagram: 06/03/17 0750 06/04/17 0640 Personally reviewed images: Yes Imaging Last Impressions Abdomen/Pelvis CT 06/03/17 0000 Signed Impressions: Service Date/Time: Saturday, June 03, 2017 08:57 - CONCLUSION: Abnormal enhancement of the left renal pelvis and proximal one third of the left ureter. This may represent inflammation from infection versus the presence of a transitional cell neoplasm. There is also circumferential wall thickening identified within the bladder which is greater than expected given the degree of distention. This can also be seen in the setting of cystitis, radiation treatment or neoplasm. No other concerning abnormalities are noted. 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 Ildefonso Reilly later this week as scheduled. George Beltran MD Jun 04, 2017 15:36
[2017-06-04 16:23] VITALS: BP 139/63; PULSE 70; RESP 21; TEMP 98.9; O2SAT 96
--- NOTE | 2017-06-04 18:02 | EKG ---
Date Performed: 06/03/2017 Time Performed: 16:44:09 PTAGE: 86 years EKG: SINUS TACHYCARDIA POSSIBLE LEFT ATRIAL ENLARGEMENT Consider ANTEROSEPTAL MYOCARDIAL INFARCT ION-age Undeterminate. ABNORMAL ECG PREVIOUS TRACING : 04/05/2017 22.53 DOCTOR: Dawson De Santiago Interpretating Date/Time 06/04/2017 18:01:03
[2017-06-04 19:34] VITALS: BP 122/59; PULSE 71; RESP 18; TEMP 97.8; O2SAT 96
[2017-06-04] MEDS: TAMSULOSIN HCL 0.4 MG CAP PO SCH (22:23)
[2017-06-04 23:39] VITALS: BP 97/50; PULSE 69; RESP 18; TEMP 98.7; O2SAT 95
[2017-06-05] MEDS: PHENAZOPYRIDINE HCL 200 MG TAB PO SCH ×2 (01:53→09:50)
[2017-06-05 04:17] VITALS: BP 113/55; PULSE 77; RESP 18; TEMP 98.4; O2SAT 92
[2017-06-05 06:55] LABS: AUTOMATED NEUTROPHIL # 4.3 TH/MM3 (1.8-7.7); BASOPHIL % 0.5 % (0.0-2.0); EOSINOPHIL # 0.1 TH/MM3 (0-0.4); EOSINOPHIL % 1.2 % (0.0-4.0); HEMATOCRIT 30.5 % (39.0-51.0); HEMOGLOBIN 10.4 GM/DL (13.0-17.0); LYMPH % 18.3 % (9.0-44.0); LYMPHOCYTE # 1.2 TH/MM3 (1.0-4.8); MEAN CELL VOLUME 86.9 FL (80.0-100.0); MEAN CORPUSCULAR HEMOGLOBIN 29.7 PG (27.0-34.0); MEAN CORPUSCULAR HGB CONC 34.2 % (32.0-36.0); MONO % 12.3 % (0.0-8.0); MONOCYTE # 0.8 TH/MM3 (0-0.9); NEUT % 67.7 % (16.0-70.0); PLATELET COUNT 279 TH/MM3 (150-450); RED BLOOD COUNT 3.51 MIL/MM3 (4.50-5.90); RED CELL DISTRIBUTION WIDTH 14.4 % (11.6-17.2); WHITE BLOOD COUNT 6.3 TH/MM3 (4.0-11.0)
[2017-06-05 07:17] LABS: BICARBONATE 29.2 MEQ/L (21.0-32.0); CALCIUM 8.4 MG/DL (8.5-10.1); CREATININE 1.01 MG/DL (0.60-1.30)
[2017-06-05 08:21] VITALS: BP 116/55; PULSE 79; RESP 16; TEMP 97.5; O2SAT 94
[2017-06-05] MEDS ORDERED: ASP: Path resistant to other antimicrobials, culture proven PRN (09:45)
[2017-06-05] MEDS ORDERED: MISCELLANEOUS PHARMACY INFORMATION XX PRN (09:45)
[2017-06-05] MEDS: ATENOLOL 25 MG TAB PO SCH (09:50)
[2017-06-05] MEDS: oxyCODONE/ACETAMINOPHEN 7.5 MG/325 MG TAB PO PRN (09:51)
[2017-06-05] MEDS: PANTOPRAZOLE SOD 40 MG DELAYED RELEASE TAB PO SCH (09:51)
[2017-06-05] MEDS: VITAMIN B COMPLEX/VIT C TAB PO SCH (09:52)
[2017-06-05] MEDS: ERTAPENEM INJ 1,000 MG in SODIUM CHLORIDE 0.9% INJ 100 ML IV SCH (12:00)
[2017-06-05 12:20] VITALS: BP 108/53; PULSE 57; RESP 16; TEMP 97.5; O2SAT 97
--- NOTE | 2017-06-05 12:44 | HHI.PR ---
Subjective Remarks Follow-up visit acute ESBL urinary tract infection, dysuria. Patient seen and examined today lying in bed. Reports he continues to have mild suprapubic pain and dysuria. Denies any fevers, chills, nausea, vomiting, diarrhea. Discuss with patient results of microbiology. Objective Vitals Vital Signs Date Time Temp Pulse Resp B/P (MAP) Pulse Ox O2 Delivery O2 Flow Rate FiO2 06/05/17 12:20 97.5 57 16 108/53 (71) 97 06/05/17 11:36 22 06/05/17 08:21 97.5 79 16 116/55 (75) 94 06/05/17 04:17 98.4 77 18 113/55 (74) 92 06/04/17 23:39 98.7 69 18 97/50 (66) 95 06/04/17 19:34 97.8 71 18 122/59 (80) 96 06/04/17 16:23 98.9 70 21 139/63 (88) 96 I/O 06/04/17 06/04/17 06/04/17 06/05/17 06/05/17 06/05/17 07:00 15:00 23:00 07:00 15:00 23:00 Intake Total 480 ml Output Total 1000 ml 250 ml Balance -520 ml -250 ml Intake Oral 480 ml Output Urine Total 1000 ml 250 ml # Voids 2 Result Diagram: 06/05/17 0610 06/05/17 0610 Imaging Last Impressions Abdomen/Pelvis CT 06/03/17 0000 Signed Impressions: Service Date/Time: Saturday, June 03, 2017 08:57 - CONCLUSION: Abnormal enhancement of the left renal pelvis and proximal one third of the left ureter. This may represent inflammation from infection versus the presence of a transitional cell neoplasm. There is also circumferential wall thickening identified within the bladder which is greater than expected given the degree of distention. This can also be seen in the setting of cystitis, radiation treatment or neoplasm. No other concerning abnormalities are noted. Jinny Mosquera MD Objective Remarks GENERAL: This is a well-nourished, well-developed patient, in no apparent distress. SKIN: Warm and dry. Pale. HEENT: Normocephalic. Pupils equal round and reactive. Nose without bleeding. Airway patent. NECK: Trachea midline. CARDIOVASCULAR: Regular rate and rhythm without murmurs, gallops, or rubs. RESPIRATORY: Clear to auscultation. Breath sounds equal bilaterally. No wheezes , rales, or rhonchi. GASTROINTESTINAL: Abdomen soft, nondistended. Bowel Sounds normoactive x4. Her pubic area tenderness to palpation. MUSCULOSKELETAL: Extremities without clubbing, cyanosis, or edema. NEUROLOGICAL: Awake and alert. Oriented to time, place, person. No focal neuro deficit. Moves all extremities. Normal speech. A/P Problem List: (1) ESBL (extended spectrum beta-lactamase) producing bacteria infection ICD Code: A49.9 - Bacterial infection, unspecified; Z16.12 - Extended spectrum beta lactamase (ESBL) resistance Status: Acute (2) Pyelonephritis ICD Code: N12 - Tubulo-interstitial nephritis, not specified as acute or chronic Status: Acute Assessment and Plan Patient is a 86-year-old male with history of prostate cancer s/p radiation, afib, diverticulosis, presents with lower abdominal/suprapubic pain, +left CVA tenderness with dysuria/pain frequency going on for months now Acute Cystitis, ESBL UTI acute - Recurrent symptoms, suspect secondary to UTI in combination 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 UA +UTI. - CT of the abdomen and pelvis showed abnormal enhancement of the left renal pelvis and proximal one third of the left ureter. This may represent inflammation from infection versus the presence of transitional cell neoplasm. There is also circumferential wall thickening identified within the bladder which is greater than expected given the degree of distention. This can also be seen in the setting of cystitis, radiation treatment or neoplasm. No other concerning abnormalities noted. - Discontinue IV Rocephin, not sensitive to ESBL. Start ertapenem - Continue Pyridium 200 mg po q8h for 2 days, monitor for response - Continue flomax - Continue pain control with tylenol and percocet prn - Consult urologist, patient sees Dr. Reilly however does not come to [place], consult placed to Dr. Beltran. Seen by Dr. Beltran, agrees with above plan, no acute urological intervention necessary - Consult PT - Consult infectious disease - Will admit to inpatient. Contact isolation. Acute Kidney injury - creatinine bumped up slightly to 1.15 from 0.8. - s/p IVF hydration - Cr 0.97 --> 1.01 improved - patient tolerating oral intake, discontinue IVF - avoid nephrotoxins History of atrial fibrillation: currently in sinus rhythm on exam - Continue Atenolol at 25 mg daily - EKG reviewed, shows NSR - continue ASA Other chronic medical conditions stable, continue on home meds as appropriate. DVT Prophylaxis: teds/SCDs, ambulation Discharge Planning Plan to discharge home when cleared by ID. Patient may need outpatient IV infusion. Ric Hernandez [facility] Jun 05, 2017 12:44
[2017-06-05 15:59] VITALS: BP 108/51; PULSE 64; RESP 16; TEMP 97.7; O2SAT 94
--- NOTE | 2017-06-05 16:27 | PD.ID.CON ---
History of Present Illness Service ID Consult Requested By LAVERN Garcia Reason for Consult Evaluation and Mment of ESBL Complicated UTI Primary Care Physician Brenda Davis MD Diagnoses: History of Present Illness is a very pleasant 86-year-old [place] male with PMHx of prostate cancer diagnosed last year ago underwent radiation therapy. He presented to the hospital complaining of chills and h/o lower abdominal pain. He also complained of dysuria, frequency and pain during urination. This has been going on for this has been going on for months and actually is followed by a urologist. Last week was seen by him and was given antibiotics name of which he doesn't recall 5 days with no help. Patient has received multiple courses of antibiotics. Patient also states that color of urine is intermittent intermittently [place] green in color. On day of admission patient has left sided flank pain. Denies any GI symptoms Reports chills Blood cultures done on admission negative. Urine cultures positive for ESBL E.coli. Imaging s/o pyelo and cystitis. Symptoms c/w both. ID consulted for eval and Mment of ESBL complicated UTI. Review of Systems Constitutional: COMPLAINS OF: Chills, DENIES: Diaphoretic episodes, Fatigue, Fever, Weight gain, Weight loss, Dizziness, Change in appetite, Night Sweats Endocrine: DENIES: Heat/cold intolerance, Polydipsia, Polyuria, Polyphagia Eyes: DENIES: Blurred vision, Diplopia, Eye inflammation, Eye pain, Vision loss , Photosensitivity, Double Vision Ears, nose, mouth, throat: DENIES: Tinnitus, Hearing loss, Vertigo, Nasal discharge, Oral lesions, Throat pain, Hoarseness, Ear Pain, Running Nose, Epistaxis, Sinus Pain, Toothache, Odynophagia Respiratory: DENIES: Apneas, Cough, Snoring, Wheezing, Hemoptysis, Sputum production, Shortness of breath Cardiovascular: DENIES: Chest pain, Palpitations, Syncope, Dyspnea on Exertion , PND, Lower Extremity Edema, Orthopnea, Claudication Gastrointestinal: COMPLAINS OF: Abdominal pain, DENIES: Black stools, Bloody stools, Constipation, Diarrhea, Nausea, Vomiting, Difficulty Swallowing, Anorexia Genitourinary: DENIES: Sexual dysfunction, Urinary frequency, Urinary incontinence, Urgency, Hematuria, Dysuria, Nocturia, Penile Discharge, Testicular Pain, Testicular Swelling Musculoskeletal: DENIES: Joint pain, Muscle aches, Stiffness, Joint Swelling, Back pain, Neck pain Integumentary: DENIES: Abnormal pigmentation, Nail changes, Pruritus, Rash Hematologic/lymphatic: DENIES: Bruising, Lymphadenopathy Immunologic/allergic: DENIES: Eczema, Urticaria Neurologic: DENIES: Abnormal gait, Headache, Localized weakness, Paresthesias, Seizures, Speech Problems, Tremor, Poor Balance Psychiatric: DENIES: Anxiety, Confusion, Mood changes, Depression, Hallucinations, Agitation, Suicidal Ideation, Homicidal Ideation, Delusions Except as stated in HPI: all other systems reviewed are Neg Past Family Social History Allergies: Coded Allergies: benzocaine (Unverified Allergy, Severe, ALLERGY TO NOVOCAIN, 12/25/16) PT STATES THAT HE HAS HAD NOVOCAINE NUMEROUS TIMES SINCE THIS EPISODE ALMOST 30 YRS AGO WITHOUT PROBLEM bupivacaine (Unverified Allergy, Severe, ALLERGY TO NOVOCAIN, 12/25/16) PT STATES THAT HE HAS HAD NOVOCAINE NUMEROUS TIMES SINCE THIS EPISODE ALMOST 30 YRS AGO WITHOUT PROBLEM ethyl chloride (Unverified Allergy, Severe, ALLERGY TO NOVOCAIN, 12/25/16) PT STATES THAT HE HAS HAD NOVOCAINE NUMEROUS TIMES SINCE THIS EPISODE ALMOST 30 YRS AGO WITHOUT PROBLEM lidocaine (Unverified Allergy, Severe, ALLERGY TO NOVOCAIN, 12/25/16) PT STATES THAT HE HAS HAD NOVOCAINE NUMEROUS TIMES SINCE THIS EPISODE ALMOST 30 YRS AGO WITHOUT PROBLEM ropivacaine (Unverified Allergy, Severe, ALLERGY TO NOVOCAIN, 12/25/16) PT STATES THAT HE HAS HAD NOVOCAINE NUMEROUS TIMES SINCE THIS EPISODE ALMOST 30 YRS AGO WITHOUT PROBLEM Past Medical History History of prostate cancer diagnosed a year ago underwent radiation therapy History of atrial fibrillation History of diverticulosis next and her history of cysts chronic back and neck pain. Past Surgical History Bilateral inguinal hernia surgery History of questionable laminectomy Reported Medications Reported Meds & Active Scripts Active Reported Omeprazole 40 Mg Cap 40 Mg PO DAILY Tamsulosin (Tamsulosin HCl) 0.4 Mg Cap 0.4 Mg PO HS Vitamin B Complex (B-Complex Vitamins) 1 Tab 1 Tab PO DAILY Atenolol 50 Mg Tab 50 Mg PO EVERY OTHER DAY Active Ordered Medications Current Medications Medications (Trade) Dose Ordered Sig/Lakshmi Route Start Time Stop Time Status Last Admin (Percocet 7.5-325 Mg) 1 tab Q6H PRN PO 06/03/17 16:30 06/06/17 09:51 (Flomax) 0.4 mg HS PO 06/03/17 21:00 06/05/17 20:51 (Allbee C) 1 tab DAILY PO 06/04/17 09:00 06/06/17 09:46 (Protonix) 40 mg DAILY PO 06/04/17 09:00 06/06/17 09:46 (Tylenol) 650 mg Q4H PRN PO 06/03/17 16:30 (Tenormin) 25 mg DAILY PO 06/03/17 17:00 06/06/17 09:46 Ertapenem 1000 mg/ Sodium Chloride 100 ml @ 200 mls/hr Q24H IV 06/05/17 11:00 06/06/17 11:49 (Zofran Inj) 4 mg Q6HR PRN IV PUSH 06/06/17 10:00 06/06/17 10:27 Family History reviewed and NC to age. Social History Lives alone. Son lives in [place] and keeps in touch with him by phone. Sister in law checks on him too. No alcohol No smoking No illicit drugs. Physical Exam Vital Signs Vital Signs Date Time Temp Pulse Resp B/P (MAP) Pulse Ox O2 Delivery O2 Flow Rate FiO2 06/05/17 15:59 97.7 64 16 108/51 (70) 94 06/05/17 12:20 97.5 57 16 108/53 (71) 97 06/05/17 11:36 22 06/05/17 08:21 97.5 79 16 116/55 (75) 94 06/05/17 04:17 98.4 77 18 113/55 (74) 92 06/04/17 23:39 98.7 69 18 97/50 (66) 95 06/04/17 19:34 97.8 71 18 122/59 (80) 96 Physical Exam GENERAL: This is a well-nourished, well-developed patient, in no apparent distress. SKIN: No rashes, ecchymoses or lesions. Cool and dry. HEAD: Atraumatic. Normocephalic. No temporal or scalp tenderness. EYES: Pupils equal round and reactive. Extraocular motions intact. No scleral icterus. No injection or drainage. ENT: Nose without bleeding, purulent drainage or septal hematoma. Throat without erythema, tonsillar hypertrophy or exudate. Uvula midline. Airway patent. NECK: Trachea midline. Supple, nontender, no meningeal signs. CARDIOVASCULAR: Regular rate and rhythm without murmurs, gallops, or rubs. RESPIRATORY: Clear to auscultation. Breath sounds equal bilaterally. No wheezes , rales, or rhonchi. GASTROINTESTINAL: Abdomen soft, non distended. Supra pubic tenderness. MUSCULOSKELETAL: Extremities without clubbing, cyanosis, or edema. No joint tenderness, effusion, or edema noted. No calf tenderness. Negative Homans sign bilaterally. NEUROLOGICAL: Awake and alert. Cranial nerves II through XII intact. Motor and sensory grossly within normal limits. Five out of 5 muscle strength in all muscle groups. Normal speech. Psych cooperative IV line sites with no e.o infection Laboratory Laboratory Tests Test 06/05/17 06:10 White Blood Count 6.3 Red Blood Count 3.51 Hemoglobin 10.4 Hematocrit 30.5 Mean Corpuscular Volume 86.9 Mean Corpuscular Hemoglobin 29.7 Mean Corpuscular Hemoglobin Concent 34.2 Red Cell Distribution Width 14.4 Platelet Count 279 Mean Platelet Volume 8.0 Neutrophils (%) (Auto) 67.7 Lymphocytes (%) (Auto) 18.3 Monocytes (%) (Auto) 12.3 Eosinophils (%) (Auto) 1.2 Basophils (%) (Auto) 0.5 Neutrophils # (Auto) 4.3 Lymphocytes # (Auto) 1.2 Monocytes # (Auto) 0.8 Eosinophils # (Auto) 0.1 Basophils # (Auto) 0.0 CBC Comment DIFF FINAL Differential Comment Blood Urea Nitrogen 17 Creatinine 1.01 Random Glucose 107 Calcium Level 8.4 Sodium Level 137 Potassium Level 4.0 Chloride Level 102 Carbon Dioxide Level 29.2 Anion Gap 6 Estimat Glomerular Filtration Rate 70 Date/Time Source Procedure Growth Status 06/04/17 06:44 Blood Peripheral Aerobic Blood Culture - Preliminary NO GROWTH IN 1 DAY Resulted 06/04/17 06:44 Blood Peripheral Anaerobic Blood Culture - Preliminary NO GROWTH IN 1 DAY Resulted 06/03/17 10:30 Urine Clean Catch Urine Culture - Final Escherichia Coli Esbl Positive Complete Result Diagram: 06/05/17 0610 06/05/17 0610 Imaging Last Impressions Abdomen/Pelvis CT 06/03/17 0000 Signed Impressions: Service Date/Time: Saturday, June 03, 2017 08:57 - CONCLUSION: Abnormal enhancement of the left renal pelvis and proximal one third of the left ureter. This may represent inflammation from infection versus the presence of a transitional cell neoplasm. There is also circumferential wall thickening identified within the bladder which is greater than expected given the degree of distention. This can also be seen in the setting of cystitis, radiation treatment or neoplasm. No other concerning abnormalities are noted. Jinny Mosquera MD Assessment and Plan Assessment and Plan ESBL complicated UTI. Pyelonephritis Cystitis H/o prostate cancer Recs: Start Ertapenem IV (ASP ESBL) Follow cultures If blood cultures negative at [address] PICC and discharge patient home. marley roach pt. Tammie Gonzales MD Jun 05, 2017 16:27
[2017-06-05 20:07] VITALS: BP 130/60; PULSE 64; RESP 18; TEMP 97.9; O2SAT 98
[2017-06-05] MEDS: TAMSULOSIN HCL 0.4 MG CAP PO SCH (20:51)
[2017-06-05 23:47] VITALS: BP 111/55; PULSE 65; RESP 18; TEMP 99; O2SAT 95
[2017-06-06 02:58] VITALS: BP 113/54; PULSE 69; RESP 18; TEMP 98.8; O2SAT 94
[2017-06-06 07:40] VITALS: BP 116/55; PULSE 65; RESP 18; TEMP 98; O2SAT 95
[2017-06-06] MEDS: VITAMIN B COMPLEX/VIT C TAB PO SCH (09:46)
[2017-06-06] MEDS: PANTOPRAZOLE SOD 40 MG DELAYED RELEASE TAB PO SCH (09:46)
[2017-06-06] MEDS: ATENOLOL 25 MG TAB PO SCH (09:46)
[2017-06-06] MEDS: oxyCODONE/ACETAMINOPHEN 7.5 MG/325 MG TAB PO PRN (09:51)
[2017-06-06] MEDS ORDERED: ONDANSETRON HCL 4 MG/2 ML VIAL IV PUSH PRN (10:00)
[2017-06-06] MEDS: ERTAPENEM INJ 1,000 MG in SODIUM CHLORIDE 0.9% INJ 100 ML IV SCH (11:49)
[2017-06-06 12:20] VITALS: BP 107/54; PULSE 49; RESP 18; TEMP 97.6; O2SAT 92
--- NOTE | 2017-06-06 13:27 | HHI.PR ---
Subjective Remarks Follow-up visit acute ESBL urinary tract infection, dysuria. Patient seen and examined today lying in bed. States mild dysuria. Denies any fevers, chills, nausea, vomiting, diarrhea. Objective Vitals Vital Signs Date Time Temp Pulse Resp B/P (MAP) Pulse Ox O2 Delivery O2 Flow Rate FiO2 06/06/17 12:20 97.6 49 18 107/54 (71) 92 06/06/17 11:12 20 06/06/17 07:40 98.0 65 18 116/55 (75) 95 06/06/17 02:58 98.8 69 18 113/54 (73) 94 06/05/17 23:47 99.0 65 18 111/55 (73) 95 06/05/17 20:07 97.9 64 18 130/60 (83) 98 06/05/17 15:59 97.7 64 16 108/51 (70) 94 Result Diagram: 06/05/17 0610 06/05/17 0610 Imaging Last Impressions Abdomen/Pelvis CT 06/03/17 0000 Signed Impressions: Service Date/Time: Saturday, June 03, 2017 08:57 - CONCLUSION: Abnormal enhancement of the left renal pelvis and proximal one third of the left ureter. This may represent inflammation from infection versus the presence of a transitional cell neoplasm. There is also circumferential wall thickening identified within the bladder which is greater than expected given the degree of distention. This can also be seen in the setting of cystitis, radiation treatment or neoplasm. No other concerning abnormalities are noted. Jinny Mosquera MD Objective Remarks GENERAL: This is a well-nourished, well-developed patient, in no apparent distress. SKIN: Warm and dry. Pale. HEENT: Normocephalic. Pupils equal round and reactive. Nose without bleeding. Airway patent. NECK: Trachea midline. CARDIOVASCULAR: Regular rate and rhythm without murmurs, gallops, or rubs. RESPIRATORY: Clear to auscultation. Breath sounds equal bilaterally. No wheezes , rales, or rhonchi. GASTROINTESTINAL: Abdomen soft, nondistended. Bowel Sounds normoactive x4. Suprapubic area tenderness to palpation. MUSCULOSKELETAL: Extremities without clubbing, cyanosis, or edema. NEUROLOGICAL: Awake and alert. Oriented to time, place, person. No focal neuro deficit. Moves all extremities. Normal speech. A/P Problem List: (1) ESBL (extended spectrum beta-lactamase) producing bacteria infection ICD Code: A49.9 - Bacterial infection, unspecified; Z16.12 - Extended spectrum beta lactamase (ESBL) resistance Status: Acute (2) Pyelonephritis ICD Code: N12 - Tubulo-interstitial nephritis, not specified as acute or chronic Status: Acute Assessment and Plan Patient is a 86-year-old male with history of prostate cancer s/p radiation, afib, diverticulosis, presents with lower abdominal/suprapubic pain, +left CVA tenderness with dysuria/pain frequency going on for months now Acute Cystitis, ESBL UTI acute Generalized weakness - Recurrent symptoms, suspect secondary to UTI in combination 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 UA +UTI. - CT of the abdomen and pelvis showed abnormal enhancement of the left renal pelvis and proximal one third of the left ureter. This may represent inflammation from infection versus the presence of transitional cell neoplasm. There is also circumferential wall thickening identified within the bladder which is greater than expected given the degree of distention. This can also be seen in the setting of cystitis, radiation treatment or neoplasm. No other concerning abnormalities noted. - Discontinue IV Rocephin, not sensitive to ESBL. Started on ertapenem - Continue Pyridium 200 mg po q8h for 2 days, monitor for response - Continue flomax - Continue pain control with tylenol and percocet prn - Consult urologist, patient sees Dr. Reilly however does not come to [place], consult placed to Dr. Beltran. Seen by Dr. Beltran, agrees with above plan, no acute urological intervention necessary - Consult PT - Consult infectious disease. Recommends blood culture to be followed if negative PICC line placement, DC home with Nay (ertapenem) 2 weeks follow- up with Dr. Duque infectious disease in the outpatient. - Contact isolation. Acute Kidney injury - creatinine bumped up slightly to 1.15 from 0.8. - s/p IVF hydration - Cr 0.97 --> 1.01 improved - patient tolerating oral intake - avoid nephrotoxins History of atrial fibrillation: currently in sinus rhythm on exam - Continue Atenolol at 25 mg daily - EKG reviewed, shows NSR - continue ASA Other chronic medical conditions stable, continue on home meds as appropriate. DVT Prophylaxis: teds/SCDs, ambulation Discharge Planning Plan to discharge home tomorrow if patient has improved and PICC line has been placed. Will need home health care. Ric Hernandez Jun 06, 2017 1:27 pm
[2017-06-06 15:34] VITALS: BP 111/53; PULSE 64; RESP 18; TEMP 97.5; O2SAT 96
--- NOTE | 2017-06-06 16:07 | HHI.FF ---
Face to Face Verification Diagnosis: (1) ESBL (extended spectrum beta-lactamase) producing bacteria infection (2) Pyelonephritis (3) Afib Home Health Nursing Order: Medical education Signs/symptoms of disease process Medication education-adverse effect Nursing assessment with vital signs IV medication administration Home Health Aide Order: To Assist In: Bathing and personal care I have seen patient Joe Kelley on 06/06/17. My clinical findings support the need for the requested home health care services because: Deconditioned w/ increased weakness I certify that my clinical findings support that this patient is homebound because: Unable to use public transportation Ric Hernandez Jun 06, 2017 4:07 pm
--- NOTE | 2017-06-06 17:06 | HHI.IDPN ---
Subjective Subjective Remarks is a very pleasant 86-year-old [place] male with PMHx of prostate cancer diagnosed last year ago underwent radiation therapy. He presented to the hospital complaining of chills and h/o lower abdominal pain. He also complained of dysuria, frequency and pain during urination. This has been going on for this has been going on for months and actually is followed by a urologist. Last week was seen by him and was given antibiotics name of which he doesn't recall 5 days with no help. Patient has received multiple courses of antibiotics. Patient also states that color of urine is intermittent intermittently [place] green in color. On day of admission patient has left sided flank pain. Denies any GI symptoms Reports chills Blood cultures done on admission negative. Urine cultures positive for ESBL E.coli. Imaging s/o pyelo and cystitis. Symptoms c/w both. ID consulted for eval and Mment of ESBL complicated UTI. Overnight events reviewed No fevers No rash No diarrhea Antibiotics Ertapenem IV Lines Line sites with no e.o infection Past Medical History reviewed Allergies: Coded Allergies: benzocaine (Unverified Allergy, Severe, ALLERGY TO NOVOCAIN, 12/25/16) PT STATES THAT HE HAS HAD NOVOCAINE NUMEROUS TIMES SINCE THIS EPISODE ALMOST 30 YRS AGO WITHOUT PROBLEM bupivacaine (Unverified Allergy, Severe, ALLERGY TO NOVOCAIN, 12/25/16) PT STATES THAT HE HAS HAD NOVOCAINE NUMEROUS TIMES SINCE THIS EPISODE ALMOST 30 YRS AGO WITHOUT PROBLEM ethyl chloride (Unverified Allergy, Severe, ALLERGY TO NOVOCAIN, 12/25/16) PT STATES THAT HE HAS HAD NOVOCAINE NUMEROUS TIMES SINCE THIS EPISODE ALMOST 30 YRS AGO WITHOUT PROBLEM lidocaine (Unverified Allergy, Severe, ALLERGY TO NOVOCAIN, 12/25/16) PT STATES THAT HE HAS HAD NOVOCAINE NUMEROUS TIMES SINCE THIS EPISODE ALMOST 30 YRS AGO WITHOUT PROBLEM ropivacaine (Unverified Allergy, Severe, ALLERGY TO NOVOCAIN, 12/25/16) PT STATES THAT HE HAS HAD NOVOCAINE NUMEROUS TIMES SINCE THIS EPISODE ALMOST 30 YRS AGO WITHOUT PROBLEM Objective . Vital Signs Date Time Temp Pulse Resp B/P (MAP) Pulse Ox O2 Delivery O2 Flow Rate FiO2 06/06/17 15:34 97.5 64 18 111/53 (72) 96 06/06/17 12:20 97.6 49 18 107/54 (71) 92 06/06/17 11:12 20 06/06/17 07:40 98.0 65 18 116/55 (75) 95 06/06/17 02:58 98.8 69 18 113/54 (73) 94 06/05/17 23:47 99.0 65 18 111/55 (73) 95 06/05/17 20:07 97.9 64 18 130/60 (83) 98 . Laboratory Tests Test 06/05/17 06:10 White Blood Count 6.3 TH/MM3 Red Blood Count 3.51 MIL/MM3 Hemoglobin 10.4 GM/DL Hematocrit 30.5 % Mean Corpuscular Volume 86.9 FL Mean Corpuscular Hemoglobin 29.7 PG Mean Corpuscular Hemoglobin Concent 34.2 % Red Cell Distribution Width 14.4 % Platelet Count 279 TH/MM3 Mean Platelet Volume 8.0 FL Neutrophils (%) (Auto) 67.7 % Lymphocytes (%) (Auto) 18.3 % Monocytes (%) (Auto) 12.3 % Eosinophils (%) (Auto) 1.2 % Basophils (%) (Auto) 0.5 % Neutrophils # (Auto) 4.3 TH/MM3 Lymphocytes # (Auto) 1.2 TH/MM3 Monocytes # (Auto) 0.8 TH/MM3 Eosinophils # (Auto) 0.1 TH/MM3 Basophils # (Auto) 0.0 TH/MM3 CBC Comment DIFF FINAL Differential Comment Laboratory Tests Test 06/05/17 06:10 Blood Urea Nitrogen 17 MG/DL Creatinine 1.01 MG/DL Random Glucose 107 MG/DL Calcium Level 8.4 MG/DL Sodium Level 137 MEQ/L Potassium Level 4.0 MEQ/L Chloride Level 102 MEQ/L Carbon Dioxide Level 29.2 MEQ/L Anion Gap 6 MEQ/L Estimat Glomerular Filtration Rate 70 ML/MIN Microbiology Date/Time Source Procedure Growth Status 06/04/17 06:44 Blood Peripheral Aerobic Blood Culture - Preliminary NO GROWTH IN 2 DAYS Resulted 06/04/17 06:44 Blood Peripheral Anaerobic Blood Culture - Preliminary NO GROWTH IN 2 DAYS Resulted 06/04/17 06:40 Blood Peripheral Aerobic Blood Culture - Preliminary NO GROWTH IN 2 DAYS Resulted 06/04/17 06:40 Blood Peripheral Anaerobic Blood Culture - Preliminary NO GROWTH IN 2 DAYS Resulted Imaging Last Impressions Abdomen/Pelvis CT 06/03/17 0000 Signed Impressions: Service Date/Time: Saturday, June 03, 2017 08:57 - CONCLUSION: Abnormal enhancement of the left renal pelvis and proximal one third of the left ureter. This may represent inflammation from infection versus the presence of a transitional cell neoplasm. There is also circumferential wall thickening identified within the bladder which is greater than expected given the degree of distention. This can also be seen in the setting of cystitis, radiation treatment or neoplasm. No other concerning abnormalities are noted. Jinny Mosquera MD Physical Exam GENERAL: This is a well-nourished, well-developed patient, in no apparent distress. SKIN: No rashes, ecchymoses or lesions. Cool and dry. HEAD: Atraumatic. Normocephalic. No temporal or scalp tenderness. EYES: Pupils equal round and reactive. Extraocular motions intact. No scleral icterus. No injection or drainage. ENT: Nose without bleeding, purulent drainage or septal hematoma. Throat without erythema, tonsillar hypertrophy or exudate. Uvula midline. Airway patent. NECK: Trachea midline. Supple, nontender, no meningeal signs. CARDIOVASCULAR: Regular rate and rhythm without murmurs, gallops, or rubs. RESPIRATORY: Clear to auscultation. Breath sounds equal bilaterally. No wheezes , rales, or rhonchi. GASTROINTESTINAL: Abdomen soft, non distended. Supra pubic tenderness. MUSCULOSKELETAL: Extremities without clubbing, cyanosis, or edema. No joint tenderness, effusion, or edema noted. No calf tenderness. Negative Homans sign bilaterally. NEUROLOGICAL: Awake and alert. Cranial nerves II through XII intact. Motor and sensory grossly within normal limits. Five out of 5 muscle strength in all muscle groups. Normal speech. Psych cooperative IV line sites with no e.o infection Assessment & Plan Remarks ESBL complicated UTI. Pyelonephritis Cystitis H/o prostate cancer Recs: Continue Ertapenem IV (ASP ESBL) Follow cultures If blood cultures negative at [address] PICC and discharge patient home. PICC line consult placed. Infusion orders in chart. Needs ID follow up with to determine if extension of treatment needed. Dr.Reba Duque marley roach pt. Will sign off please call back if any change in clinical condition or questions. Tammie Gonzales MD Jun 06, 2017 17:06
[2017-06-06] MEDS ORDERED: EPIN1INJ21 IV PUSH (17:10)
[2017-06-06] MEDS ORDERED: SOLU250I IV PUSH (17:10)
[2017-06-06] MEDS ORDERED: INVA1INJ IV (17:10)
[2017-06-06] MEDS ORDERED: EPIN1INJ21 SQ (17:10)
--- NOTE | 2017-06-06 17:15 | HHI.FF ---
cc: Saundra Duque MD Infusion Therapy Location of Infusion Therapy: [facility] IV Infusion Order Patient Information Appointment Date: Jun 06, 2017 Patient Weight 62 kg Diagnosis: Diagnosis ESBL Pyelonephritis ESBL Cystitis Prostate cancer history Coded Allergies: benzocaine (Unverified Allergy, Severe, ALLERGY TO NOVOCAIN, 12/25/16) PT STATES THAT HE HAS HAD NOVOCAINE NUMEROUS TIMES SINCE THIS EPISODE ALMOST 30 YRS AGO WITHOUT PROBLEM bupivacaine (Unverified Allergy, Severe, ALLERGY TO NOVOCAIN, 12/25/16) PT STATES THAT HE HAS HAD NOVOCAINE NUMEROUS TIMES SINCE THIS EPISODE ALMOST 30 YRS AGO WITHOUT PROBLEM ethyl chloride (Unverified Allergy, Severe, ALLERGY TO NOVOCAIN, 12/25/16) PT STATES THAT HE HAS HAD NOVOCAINE NUMEROUS TIMES SINCE THIS EPISODE ALMOST 30 YRS AGO WITHOUT PROBLEM lidocaine (Unverified Allergy, Severe, ALLERGY TO NOVOCAIN, 12/25/16) PT STATES THAT HE HAS HAD NOVOCAINE NUMEROUS TIMES SINCE THIS EPISODE ALMOST 30 YRS AGO WITHOUT PROBLEM ropivacaine (Unverified Allergy, Severe, ALLERGY TO NOVOCAIN, 12/25/16) PT STATES THAT HE HAS HAD NOVOCAINE NUMEROUS TIMES SINCE THIS EPISODE ALMOST 30 YRS AGO WITHOUT PROBLEM Administer Medication Ertapenem 1 gram IV q 24 hours Start Treatment: Jun 06, 2017 Stop Treatment: Jun 20, 2017 Additional Information Venous access: Other (MIdline) Additional Instructions [x] Peripheral flush and dressing changes per protocol [x] 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 [] May leave port accessed during therapy. [] May leave peripheral site accessed for duration of therapy. [x] If patient has SOB or respiratory distress, check oxygen saturation. If less than 90% or clinical signs of respiratory distress, administer oxygen at 2 L/min. via nasal cannula and notify physician. [x] Anaphylaxis/Reaction orders: * Stop infusion. * Keep IV line open with saline flush. * Notify physician. * Monitor vital signs every 15 minutes until symptoms resolve. * Check Oxygen saturation; Oxygen at 2 L/min. via nasal cannula if less than 90% or clinical signs of respiratory distress. * Administer diphenhydramine (Benadryl) 25 mg IV STAT, (unless patient has received as pre-med). May repeat once, if necessary. * Solu-Cortef 250 mg IVP over 30-60 seconds, use 100 mg vials for each dissolution. * Epinephrine (1mg/1 ml) 0.3 mg subcutaneously or IVP now with any signs of respiratory distress. * Check with physician for new additional pre-med orders if patient is re- challenged or re-treated. [x] May remove PICC line when treatment complete, after confirming with Physician. [x] If the patient is admitted to the hospital, the ED, or transferred via [facility] , complete transfer form including medication reconciliation order sheet. Laboratory Tests Weekly Labs: CBC w/diff, Creatinine, CRP, LFT's (Hepatic function test) Additional Information Please draw weekly labs and fax to following number and call with abnormals, change in clinical condition or problems to: Dr.Reba Duque or or covering ID Physician Follow up appt: Patient to schedule follow up appt with Dr.Reba Duque within 10 days post discharge. Follow up with PCP Follow up with other MDs as planned. Counseling: Counseled about medication side effects Counseled about PICC line care and hand hygiene. Tammie Gonzales MD Jun 06, 2017 17:15
[2017-06-06 19:14] VITALS: BP 114/56; PULSE 61; RESP 18; TEMP 97.9; O2SAT 94
[2017-06-06] MEDS: TAMSULOSIN HCL 0.4 MG CAP PO SCH (20:08)
[2017-06-07 04:51] VITALS: BP 103/55; PULSE 53; RESP 17; TEMP 97.7; O2SAT 96
[2017-06-07 08:00] VITALS: BP 107/55; PULSE 63; RESP 18; TEMP 97.5; O2SAT 96
[2017-06-07] MEDS: ATENOLOL 25 MG TAB PO SCH (08:34)
[2017-06-07] MEDS: PANTOPRAZOLE SOD 40 MG DELAYED RELEASE TAB PO SCH (08:34)
[2017-06-07] MEDS: VITAMIN B COMPLEX/VIT C TAB PO SCH (08:34)
[2017-06-07] MEDS: oxyCODONE/ACETAMINOPHEN 7.5 MG/325 MG TAB PO PRN (08:39)
[2017-06-07] MEDS: ERTAPENEM INJ 1,000 MG in SODIUM CHLORIDE 0.9% INJ 100 ML IV SCH (10:30)
--- NOTE | 2017-06-07 11:27 | HHI.PR ---
Subjective Remarks Follow up with Urosepsis 06/07/17-patient seen and examined, No acute event overnight. Midline was placed this AM. Afebrile Objective Vitals Vital Signs Date Time Temp Pulse Resp B/P (MAP) Pulse Ox O2 Delivery O2 Flow Rate FiO2 06/07/17 08:00 97.5 63 18 107/55 (72) 96 06/07/17 04:51 97.7 53 17 103/55 (71) 96 06/06/17 19:14 97.9 61 18 114/56 (75) 94 06/06/17 15:34 97.5 64 18 111/53 (72) 96 06/06/17 12:20 97.6 49 18 107/54 (71) 92 I/O 06/06/17 06/06/17 06/06/17 06/07/17 06/07/17 06/07/17 07:00 15:00 23:00 07:00 15:00 23:00 Intake Total 120 ml Balance 120 ml Intake Oral 120 ml # Voids 1 Result Diagram: 06/05/17 0610 06/05/17 0610 Imaging Last Impressions Abdomen/Pelvis CT 06/03/17 0000 Signed Impressions: Service Date/Time: Saturday, June 03, 2017 08:57 - CONCLUSION: Abnormal enhancement of the left renal pelvis and proximal one third of the left ureter. This may represent inflammation from infection versus the presence of a transitional cell neoplasm. There is also circumferential wall thickening identified within the bladder which is greater than expected given the degree of distention. This can also be seen in the setting of cystitis, radiation treatment or neoplasm. No other concerning abnormalities are noted. Jinny Mosquera MD Objective Remarks GENERAL: NAD SKIN: Warm and dry. HEAD: Normocephalic. EYES: No scleral icterus. No injection or drainage. NECK: Supple, trachea midline. No JVD or lymphadenopathy. CARDIOVASCULAR: Regular rate and rhythm without murmurs, gallops, or rubs. RESPIRATORY: Breath sounds equal bilaterally. No accessory muscle use. GASTROINTESTINAL: Abdomen soft, non-tender, nondistended. MUSCULOSKELETAL: No cyanosis, or edema. Midline to RUE BACK: Nontender without obvious deformity. No CVA tenderness. 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 UA +UTI. - s/p IV Rocephin, not sensitive to ESBL. Started on ertapenem - Continue Pyridium 200 mg po q8h for 2 days, monitor for response - Continue flomax - Continue pain control with tylenol and percocet prn - Seen by Dr. Beltran, agrees with above plan, no acute urological intervention necessary - PT to treat and eval - DC home with Invanz (ertapenem) 2 weeks follow-up with Dr. Duque infectious disease in the outpatient. Acute Kidney injury - creatinine bumped up slightly to 1.15 from 0.8. - s/p IVF hydration - Cr 0.97 --> 1.01 improved - avoid nephrotoxins History of atrial fibrillation - Continue Atenolol at 25 mg daily - EKG reviewed, shows NSR - continue ASA Other chronic medical conditions stable, continue on home meds as appropriate. DVT Prophylaxis: teds/SCDs, ambulation Dave Harp MD Jun 07, 2017 11:27
--- NOTE | 2017-06-07 11:32 | HHI.DS ---
Discharge Summary Admission Date Jun 05, 2017 at 13:56 Discharge Date: Jun 07, 2017 Admitting Diagnosis acute cysttiis pyelonephritis (1) ESBL (extended spectrum beta-lactamase) producing bacteria infection ICD Code: A49.9 - Bacterial infection, unspecified; Z16.12 - Extended spectrum beta lactamase (ESBL) resistance Status: Acute (2) Pyelonephritis ICD Code: N12 - Tubulo-interstitial nephritis, not specified as acute or chronic Status: Acute Procedures None Brief History - From Admission Patient is a very pleasant 86-year-old [place] male history of prostate cancer diagnosed last year ago underwent radiation therapy. Who came to the hospital as complaining of feverish chilly sensation . Yesterday morning complaining of generalized lower abdominal pain . Patient on further history states has been having urinary frequency and pain all throughout during urination "hurts so much". This has been going on for this has been going on for months and actually is followed by a urologist. Last week was seen by him and was given antibiotics name of which he doesn't recall 5 days with no help. Patient also states that color of urine is intermittent intermittently [place] green in color. This morning with worsening lower abdominal pain associated with fever sensation but no temperature documente and lower abdominal discomfort. This time also complained of some left-sided flank pain. Patient denies any nausea vomiting neck pain denies any bowel movement changes last bowel movement was yesterday. CBC/BMP: 06/05/17 0610 06/05/17 0610 Significant Findings Laboratory Tests Test 06/05/17 06:10 Red Blood Count 3.51 MIL/MM3 (4.50-5.90) Hemoglobin 10.4 GM/DL (13.0-17.0) Hematocrit 30.5 % (39.0-51.0) Monocytes (%) (Auto) 12.3 % (0.0-8.0) Random Glucose 107 MG/DL (74-106) Calcium Level 8.4 MG/DL (8.5-10.1) Estimat Glomerular Filtration Rate 70 ML/MIN (>89) Imaging Last Impressions Abdomen/Pelvis CT 06/03/17 0000 Signed Impressions: Service Date/Time: Saturday, June 03, 2017 08:57 - CONCLUSION: Abnormal enhancement of the left renal pelvis and proximal one third of the left ureter. This may represent inflammation from infection versus the presence of a transitional cell neoplasm. There is also circumferential wall thickening identified within the bladder which is greater than expected given the degree of distention. This can also be seen in the setting of cystitis, radiation treatment or neoplasm. No other concerning abnormalities are noted. Jinny Mosquera MD PE at Discharge GENERAL: NAD SKIN: Warm and dry. HEAD: Normocephalic. EYES: No scleral icterus. No injection or drainage. NECK: Supple, trachea midline. No JVD or lymphadenopathy. CARDIOVASCULAR: Regular rate and rhythm without murmurs, gallops, or rubs. RESPIRATORY: Breath sounds equal bilaterally. No accessory muscle use. GASTROINTESTINAL: Abdomen soft, non-tender, nondistended. MUSCULOSKELETAL: No cyanosis, or edema. Midline to RUE BACK: Nontender without obvious deformity. No CVA tenderness. Hospital Course while in hospital, patient was treated for: Acute Cystitis, ESBL UTI acute Generalized weakness - s/p IV Rocephin, not sensitive to ESBL. Started on ertapenem - Treated with Pyridium 200 mg po q8h for 2 days - Treated with Flomax - Treated with pain control with Tylenol and Percocet prn - Seen by Dr. Beltran, agrees with above plan, no acute urological intervention necessary - PT to treat and eval - DC home with Nay (ertapenem) 2 weeks follow-up Dr. Duque infectious disease in the outpatient. Acute Kidney injury - creatinine bumped up slightly to 1.15 from 0.8. - s/p IVF hydration - Cr 0.97 --> 1.01 improved - avoid nephrotoxins History of atrial fibrillation - Treated with Atenolol at 25 mg daily, aspirin - EKG reviewed, shows NSR Other chronic medical conditions stable, continued on home meds as appropriate. DVT Prophylaxis: teds/SCDs, ambulation Pt Condition on Discharge: Good Discharge Disposition: Disch w/ Home Health Serv Discharge Time: > 30 minutes Discharge Instructions DIET: Follow Instructions for: Heart Healthy Diet Activities you can perform: Regular-No Restrictions Follow up Referrals: Infectious Disease with Saundra Duque PCP Follow-up - 2 Weeks New Medications: Epinephrine Inj (Epinephrine Inj) 1 Mg/Ml (1 Ml) Inj 0.3 MG IV PUSH ONCE PRN for ALLERGIC REACTION, #1 VIAL Epinephrine Inj (Epinephrine Inj) 1 Mg/Ml (1 Ml) Inj 0.3 MG SQ ONCE PRN for ALLERGIC REACTION, #1 VIAL Give with any signs of respiratory distress. Ertapenem Inj (Invanz Inj) 1 Gm Addvial 1 GM IV Q24H for Infection for 14 Days, INJECTION 0 Refills ADMINISTER IN 100ML NS Hydrocortisone Inj (Solu-Cortef Inj) 250 Mg/2 Ml Inj 250 MG IV PUSH ONCE PRN for ALLERGIC REACTION, #1 VIAL 0 Refills Give over 30-60 seconds. Continued Medications: Atenolol (Atenolol) 50 Mg Tab 50 MG PO EVERY OTHER DAY for Blood Pressure Management, TAB 0 Refills B-Complex Vitamins (Vitamin B Complex) 1 Tab 1 TAB PO DAILY Omeprazole (Omeprazole) 40 Mg Cap 40 MG PO DAILY, #30 CAP 0 Refills Tamsulosin (Tamsulosin) 0.4 Mg Cap 0.4 MG PO HS for Manage Prostate Problems, #30 CAP 0 Refills Dave Harp MD Jun 07, 2017 11:32
[2017-06-07 12:00] VITALS: BP 110/69; PULSE 65; RESP 18; TEMP 97.8; O2SAT 98
[2017-06-07 16:00] VITALS: BP 112/79; PULSE 69; RESP 18; TEMP 97.8; O2SAT 99
[2017-06-07 20:00] VITALS: BP 114/55; PULSE 51; RESP 20; TEMP 97.5; O2SAT 97
[2017-06-07] MEDS: TAMSULOSIN HCL 0.4 MG CAP PO SCH (21:47)
[2017-06-08] VITALS: BP 110/73; PULSE 57; RESP 18; TEMP 97; O2SAT 98
[2017-06-08 04:00] VITALS: BP 117/56; PULSE 59; RESP 18; TEMP 98; O2SAT 93
[2017-06-08] MEDS: ATENOLOL 25 MG TAB PO SCH (08:52)
[2017-06-08] MEDS: VITAMIN B COMPLEX/VIT C TAB PO SCH (08:53)
[2017-06-08] MEDS: PANTOPRAZOLE SOD 40 MG DELAYED RELEASE TAB PO SCH (08:53)
[2017-06-08 08:58] VITALS: BP 111/56; PULSE 54; RESP 16; TEMP 98.2; O2SAT 96
--- NOTE | 2017-06-08 10:43 | HHI.PR ---
Subjective Remarks Follow up with Urosepsis 06/07/17-patient seen and examined, No acute event overnight. Midline was placed this AM. Afebrile 06/08/17-patient seen and examined, afebrile and no chest pain or shortness of breath. Patient is very upset that he hasn't been discharged yet Objective Vitals Vital Signs Date Time Temp Pulse Resp B/P (MAP) Pulse Ox O2 Delivery O2 Flow Rate FiO2 06/08/17 08:58 98.2 54 16 111/56 (74) 96 06/08/17 04:00 98.0 59 18 117/56 (76) 93 06/08/17 00:00 97.0 57 18 110/73 (85) 98 06/07/17 20:00 97.5 51 20 114/55 (74) 97 06/07/17 16:00 97.8 69 18 112/79 (90) 99 06/07/17 12:00 97.8 65 18 110/69 (83) 98 I/O 06/07/17 06/07/17 06/07/17 06/08/17 06/08/17 06/08/17 07:00 15:00 23:00 07:00 15:00 23:00 Intake Total 120 ml 100 ml Output Total 875 ml Balance 120 ml 100 ml -875 ml Intake Oral 120 ml IV Total 100 ml Output Urine Total 875 ml # Voids 1 1 Result Diagram: 06/05/17 0610 06/05/17 0610 Imaging Last Impressions Abdomen/Pelvis CT 06/03/17 0000 Signed Impressions: Service Date/Time: Saturday, June 03, 2017 08:57 - CONCLUSION: Abnormal enhancement of the left renal pelvis and proximal one third of the left ureter. This may represent inflammation from infection versus the presence of a transitional cell neoplasm. There is also circumferential wall thickening identified within the bladder which is greater than expected given the degree of distention. This can also be seen in the setting of cystitis, radiation treatment or neoplasm. No other concerning abnormalities are noted. Jinny Mosquera MD Objective Remarks GENERAL: NAD SKIN: Warm and dry. HEAD: Normocephalic. EYES: No scleral icterus. No injection or drainage. NECK: Supple, trachea midline. No JVD or lymphadenopathy. CARDIOVASCULAR: Regular rate and rhythm without murmurs, gallops, or rubs. RESPIRATORY: Breath sounds equal bilaterally. No accessory muscle use. GASTROINTESTINAL: Abdomen soft, non-tender, nondistended. MUSCULOSKELETAL: No cyanosis, or edema. Midline to RUE BACK: Nontender without obvious deformity. No CVA tenderness. 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 UA +UTI. - s/p IV Rocephin, not sensitive to ESBL. Started on ertapenem - Continue Pyridium 200 mg po q8h for 2 days, monitor for response - Continue flomax - Continue pain control with tylenol and percocet prn - Seen by Dr. Beltran, agrees with above plan, no acute urological intervention necessary - PT to treat and eval - DC home with Nay (ertapenem) 2 weeks follow-up with Dr. Duque infectious disease in the outpatient. Acute Kidney injury - creatinine bumped up slightly to 1.15 from 0.8. - s/p IVF hydration - Cr 0.97 --> 1.01 improved - avoid nephrotoxins History of atrial fibrillation - Continue Atenolol at 25 mg daily - EKG reviewed, shows NSR - continue ASA Other chronic medical conditions stable, continue on home meds as appropriate. DVT Prophylaxis: teds/SCDs, ambulation Continue with current treatment Dave Harp MD Jun 08, 2017 10:42
[2017-06-08] MEDS: ERTAPENEM INJ 1,000 MG in SODIUM CHLORIDE 0.9% INJ 100 ML IV SCH (11:57)
[2017-06-08 12:00] VITALS: BP 120/72; PULSE 63; RESP 18; TEMP 98.4; O2SAT 99
== END 2017-06-08 14:33 | disposition home health service (06) | DRG 699 ==
LOC: NEPC 07:32 → NEDA 12:47 → NEPHCDU 16:38 → OBSVTOIN 06-05 13:56 → N05B 06-07 03:31
PROVIDERS: ADMIT Hospitalist; ATTEND Hospitalist
DX: N30.40 Irradiation cystitis without hematuria (principal); N12 Tubulo-interstitial nephritis, not specified as acute or chronic; N17.9 Acute kidney failure, unspecified; N13.39 Other hydronephrosis; I48.91 Unspecified atrial fibrillation; N30.00 Acute cystitis without hematuria; I10 Essential (primary) hypertension; Z86.010 Personal history of colon polyps; K21.9 Gastro-esophageal reflux disease without esophagitis; F41.9 Anxiety disorder, unspecified; F32.9 Major depressive disorder, single episode, unspecified; M19.90 Unspecified osteoarthritis, unspecified site; Z85.46 Personal history of malignant neoplasm of prostate; Z92.3 Personal history of irradiation; M54.2 Cervicalgia; M54.9 Dorsalgia, unspecified; G89.29 Other chronic pain; Y84.2 Radiological procedure and radiotherapy as the cause of abnormal reaction of the patient, or of later complication, without mention of misadventure at the time of the procedure; N32.9 Bladder disorder, unspecified; Z16.12 Extended spectrum beta lactamase (ESBL) resistance; B96.20 Unspecified Escherichia coli [E. coli] as the cause of diseases classified elsewhere; Z78.9 Other specified health status
CPT/HCPCS: 36569; 74177; 76937; 80048; 80053; 81001; 83690; 85025; 87040; 87077; 87086; 87186; 93005; 96361; 96365; 96366; 96376; G0378; G8987-GP; G8988-GP; J0696; J1335; J2405; J7040; J7042; Q9967

== ENCOUNTER 2017-11-28 05:02 | Observation (INO) ==
[2017-11-28] MEDS ORDERED: Pantoprazole Inj 40 MG Vial IV.PUSH ONE (12:11)
[2017-11-28] MEDS ORDERED: Sodium Chlor 0.9% Inj 500 ML IV.SIG ONE (12:13)
--- NOTE | 2017-11-28 12:18 | ED ---
HPI General Chief complaint: GI Bleed Stated complaint: Blood in urine Time Seen by Provider: 11/28/17 12:03 Source: patient, RN notes reviewed and old records reviewed Mode of arrival: ambulatory Limitations: no limitations History of Present Illness HPI Narrative: 87-year-old male presents to the emergency department for evaluation of GI bleeding. Patient states that he woke up at 5 AM and was laying in blood. He then went to the bathroom and had a bloody bowel movement. He since then has had 3 more bowel movements but bright red blood. Patient states he feels weakness, but denies dizziness or syncope. Patient states that he has been having it happen approximately once a week for the past month, but since this morning has become quite frequent. Patient has not had a recent colonoscopy. He denies being on anticoagulants or having any bleeding disorders. He also reports lower abdominal pain, 9/10, constant. He denies any similar abdominal pain in the past. He has history of appendectomy. No fevers or chills. No other symptoms or complaints. He denies drinking alcohol. He denies taking any anti-inflammatories. MD complaint: gross hematochezia Pain Consistency: constant Severity: moderate Relieving factors: none Exacerbating factors: none Associated symptoms: abdominal pain and weakness Related Data Home Medications Medication Instructions Recorded Confirmed No Known Home Medications 11/28/17 11/28/17 Allergies Allergy/AdvReac Type Severity Reaction Status Date / Time benzocaine Allergy Severe ALLERGY TO Unverified 12/25/16 02:42 NOVOCAIN bupivacaine Allergy Severe ALLERGY TO Unverified 12/25/16 02:42 NOVOCAIN ethyl chloride Allergy Severe ALLERGY TO Unverified 12/25/16 02:42 NOVOCAIN lidocaine Allergy Severe ALLERGY TO Unverified 12/25/16 02:42 NOVOCAIN ropivacaine Allergy Severe ALLERGY TO Unverified 12/25/16 02:42 NOVOCAIN Review of Systems Except as stated in HPI: all other systems reviewed are negative [facility] Medical History Medical History Arrhythmia (Acute) HTN (hypertension) (Acute) Prostate cancer (Acute) Recent shoulder injury (Acute) Surgical History Surgical History H/O laminectomy (Acute) History of appendectomy (Acute) Hx of tonsillectomy (Acute) Social History Social History Substance History: No History of Abuse Second Hand Smoke Exposure: No Smoking Status: Never smoker How Often Do You Have a Drink Containing Alcohol: Never Recent Travel in [facility] within the Last 8 Weeks: No Recent Out of Country Travel within the Last 8 Weeks: No Exam Narrative Exam Narrative: GENERAL: Well-nourished, well-developed elderly male patient, afebrile SKIN: Focused skin assessment warm/dry. HEAD: Normocephalic. Atraumatic EYES: No scleral icterus. No injection or drainage. NECK: Supple, trachea midline. No JVD or lymphadenopathy. CARDIOVASCULAR: Regular rate and rhythm without murmurs, gallops, or rubs. RESPIRATORY: Breath sounds equal bilaterally. No accessory muscle use. Lung sounds are clear to auscultation GASTROINTESTINAL: Abdomen soft and nondistended. Patient grimaces to palpation of the lower abdomen, especially suprapubic region MUSCULOSKELETAL: No cyanosis, or edema. BACK: Nontender without obvious deformity. No CVA tenderness. Procedures Hemaprompt Stool Procedural Steps Taken: specimen placed in appropriate test area, developer placed on specimen and control areas and controls appropriately positive and negative Hemaprompt Stool Result: positive Course Initial Documented Vital Signs Temperature 97.5 F L 11/28/17 05:05 Pulse Rate 69 11/28/17 05:05 Respiratory Rate 16 11/28/17 05:05 Blood Pressure 133/65 11/28/17 05:05 Pulse Oximetry 98 11/28/17 05:05 Last Documented Vital Signs Temperature 97.5 F L 11/28/17 05:05 Pulse Rate 80 11/28/17 14:39 Respiratory Rate 18 11/28/17 14:39 Blood Pressure 175/72 H 11/28/17 14:39 Pulse Oximetry 98 11/28/17 14:39 Medical Decision Making SHRAON Attestation SHARON supervised visit: Yes Attestation: I, Dr. Villa, have reviewed the advance practice practitioner's documentation and am in agreement, met with the patient face to face, made the diagnosis, and the medical decision making was done by me. *My assessment and Findings: This is an elderly patient who presents with rectal bleeding. Patient is awake and alert. He is pink. His vital signs are unremarkable. Hemoglobin is 13. Please see Jessica Meza NP's note for a more detailed H&P, final diagnosis and disposition MDM Narrative Medical decision making narrative: 87-year-old male presents to the emergency department for evaluation of GI bleeding that has been worsening since 5 AM this morning. Hemoccult was done and is grossly positive. IV access is obtained. CBC, CMP, lipase, PTT, PT/INR, UA, CT abdomen/pelvis with IV contrast are ordered and pending. Patient is given normal saline 500 mL bolus, Protonix 40 mg IV. CBC shows no acute abnormality. CMP shows slightly elevated BUN of 21. Lipase is 85. PTT is 26.0. PT/INR is 10.6/1.0. UA is negative for acute infection. CT abdomen/pelvis shows unremarkable bowel gas pattern, stable appearance left kidney with simple cyst and prominent collecting system with no definite acute obstruction, mildly heterogeneous liver with decreased attenuation which could be secondary hepatic steatosis and/or hepatocellular dysfunction, status post cholecystectomy. Patient will be admitted for observation for further evaluation. He agrees to this. Dr. Gallardo accepted admission. Differential Diagnosis Differential Diagnosis: Lower GI bleed versus upper GI bleed versus colitis versus anemia Medical Records Medical records reviewed: Yes I reviewed the patient's medical records. Lab Data Result diagrams: 11/28/17 12:35 11/28/17 12:35 Lab Results 11/28/17 11/28/17 11/28/17 Range/Units 12:35 12:35 12:35 WBC 4.1 (4.0-11.0) th/mm3 RBC 4.39 L (4.50-5.90) mil/mm3 Hgb 13.1 (13.0-17.0) gm/dL Hct 39.0 (39.0-51.0) % MCV 88.8 (80.0-100.0) fL MCH 29.8 (27.0-34.0) pg MCHC 33.6 (32.0-36.0) % RDW 14.9 (11.6-17.2) % Plt Count 169 (150-450) th/mm3 MPV 8.7 (7.0-11.0) fL Neut % (Auto) 46.4 (16.0-70.0) % Lymph % (Auto) 38.2 (9.0-44.0) % Person % (Auto) 11.4 H (0.0-8.0) % Eos % (Auto) 2.6 (0.0-4.0) % Baso % (Auto) 1.4 (0.0-2.0) % Neut # (Auto) 1.9 (1.8-7.7) th/mm3 Lymph # (Auto) 1.6 (1.0-4.8) th/mm3 Person # (Auto) 0.5 (0.0-0.9) th/mm3 Eos # (Auto) 0.1 (0.0-0.4) th/mm3 Baso # (Auto) 0.1 (0.0-0.2) th/mm3 WBC Differential . Differential Comment Auto diff final PT 10.6 (9.8-11.6) sec INR 1.0 Ratio APTT 26.0 (24.3-30.1) sec Sodium 142 (136-145) meq/L Potassium 4.3 (3.5-5.1) meq/L Chloride 106 (98-107) meq/L Carbon Dioxide 29.1 (21.0-32.0) meq/L Anion Gap 7 (5-15) meq/L BUN 21 H (7-18) mg/dL Creatinine 0.88 (0.60-1.30) mg/dL Estimated GFR 82 L (>89) mL/min Random Glucose 100 (74-106) mg/dL Calcium 9.0 (8.5-10.1) mg/dL Total Bilirubin 0.5 (0.2-1.0) mg/dL AST 18 (15-37) U/L ALT 20 (12-78) U/L Alkaline Phosphatase 55 (45-117) U/L Total Protein 7.4 (6.4-8.2) g/dL Albumin 4.0 (3.4-5.0) g/dL Lipase 85 (73-393) U/L Urine Color (Yellw/Straw) Urine Clarity (Clear) Urine pH (5.0-8.5) Ur Specific [place] (1.002-1.035) Urine Protein (Neg-Trace) mg/dL Urine Glucose (UA) (Negative) mg/dL Urine Ketones (Negative) mg/dL Urine Occult Blood (Negative) Urine Nitrate (Negative) Urine Bilirubin (Negative) Urine Urobilinogen (Less than 2) mg/dL Ur Leukocyte Esterase (Negative) Urine RBC (0-3) /hpf Urine WBC (0-5) /hpf Ur Squamous Epith Cells (0-5) /hpf Urine Bacteria (None) /hpf Urine Mucus (Occasional) /lpf Micro UA Comment Urine Culture Comments Blood Type Blood Type Recheck Antibody Screen 11/28/17 11/28/17 Range/Units 12:35 12:35 WBC (4.0-11.0) th/mm3 RBC (4.50-5.90) mil/mm3 Hgb (13.0-17.0) gm/dL Hct (39.0-51.0) % MCV (80.0-100.0) fL MCH (27.0-34.0) pg MCHC (32.0-36.0) % RDW (11.6-17.2) % Plt Count (150-450) th/mm3 MPV (7.0-11.0) fL Neut % (Auto) (16.0-70.0) % Lymph % (Auto) (9.0-44.0) % Person % (Auto) (0.0-8.0) % Eos % (Auto) (0.0-4.0) % Baso % (Auto) (0.0-2.0) % Neut # (Auto) (1.8-7.7) th/mm3 Lymph # (Auto) (1.0-4.8) th/mm3 Person # (Auto) (0.0-0.9) th/mm3 Eos # (Auto) (0.0-0.4) th/mm3 Baso # (Auto) (0.0-0.2) th/mm3 WBC Differential Differential Comment PT (9.8-11.6) sec INR Ratio APTT (24.3-30.1) sec Sodium (136-145) meq/L Potassium (3.5-5.1) meq/L Chloride (98-107) meq/L Carbon Dioxide (21.0-32.0) meq/L Anion Gap (5-15) meq/L BUN (7-18) mg/dL Creatinine (0.60-1.30) mg/dL Estimated GFR (>89) mL/min Random Glucose (74-106) mg/dL Calcium (8.5-10.1) mg/dL Total Bilirubin (0.2-1.0) mg/dL AST (15-37) U/L ALT (12-78) U/L Alkaline Phosphatase (45-117) U/L Total Protein (6.4-8.2) g/dL Albumin (3.4-5.0) g/dL Lipase (73-393) U/L Urine Color Yellow (Yellw/Straw) Urine Clarity Clear (Clear) Urine pH 7.0 (5.0-8.5) Ur Specific [place] 1.015 (1.002-1.035) Urine Protein Negative (Neg-Trace) mg/dL Urine Glucose (UA) Negative (Negative) mg/dL Urine Ketones Negative (Negative) mg/dL Urine Occult Blood Negative (Negative) Urine Nitrate Negative (Negative) Urine Bilirubin Negative (Negative) Urine Urobilinogen Less than 2 (Less than 2) mg/dL Ur Leukocyte Esterase Negative (Negative) Urine RBC 2 (0-3) /hpf Urine WBC 1 (0-5) /hpf Ur Squamous Epith Cells <1 (0-5) /hpf Urine Bacteria Occasional H (None) /hpf Urine Mucus Few H (Occasional) /lpf Micro UA Comment Culture not ind Urine Culture Comments Culture not ind Blood Type A Positive Blood Type Recheck Not needed Antibody Screen Negative Imaging Data Radiologist's impression: Abdomen/Pelvis CT 11/28/17 12:11 CONCLUSION: 1. Unremarkable bowel gas pattern. The study was performed without oral contrast limiting the sensitivity. There is no obstruction or inflammatory change. 2. Stable appearance of left kidney with simple cyst and prominent collecting system with no definite acute obstruction. 3. Mildly heterogeneous liver with decreased attenuation which could be secondary to hepatic steatosis and/or hepatocellular dysfunction. 4. Status post cholecystectomy. Discharge Plan Discharge Disposition Patient Disposition: 30 Still Patient Discharge Details Diagnosis: GI bleed Physicians Team ED Provider: Magdalena Villa ED Midlevel Provider: Jessica Meza Primary Care Provider: Brenda Davis Attending Provider: Malissa Gallardo Status ED Status: Admitted Observation Patient
[2017-11-28 12:57] LABS: Baso # (Auto) 0.1 th/mm3 (0.0-0.2); Baso % (Auto) 1.4 % (0.0-2.0); Eos # (Auto) 0.1 th/mm3 (0.0-0.4); Eos % (Auto) 2.6 % (0.0-4.0); Hemoglobin 13.1 gm/dL (13.0-17.0); Lymph # (Auto) 1.6 th/mm3 (1.0-4.8); Lymph % (Auto) 38.2 % (9.0-44.0); Mean Corpuscular HGB Conc 33.6 % (32.0-36.0); Mean Corpuscular Hemoglobin 29.8 pg (27.0-34.0); Mean Corpuscular Volume 88.8 fL (80.0-100.0); Mean Platelet Volume 8.7 fL (7.0-11.0); Mono # (Auto) 0.5 th/mm3 (0.0-0.9); Mono % (Auto) 11.4 % (0.0-8.0); Neut # (Auto) 1.9 th/mm3 (1.8-7.7); Neut % (Auto) 46.4 % (16.0-70.0); Platelet Count 169 th/mm3 (150-450); Red Blood Count 4.39 mil/mm3 (4.50-5.90); Red Cell Distribution Width 14.9 % (11.6-17.2); White Blood Count 4.1 th/mm3 (4.0-11.0)
[2017-11-28 13:08] LABS: Prothrombin Time 10.6 sec (9.8-11.6)
[2017-11-28 13:09] LABS: Bacteria,Urine Occasional /hpf; Bilirubin,Urine Negative (Negative); Color,Urine Yellow (Yellw/Straw); Glucose,Urine (UA) Negative (Negative); Leukocyte Esterase,Urine Negative (Negative); Mucus,Urine Few /lpf (Occasional); Nitrite,Urine Negative (Negative); Specific Gravity,Urine 1.015 (1.002-1.035); Squamous Epithelial Cell,Urine <1 /hpf (0-5)
[2017-11-28 13:11] LABS: Clarity,Urine Clear (Clear)
[2017-11-28 13:43] LABS: Alanine Aminotransferase 20 U/L (12-78); Anion Gap 7 meq/L (5-15); Aspartate Aminotransferase 18 U/L (15-37); Blood Urea Nitrogen 21 mg/dL (7-18); Carbon Dioxide 29.1 meq/L (21.0-32.0); Chloride 106 meq/L (98-107); Glomerular Filtration Rate 82 mL/min (>89); Glucose,Random 100 mg/dL (74-106); Potassium 4.3 meq/L (3.5-5.1); Sodium 142 meq/L (136-145); Total Protein 7.4 g/dL (6.4-8.2)
[2017-11-28 13:44] LABS: Alkaline Phosphatase 55 U/L (45-117); Lipase 85 U/L (73-393)
--- NOTE | 2017-11-28 14:44 | CT ---
EXAM DATE: 11/28/2017 2:34 PM EDT AGE/SEX: 87 years / Male INDICATIONS: Sudden onset of rectal bleeding. CLINICAL DATA: This is the patient's initial encounter. Patient reports that signs and symptoms have been present for 1 day and indicates a pain score of 0/10. MEDICAL/SURGICAL HISTORY: Carcinoma, prostatic. Hypertension. Appendectomy. Prostate seeding. ORAL CONTRAST: No oral contrast ingested. RADIATION DOSE: 6.64 CTDI (mGy) COMPARISON: [facility] [place], CT ABDOMEN & PELVIS W CONTRAST, 06/03/2017. . TECHNIQUE: Multiple contiguous axial images were obtained through the abdomen and pelvis following b olus infusion of 71 ml Omnipaque 350 (iohexol) nonionic water-soluble contrast as a single exam dos e. No oral contrast ingested. Using automated exposure control and adjustment of the mA and/or kV ac cording to patient size, radiation dose was kept as low as reasonably achievable to obtain optimal di agnostic quality images. DICOM format image data is available electronically for review and comparis on. FINDINGS: Lower Lungs: The visualized lower lungs are clear. Liver: The liver is normal in size but decreased in attenuation compared to the spleen and mildly het erogeneous. There is no focal mass or ductal dilatation. The patient is status post cholecystectomy. Spleen: Homogeneous density without enlargement. Pancreas: Unremarkable without mass or calcification. Kidneys: Normal in size and shape. No evidence of a solid mass or hydronephrosis. There are no renal calculi. A cyst is again noted in the upper pole of the left kidney without significant change. The left renal collecting system remains more prominent than the right but is unchanged in appearance wit h no filling defect. Adrenal Glands: Unremarkable. Aorta: The aorta and proximal iliac vessels are grossly unremarkable without aneurysmal dilation. Bowel/Mesentery: The bowel loops are grossly unremarkable. The cecum and sigmoid colon have a normal configuration. Abdominal Wall: Intact. There are postsurgical changes status post anterior abdominal wall hernia re pair. Retroperitoneum: No evidence of adenopathy in the retrocrural, para-aortic, or deep pelvic regions. Bladder: Contours are smooth. Reproductive Organs: No abnormal masses or calcifications seen. There are radiation seed implants in the prostate. Inguinal: The inguinal region is unremarkable without evidence of adenopathy. Bony Structures: Unremarkable. CONCLUSION: 1. Unremarkable bowel gas pattern. The study was performed without oral contrast limiting the sensit ivity. There is no obstruction or inflammatory change. 2. Stable appearance of left kidney with simple cyst and prominent collecting system with no definit e acute obstruction. 3. Mildly heterogeneous liver with decreased attenuation which could be secondary to hepatic steatos is and/or hepatocellular dysfunction. 4. Status post cholecystectomy. Electronically signed by: Giorgio Keith MD 11/28/2017 2:43 PM EDT
[2017-11-28] MEDS ORDERED: Bisacodyl 10 MG Supp RECTAL PRN (15:39)
[2017-11-28] MEDS ORDERED: Acetaminophen 325 MG Tablet PO PRN (15:39)
--- NOTE | 2017-11-28 15:52 | P.HPIM ---
History of Present Illness Primary Care Physician: Brenda Davis MD Chief Complaint: rectal bleeding History of Present Illness: 87-year-old pleasant male with a history of hypertension presents to the emergency room reporting bright red blood per rectum. Patient states that when he woke up this morning around 5:00 he noticed bloody stools and had another episode later that morning and therefore came in for evaluation. He states during the past month he has had rectal bleeding weekly every Sunday which is not persist. Due to the fact that the rectal bleeding persisted and was a large amount this morning he came in for evaluation. He states that the rectal bleeding is not associated abdominal pain. He has not had any nausea nor vomiting. He has not had any change in his bowel movements. He denies a history of constipation or diarrhea. He has not had any chills or fever. He denies having colonoscopy or EGD done in the past. He reports he does not take aspirin daily but that does take ibuprofen [id number] as needed for pain. Review of Systems All other systems reviewed negative except as stated in HPI PMFSH - History History Provided By: Patient - Medical History Medical History: Medical History (Last Updated 11/28/17 @ 15:46 by Malissa Gallardo MD) Arrhythmia Atrial fibrillation HTN (hypertension) Prostate cancer Recent shoulder injury - Surgical History Surgical History: Surgical History (Last Updated 11/28/17 @ 15:47 by Malissa Gallardo MD) H/O laminectomy History of appendectomy Hx of tonsillectomy S/P arthroscopy of right shoulder - Family History Family History: Family History (Last Updated 11/28/17 @ 15:47 by Malissa Gallardo MD) Mother CVA (cerebral vascular accident) - Tobacco History Second Hand Smoke Exposure: No Smoking Status: Never smoker - Alcohol History How Often Do You Have a Drink Containing Alcohol: Never - Substance Use History Substance History: No History of Abuse - Travel History Recent Travel in the [place] Within the Last 8 Weeks: No Recent Travel Out of the Country Within the Last 8 Weeks: No - Immunization History Tetanus Immunization: Unsure Medications and Allergies Active Medications: Active Medications Sodium Chloride (Ns Flush) 2 ml IV.FLUSH PRN PRN PRN Reason: FLUSH AFTER USING IV ACCESS Allergies Allergy/AdvReac Type Severity Reaction Status Date / Time benzocaine Allergy Severe ALLERGY TO Unverified 12/25/16 02:42 NOVOCAIN bupivacaine Allergy Severe ALLERGY TO Unverified 12/25/16 02:42 NOVOCAIN ethyl chloride Allergy Severe ALLERGY TO Unverified 12/25/16 02:42 NOVOCAIN lidocaine Allergy Severe ALLERGY TO Unverified 12/25/16 02:42 NOVOCAIN ropivacaine Allergy Severe ALLERGY TO Unverified 12/25/16 02:42 NOVOCAIN Home Medications Medication Instructions Recorded Confirmed Type No Known Home Medications 11/28/17 11/28/17 History Exam Vital signs: Vital Signs 11/28/17 05:05 11/28/17 12:40 11/28/17 14:39 Temperature 97.5 F L Pulse Rate 69 69 80 Respiratory Rate 16 18 18 Blood Pressure 133/65 182/84 H 175/72 H Pulse Oximetry 98 98 98 Intake & Output 11/27/17 11/28/17 11/28/17 18:59 06:59 18:59 Weight 74.843 kg Narrative: GENERAL: Well-nourished well-developed pleasant male in no acute distress laying in bed SKIN: Warm and dry. HEAD: Atraumatic. Normocephalic. EYES: Pupils equal and round. No scleral icterus. No injection or drainage. ENT: No nasal bleeding or discharge. Mucous membranes pink and moist. NECK: Trachea midline. No JVD. CARDIOVASCULAR: Regular rate and rhythm. RESPIRATORY: No accessory muscle use. Clear to auscultation. Breath sounds equal bilaterally. GASTROINTESTINAL: Abdomen soft, non-tender, nondistended. Hepatic and splenic margins not palpable. Rectal exam deferred due to it being done in the emergency room with heme positive MUSCULOSKELETAL: Extremities without clubbing, cyanosis, or edema. No obvious deformities. NEUROLOGICAL: Awake and alert to person place time and situation. No obvious cranial nerve deficits. Motor grossly within normal limits. Five out of 5 muscle strength in the arms and legs. Normal speech. PSYCHIATRIC: Appropriate mood and affect; insight and judgment normal. Results - Labs CBC & Chem 7: 11/29/17 06:50 11/28/17 12:35 Labs: Short CBC 11/28/17 Range/Units 12:35 WBC 4.1 (4.0-11.0) th/mm3 Hgb 13.1 (13.0-17.0) gm/dL Hct 39.0 (39.0-51.0) % Plt Count 169 (150-450) th/mm3 BMP 11/28/17 12:35 Sodium 142 Potassium 4.3 Chloride 106 Carbon Dioxide 29.1 BUN 21 H Creatinine 0.88 Calcium 9.0 Liver Function 11/28/17 Range/Units 12:35 Total Bilirubin 0.5 (0.2-1.0) mg/dL AST 18 (15-37) U/L ALT 20 (12-78) U/L Alkaline Phosphatase 55 (45-117) U/L Albumin 4.0 (3.4-5.0) g/dL Urine 11/28/17 Range/Units 12:35 Urine Color Yellow (Yellw/Straw) Urine Clarity Clear (Clear) Urine pH 7.0 (5.0-8.5) Ur Specific [place] 1.015 (1.002-1.035) Urine Protein Negative (Neg-Trace) mg/dL Urine Glucose (UA) Negative (Negative) mg/dL - Imaging Impressions Abdomen/Pelvis CT 11/28/17 12:11 CONCLUSION: 1. Unremarkable bowel gas pattern. The study was performed without oral contrast limiting the sensitivity. There is no obstruction or inflammatory change. 2. Stable appearance of left kidney with simple cyst and prominent collecting system with no definite acute obstruction. 3. Mildly heterogeneous liver with decreased attenuation which could be secondary to hepatic steatosis and/or hepatocellular dysfunction. 4. Status post cholecystectomy. Caprini VTE Risk Assessment Caprini VTE Risk Assessment: Moderate/High Risk (score >= 2) Caprini Risk Assessment Model: Point Value = 1 Point Value = 2 Point Value = 3 Point Value = 5 Age 41-60 Minor surgery BMI > 25 kg/m2 Swollen legs Varicose veins or History of unexplained or recurrent spontaneous Oral contraceptives or hormone replacement Sepsis (< 1 month) Serious lung disease, including pneumonia (< 1 month) Abnormal pulmonary function Acute myocardial infarction Congestive heart failure (< 1 month) History of inflammatory bowel disease Medical patient at bed rest Age 61-74 Arthroscopic surgery Major open surgery (> 45 min) Laparoscopic surgery (> 45 min) Malignancy Confined to bed (> 72 hours) Immobilizing plaster cast Central venous access Age >= 75 History of VTE Family history of VTE Factor V Leiden Prothrombin [id number] Lupus anticoagulant Anticardiolipin antibodies Elevated serum homocysteine Heparin-induced thrombocytopenia Other congenital or acquired thrombophilia Stroke (< 1 month) Elective arthroplasty Hip, pelvis, or leg fracture Acute spinal cord injury (< 1 month) Prophylaxis Regimen: Total Risk Factor Score Risk Level Prophylaxis Regimen 0-1 Low Early ambulation 2 Moderate Order ONE of the following: *Sequential Compression Device (SCD) *Heparin 5000 units SQ BID 3-4 Higher Order ONE of the following medications: *Heparin 5000 units SQ TID *Enoxaparin/Lovenox 40 mg SQ daily (WT < 150 kg, CrCl > 30 mL/min) *Enoxaparin/Lovenox 30 mg SQ daily (WT < 150 kg, CrCl > 10-29 mL/min) *Enoxaparin/Lovenox 30 mg SQ BID (WT < 150 kg, CrCl > 30 mL/min) AND/OR *Sequential Compression Device (SCD) 5 or more Highest Order ONE of the following medications: *Heparin 5000 units SQ TID (Preferred with Epidurals) *Enoxaparin/Lovenox 40 mg SQ daily (WT < 150 kg, CrCl > 30 mL/min) *Enoxaparin/Lovenox 30 mg SQ daily (WT < 150 kg, CrCl > 10-29 mL/min) *Enoxaparin/Lovenox 30 mg SQ BID (WT < 150 kg, CrCl > 30 mL/min) AND *Sequential Compression Device (SCD) Assessment and Plan - Plan 87 year old male with history of hypertension presents with bright red blood per rectum 1. GI bleed with BRBPR - serial Hb and Hct with GI consult. Place patient on observation. Start clear liquid diet. PPI 2. Hx of Hypertension - no on any antihypertensives at home. IV vasotec prn to keep sbp<180 3. DVT prophylaxis - scd, anticoagulation contraindicated due to GI bleed.
[2017-11-28] MEDS ORDERED: Morphine Sulfate Inj 2 MG/ML Vial IV.PUSH ONE (15:58)
--- NOTE | 2017-11-28 16:35 | P.CONGI ---
History of Present Illness Consult date: 11/28/17 Consult reason: BRBPR Chief complaint: Blood in stool History of Present Illness: This is a 87 yo M who presented to the ER with complaints of BRBPR. Pt reports that for the past month he has had one episode of BRBPR that always seems to fall on Sunday. He denies any changes in Sunday as compared to the rest of the week. He recently saw his PCP Dr. Mcwilliams who advised him to follow up with a GI doctor for a colonoscopy. Pt reports he came to ER today because he had a significant more amount of blood in his stool than normal. Last episode was early this morning. He denies any associated abdominal pain or cramping, however , he is tender on exam in all quadrants. Also reports nausea, almost every morning when he wakes up but has only had one episode of emesis. Denies hematemesis and coffee ground emesis. States he has noticed that he has been losing weight for the past two months but is unsure of how much. Reports heartburn, states it depends on what he eats so he is unable to provide a frequency. Last EGD and colonoscopy approximately 5 years ago and he can not remember EGD findings but thinks colonoscopy showed diverticulosis and polyps. Denies ETOH, smoking, NSAID use. Does report daily use of Tylenol. Denies known family history of colon cancer. <Letty Burden - Last Filed: 11/28/17 16:22> Review of Systems Gastrointestinal: Reports bright, red blood in stools, Reports loose stools, Reports nausea, Reports vomiting, Denies abdominal pain, Denies constipation, Denies cramping, Denies vomiting blood <Letty Burden - Last Filed: 11/28/17 16:22> [facility] - History History Provided By: Patient - Medical History Medical History: Medical History (Last Updated 11/28/17 @ 15:46 by Malissa Gallardo MD) Arrhythmia Atrial fibrillation HTN (hypertension) Prostate cancer Recent shoulder injury - Surgical History Surgical History: Surgical History (Last Updated 11/28/17 @ 15:47 by Malissa Gallardo MD) H/O laminectomy History of appendectomy Hx of tonsillectomy S/P arthroscopy of right shoulder - Family History Family History: Family History (Last Updated 11/28/17 @ 15:47 by Malissa Gallardo MD) Mother CVA (cerebral vascular accident) - Tobacco History Second Hand Smoke Exposure: No Smoking Status: Never smoker - Alcohol History How Often Do You Have a Drink Containing Alcohol: Never - Substance Use History Substance History: No History of Abuse - Travel History Recent Travel in the [place] Within the Last 8 Weeks: No Recent Travel Out of the Country Within the Last 8 Weeks: No - Immunization History Tetanus Immunization: Unsure <Letty Burden - Last Filed: 11/28/17 16:22> - Medical History Medical History: Medical History (Last Updated 11/28/17 @ 15:46 by Malissa Gallardo MD) Arrhythmia Atrial fibrillation HTN (hypertension) Prostate cancer Recent shoulder injury - Surgical History Surgical History: Surgical History (Last Updated 11/28/17 @ 15:47 by Malissa Gallardo MD) H/O laminectomy History of appendectomy Hx of tonsillectomy S/P arthroscopy of right shoulder - Family History Family History: Family History (Last Updated 11/28/17 @ 15:47 by Malissa Gallardo MD) Mother CVA (cerebral vascular accident) <Liliana Brewer - Last Filed: 11/29/17 18:24> Medications and Allergies Active Medications: Active Medications Acetaminophen (Tylenol) 650 mg PO Q4H PRN PRN Reason: Temp > 100.4 Al Hydroxide/Mg Hydroxide (Milk Of Magnesia Liq) 30 ml PO Q12H PRN PRN Reason: Mild Constipation Bisacodyl (Dulcolax Supp) 10 mg RECTAL DAILY PRN PRN Reason: SEVERE CONSITIPATION Enalaprilat (Vasotec Inj) 1.25 mg IV.PUSH Q6H PRN PRN Reason: SEE LABEL COMMENTS Lactulose (Lactulose Liq) 30 ml PO DAILY PRN PRN Reason: SEVERE CONSITIPATION Ondansetron HCl (Zofran Odt) 4 mg SL Q6H PRN PRN Reason: NAUSEA OR VOMITING Pantoprazole Sodium (Protonix Inj) 40 mg IV.PUSH DAILY KAREL Sennosides (Senokot) 17.2 mg PO Q12H PRN PRN Reason: Moderate Constipation Sodium Chloride (Ns Flush) 2 ml IV.FLUSH PRN PRN PRN Reason: FLUSH AFTER USING IV ACCESS Sodium Chloride (Ns Flush) 2 ml IV.FLUSH BID KAREL <Letty Burden - Last Filed: 11/28/17 16:22> <Liliana Brewer - Last Filed: 11/29/17 18:24> Allergies Allergy/AdvReac Type Severity Reaction Status Date / Time benzocaine Allergy Severe ALLERGY TO Unverified 12/25/16 02:42 NOVOCAIN bupivacaine Allergy Severe ALLERGY TO Unverified 12/25/16 02:42 NOVOCAIN ethyl chloride Allergy Severe ALLERGY TO Unverified 12/25/16 02:42 NOVOCAIN lidocaine Allergy Severe ALLERGY TO Unverified 12/25/16 02:42 NOVOCAIN ropivacaine Allergy Severe ALLERGY TO Unverified 12/25/16 02:42 NOVOCAIN Home Medications Medication Instructions Recorded Confirmed Type No Known Home Medications 11/28/17 11/28/17 History Exam Vital signs: Vital Signs 11/28/17 05:05 11/28/17 12:40 11/28/17 14:39 Temperature 97.5 F L Pulse Rate 69 69 80 Respiratory Rate 16 18 18 Blood Pressure 133/65 182/84 H 175/72 H Pulse Oximetry 98 98 98 11/28/17 15:54 Temperature Pulse Rate 74 Respiratory Rate 18 Blood Pressure 155/70 H Pulse Oximetry 98 Intake & Output 11/27/17 11/28/17 11/28/17 18:59 06:59 18:59 Weight 74.843 kg - Constitutional no acute distress - Routine HEENT Exam Head: Present: normocephalic, atraumatic - Routine Respiratory Exam Absent: accessory muscle use - Routine Cardiovascular Exam Present: irregularly irregular - Routine Abdominal Exam Present: soft, normoactive bowel sounds, tenderness (tender in all 4 quadrants ) . Absent: distended - Routine Skin Exam Present: dry, warm - Routine Neurological Exam Present: alert, oriented X3 <Letty Burden - Last Filed: 11/28/17 16:22> Vital signs: Vital Signs 11/28/17 19:29 11/28/17 23:36 11/29/17 03:07 Temperature 97.9 F 97.4 F L Pulse Rate 70 69 Respiratory Rate 18 16 Blood Pressure 156/68 H 111/56 L Pulse Oximetry 97 97 96 11/29/17 08:45 11/29/17 12:50 11/29/17 16:00 Temperature 97.6 F 98.0 F 98.0 F Pulse Rate 84 88 73 Respiratory Rate 16 18 16 Blood Pressure 134/74 133/97 H 116/57 L Pulse Oximetry 98 100 96 Intake & Output 11/28/17 11/29/17 11/29/17 18:59 06:59 18:59 Intake Total 500 / 500 600 / 600 Output Total 500 / 500 Balance -500 / -500 500 / 500 600 / 600 Intake: IV 500 / 500 600 / 600 LR 1000 mL Inj 1,000 ML @ 30 600 / 600 mls/hr IV.SIG .Q24H [facility] Rx#: [id number] Output: Urine 500 / 500 Other: # Voids 3 Date of Last Bowel Movement 11/28/17 11/28/17 # Bowel Movements 1 <Liliana Brewer - Last Filed: 11/29/17 18:24> Results - Labs CBC & Chem 7: 11/28/17 12:35 11/28/17 12:35 Labs: Laboratory Results - last 24 hr 11/28/17 11/28/17 11/28/17 12:35 12:35 12:35 WBC 4.1 RBC 4.39 L Hgb 13.1 Hct 39.0 MCV 88.8 MCH 29.8 MCHC 33.6 RDW 14.9 Plt Count 169 MPV 8.7 Neut % (Auto) 46.4 Lymph % (Auto) 38.2 [place] % (Auto) 11.4 H Eos % (Auto) 2.6 Baso % (Auto) 1.4 Neut # (Auto) 1.9 Lymph # (Auto) 1.6 [place] # (Auto) 0.5 Eos # (Auto) 0.1 Baso # (Auto) 0.1 WBC Differential . Differential Comment Auto diff final PT 10.6 INR 1.0 APTT 26.0 Sodium 142 Potassium 4.3 Chloride 106 Carbon Dioxide 29.1 Anion Gap 7 BUN 21 H Creatinine 0.88 Estimated GFR 82 L Random Glucose 100 Calcium 9.0 Total Bilirubin 0.5 AST 18 ALT 20 Alkaline Phosphatase 55 Total Protein 7.4 Albumin 4.0 Lipase 85 Urine Color Urine Clarity Urine pH Ur Specific [place] Urine Protein Urine Glucose (UA) Urine Ketones Urine Occult Blood Urine Nitrate Urine Bilirubin Urine Urobilinogen Ur Leukocyte Esterase Urine RBC Urine WBC Ur Squamous Epith Cells Urine Bacteria Urine Mucus Micro UA Comment Urine Culture Comments Blood Type Blood Type Recheck Antibody Screen 11/28/17 11/28/17 12:35 12:35 WBC RBC Hgb Hct MCV MCH MCHC RDW Plt Count MPV Neut % (Auto) Lymph % (Auto) [place] % (Auto) Eos % (Auto) Baso % (Auto) Neut # (Auto) Lymph # (Auto) [place] # (Auto) Eos # (Auto) Baso # (Auto) WBC Differential Differential Comment PT INR APTT Sodium Potassium Chloride Carbon Dioxide Anion Gap BUN Creatinine Estimated GFR Random Glucose Calcium Total Bilirubin AST ALT Alkaline Phosphatase Total Protein Albumin Lipase Urine Color Yellow Urine Clarity Clear Urine pH 7.0 Ur Specific [place] 1.015 Urine Protein Negative Urine Glucose (UA) Negative Urine Ketones Negative Urine Occult Blood Negative Urine Nitrate Negative Urine Bilirubin Negative Urine Urobilinogen Less than 2 Ur Leukocyte Esterase Negative Urine RBC 2 Urine WBC 1 Ur Squamous Epith Cells <1 Urine Bacteria Occasional H Urine Mucus Few H Micro UA Comment Culture not ind Urine Culture Comments Culture not ind Blood Type A Positive Blood Type Recheck Not needed Antibody Screen Negative - Imaging Impressions Abdomen/Pelvis CT 11/28/17 12:11 CONCLUSION: 1. Unremarkable bowel gas pattern. The study was performed without oral contrast limiting the sensitivity. There is no obstruction or inflammatory change. 2. Stable appearance of left kidney with simple cyst and prominent collecting system with no definite acute obstruction. 3. Mildly heterogeneous liver with decreased attenuation which could be secondary to hepatic steatosis and/or hepatocellular dysfunction. 4. Status post cholecystectomy. <Letty Burden - Last Filed: 11/28/17 16:22> - Labs CBC & Chem 7: 11/29/17 06:50 11/28/17 12:35 Labs: Laboratory Results - last 24 hr 11/28/17 11/29/17 23:26 06:50 Hgb 12.6 L 13.0 Hct 37.3 L 38.6 L <Liliana Brewer - Last Filed: 11/29/17 18:24> Assessment and Plan - Plan Assessment: - BRBPR- For the past month he has had one episode of BRBPR that always seems to fall on Sunday. He denies any changes in Sunday as compared to the rest of the week. He recently saw his PCP Dr. Davis who advised him to follow up with a GI doctor for a colonoscopy. Reports he came to ER today because he had a significant more amount of blood in his stool than normal. Last episode was early this morning. Denies abdominal pain and cramping, however, he is tender on exam in all quadrants. Last EGD and colonoscopy approximately 5 years ago and he can not remember EGD findings but thinks colonoscopy showed diverticulosis and polyps. Denies ETOH, smoking, NSAID use. Does report daily use of Tylenol. Denies known family history of colon cancer. - Nausea, almost every morning when he wakes up but has only had one episode of emesis. Denies hematemesis and coffee ground emesis. - Unintentional weight loss- Has been losing weight for the past two months but is unsure of how much. - Occasional heartburn, states it depends on what he eats so he is unable to provide a frequency. CT abdomen and pelvis W IV contrast --> Unremarkable bowel gas pattern. The study was performed without oral contrast limiting the sensitivity. There is no obstruction or inflammatory change. Stable appearance of left kidney with simple cyst and prominent collecting system with no definite acute obstruction. Mildly heterogeneous liver with decreased attenuation which could be secondary to hepatic steatosis and/or hepatocellular dysfunction. Status post cholecystectomy. Plan: EGD and colonoscopy tomorrow Obtain consent Clear liquids today Golytely prep NPO after MN Monitor H/H Further recommendations to follow Pt has been seen and examined by myself and Dr. Brewer and this note is written on his behalf <Letty Burden - Last Filed: 11/28/17 16:22> - Plan Patient was seen and examined, agree with above note, plan to do upper endoscopy and colonoscopy, further workup and plan depends on the finding on the endoscopy <Liliana Brewer - Last Filed: 11/29/17 18:24>
[2017-11-28 17:09] LABS: Hematocrit 35.2 % (39.0-51.0); Hemoglobin 11.8 gm/dL (13.0-17.0)
[2017-11-28] MEDS ORDERED: PEG 3350/E-Lyte Soln 4000 ML Bottle PO ONE (18:00)
[2017-11-28] MEDS ORDERED: Naloxone Inj 0.4 MG/ML Vial IV.PUSH PRN (18:22)
[2017-11-28] MEDS ORDERED: Morphine Inj 4 MG/ML Vial IV.PUSH PRN (18:22)
--- NOTE | 2017-11-28 18:26 | P.PNADD ---
Addendum to Inpatient Note Reason for Addendum: Additional Documentation Additional information: Call from RN, patient is complaining of continued pain. Placed on Morphine IV as well as Percocet per pain scale. EFORCSE consulted and no information found for home prescriptions of narcotics. Continue to monitor response to pain medication.
[2017-11-28 23:39] LABS: Hematocrit 37.3 % (39.0-51.0); Hemoglobin 12.6 gm/dL (13.0-17.0)
[2017-11-29] MEDS ORDERED: Metoprolol Tartrate 25 MG Tablet PO SCH (07:30)
[2017-11-29] MEDS ORDERED: Chlorhexidine Gluconate 2% 1 Pack (2 Cloths) TOPICAL SCH (07:30)
[2017-11-29 07:38] LABS: Hematocrit 38.6 % (39.0-51.0)
[2017-11-29] MEDS ORDERED: Sodium Chlor 0.9% Inj 500 ML IV.SIG SCH (08:00)
[2017-11-29] MEDS ORDERED: Pantoprazole Inj 40 MG Vial IV.PUSH SCH (09:00)
--- NOTE | 2017-11-29 12:50 | GIPROC ---
[facility] [address] [facility]. [facility], [address] COLONOSCOPY PROCEDURE REPORT EXAM DATE: 11/29/2017 PATIENT NAME: Joe Kelley MR #: [id number] BIRTHDATE: 1930 ENDOSCOPIST: Liliana Brewer MD ORDER #: [id number] DIRECTOR PHARMACOLOGY: Jairo Serrano and Tran Lopez STATUS: inpatient INDICATIONS: The patient is a 87 yr old male here for a colonoscopy due to anal bleeding PROCEDURE PERFORMED: Colonoscopy with ablation Colonoscopy with polypectomy MEDICATIONS: None and Per Anesthesia. PREP QUALITY: good ESTIMATED BLOOD LOSS: None CONSENT: The patient understands the risks and benefits of the procedure and understands that these risks include, but are not limited to: sedation, allergic reaction, infection, perforation and/or bleeding. Alternative means of evaluation and treatment include, among others: physical exam, x-rays, and/or surgical intervention. The patient elects to proceed with this endoscopic procedure. medical equipment was checked for proper function. Hand hygiene and appropriate measures for infection prevention was taken. After the risks, benefits and alternatives of the procedure were thoroughly explained, Informed consent was verified, confirmed and timeout was successfully executed by the treatment team. A digital exam revealed no abnormalities of the rectum The Pentax EC-3490Li endoscope was introduced through the anus and advanced to the cecum, which was identified by both the appendix and ileocecal valve. The instrument was then slowly withdrawn as the colon was fully examined. 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 6 mm polyp in the rectum removed completely. Scattered diverticulosis in the sigmoid. Retroflexed views revealed no abnormalities The scope was then completely withdrawn from the patient and the procedure terminated. PROCEDURE WITHDRAWAL TIME:10minutes ADVERSE EVENTS: There were no complications. IMPRESSIONS: 1. 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 6 mm polyp in the rectum removed completely 3. Scattered diverticulosis in the sigmoid 4. Retroflexed views revealed no abnormalities 5. Revealed no abnormalities of the rectum RECOMMENDATIONS: 1. Await biopsy results. Biopsy results will not be ready for 7-10 days. If you don't hear from us in two weeks, call our office for results. 2. May feed patient Okay to discharge home If patient has recurrent bleeding he will need argon plasma coagulation again RECALL: Return 5 years Colonoscopy Liliana Brewer MD eSigned: Liliana Brewer MD 11/29/2017 12:50 PM cc: PATIENT NAME: Joe Kelley MR#: [id number]
--- NOTE | 2017-11-29 12:55 | GIPROC ---
[facility] [address] [facility]. [facility], [address] EGD PROCEDURE REPORT EXAM DATE: 11/29/2017 PATIENT NAME: Joe Kelley MR #: [id number] BIRTHDATE: 1930 ATTENDING: Liliana Brewer MD ORDER #: [id number] DOG OR ANIMAL SITTER: Jairo Serrano and Tran Lopez STATUS: inpatient INDICATIONS: The patient is a 87 yr old male here for an EGD due to heme positive stool PROCEDURE PERFORMED: EGD w/ biopsy MEDICATIONS: None and Per Anesthesia. TOPICAL ANESTHETIC: none CONSENT: The patient understands the risks and benefits of the procedure and understands that these risks include, but are not limited to: sedation, allergic reaction, infection, perforation and/or bleeding. Alternative means of evaluation and treatment include, among others: physical exam, x-rays, and/or surgical intervention. The patient elects to proceed with this endoscopic procedure. medical equipment was checked for proper function. Hand hygiene and appropriate measures for infection prevention was taken. After the risks, benefits and alternatives of the procedure were thoroughly explained, Informed consent was verified, confirmed and timeout was successfully executed by the treatment team. The patient was anesthetized with topical anesthesia and the EC-3490Li (Pedi C) endoscope was introduced through the mouth and advanced to the second portion of the duodenum. Retroflexed views revealed no abnormalities The gastroscope was then slowly withdrawn and removed. Mild irritation in the stomach possible gastritis biopsy from the antrum. ADVERSE EVENTS: There were no complications. IMPRESSIONS: 1. Mild irritation in the stomach possible gastritis biopsy from the antrum 2. Retroflexed views revealed no abnormalities RECOMMENDATIONS: 1. Await biopsy results. Biopsy results will not be ready for 7-10 days. If you don't hear from us in two weeks, call our office for biopsy results. 2. Anti-reflux regimen PATIENT CONDITION: stable DISPOSITION: Inpatient REPEAT EXAM: NONE Liliana Brewer MD eSigned: Liliana Brewer MD 11/29/2017 12:55 PM cc:
[2017-11-29 12:57] VITALS: TEMP 98
--- NOTE | 2017-11-29 15:34 | P.PN ---
Subjective Interval history: Follow-up visit rectal bleed, HTN. Patient seen and examined today. Reports there is no more bleeding when he went to the bathroom. Discussed with patient that he needs to follow-up with GI for the pathology report. If cleared by GI which he could possibly go home. Denies pain and discomfort. Denies SOB/ dyspnea. Denies chest pain, palpitations, headaches, dizziness. Denies fevers, chills, n/v/d. Denies dysuria. Denies hematochezia, hematemesis. Physical Exam Vital signs: Vital Signs 11/28/17 15:54 11/28/17 19:29 11/28/17 23:36 Temperature 97.9 F Pulse Rate 74 70 Respiratory Rate 18 18 Blood Pressure 155/70 H 156/68 H Pulse Oximetry 98 97 97 11/29/17 03:07 11/29/17 08:45 11/29/17 12:50 Temperature 97.4 F L 97.6 F 98.0 F Pulse Rate 69 84 88 Respiratory Rate 16 16 18 Blood Pressure 111/56 L 134/74 133/97 H Pulse Oximetry 96 98 100 Intake & Output 11/28/17 11/29/17 11/29/17 18:59 06:59 18:59 Intake Total 500 / 500 600 / 600 Output Total 500 / 500 Balance -500 / -500 500 / 500 600 / 600 Intake: IV 500 / 500 600 / 600 LR 1000 mL Inj 1,000 ML @ 30 600 / 600 mls/hr IV.SIG .Q24H [facility] Rx#: [id number] Output: Urine 500 / 500 Other: # Voids 3 Date of Last Bowel Movement 11/28/17 # Bowel Movements 1 Narrative: GENERAL: This is a well-nourished, well-developed patient, in no apparent distress. SKIN: Warm and dry HEENT: Normocephalic. Pupils equal round and reactive. Nose without bleeding. Airway patent. NECK: Trachea midline. CARDIOVASCULAR: Regular rate and rhythm without murmurs, gallops, or rubs. RESPIRATORY: Clear to auscultation. Breath sounds equal bilaterally. No wheezes , rales, or rhonchi. GASTROINTESTINAL: Abdomen soft, non-tender, nondistended. Bowel Sounds normoactive x4. MUSCULOSKELETAL: Extremities without clubbing, cyanosis, or edema. NEUROLOGICAL: Awake and alert. Oriented to place, person. No focal neuro deficit. Moves all extremities. Normal speech. Results - Labs CBC & Chem 7: 11/29/17 06:50 11/28/17 12:35 Laboratory Results - last 24 hr 11/28/17 11/28/17 11/29/17 16:45 23:26 06:50 Hgb 11.8 L 12.6 L 13.0 Hct 35.2 L 37.3 L 38.6 L - Procedures EGD/colonoscopy 11/29/17 Assessment and Plan - Assessment (1) GI bleed Code(s): K92.2 - Gastrointestinal hemorrhage, unspecified Status: Acute - Plan 87-year-old pleasant male with a history of hypertension presents to the emergency room reporting bright red blood per rectum. GI bleed with BRBPR -serial Hb and Hct -GI consult. -EGD colonoscopy today. EGD showed mild irritation the stoma possible gastritis biopsy from the antrum. Retroflexed views no abnormalities. Colonoscopy showed rectally radiation proctitis with couple of area that was oozing blood, cauterized with argon plasma coagulation. 6 mm polyp in the rectum removed completely. Scattered diverticulosis in the sigmoid. Retroflexed views revealed no abnormalities. No abnormality seen in the rectum. Patient will follow up with GI to wait for biopsy results in 1-2 weeks. Okay to DC home. -Continue PPI Hx of Hypertension - no on any antihypertensives at home. IV vasotec prn to keep sbp<180 DVT prophylaxis - scd, anticoagulation contraindicated due to GI bleed. Discharge patient to home Condition on discharge: Improved Regular Diet as tolerated Ad Debbie activity Rx written: As per DC plan Follow-up with primary care physician, gastroenterology in 1-2 weeks Code Status: Full code Discussed Condition With: Patient, nursing Discharge Planning: Plan to discharge home today. (1) GI bleed Qualifiers: GI bleed type/associated pathology: unspecified gastrointestinal hemorrhage type Qualified Code(s): K92.2 - Gastrointestinal hemorrhage, unspecified
[2017-11-29 16:09] VITALS: BP 116/57; PULSE 73; RESP 16; O2SAT 96
== END 2017-11-29 17:28 | disposition home or self-care (01) ==
LOC: NEDA 05:02 → NEPHCDU 05:02 → NEPC 05:02 → NEDA 18:19 → NEPHCDU 18:20
PROVIDERS: ADMIT Family Medicine; ATTEND Family Medicine
PROC: PANENDO (2017-11-29 11:45)
PROC: COLONOS (2017-11-29 11:45)